=== PATIENT | female | born 1945 | race Caucasian/White ===

== ENCOUNTER 2016-07-01 12:20 | Day surgery (SDC) | payer MEDICARE ==
[2016-06-28 09:18] VITALS: BMI 46.8
[~2016-07-01 12:20] MED LIST: LACTATED RINGERS 1,000 ML IV SCH
[2016-07-01 12:41] VITALS: RESP 18; TEMP 98
[2016-07-01 12:47] LABS: Glucose,Whole Blood 102 mg/dL (75-99)
[2016-07-01] MEDS ORDERED: LACTATED RINGERS 1,000 ML IV ONE (12:47)
[2016-07-01] MEDS ORDERED: LIDOCAINE 1% 20 ML VIAL (10MG/ML) FOR IV START INTRADERMA ONE (12:48)
[2016-07-01] MEDS ORDERED: LIDOCAINE 1% INJ 10MG/ML (20 ML MDV) ONE (12:50)
[2016-07-01] MEDS ORDERED: PROPOFOL 10 MG/ML 20 ML VIAL IV ONE (12:50)
--- NOTE | 2016-07-01 13:15 | P.GSHP ---
History of Present Illness H&P Date: 07/01/16 Chief Complaint: History of colon cancer Patient here today for colonoscopy. She underwent a low anterior resection last year. Patient is having intermittent constipation. No rectal bleeding or melena. Past Medical History Past Medical History: Cancer, COPD, Diabetes Mellitus, Hyperlipidemia, Hypertension, Liver Disease, Osteoarthritis (OA), Sleep Apnea/CPAP/BIPAP Additional Past Medical History / Comment(s): hx melanoma, IDDM type II, "fatty liver", colon CANCER with surgery and chemo, KIDNEY STONE, neuropathy bilateral hands and feet History of Any Multi-Drug Resistant Organisms: None Reported Past Surgical History: Bowel Resection, Orthopedic Surgery Additional Past Surgical History / Comment(s): 03/08/16 repair incarcerated hernia with mech and removal of port a cath. Other surgical hx: D&C, left foot surgery, PORT A CATHETER, DENTAL IMPLANTS Past Anesthesia/Blood Transfusion Reactions: Previous Problems w/ Anesthesia Additional Past Anesthesia/Blood Transfusion Reaction / Comment(s): "came out fighting, difficult coming out" Past Psychological History: Depression Additional Psychological History / Comment(s): Pt states medication for depression is working well. She lives alone. She uses a cane prn. She drives. Smoking Status: Former smoker Past Alcohol Use History: Rare Additional Past Alcohol Use History / Comment(s): started smoking at age 15 QUIT AT AGE 56 Past Drug Use History: None Reported - Past Family History Brother(s) Family Medical History: Cancer Additional Family Medical History / Comment(s): leukemia Medications and Allergies Home Medications Medication Instructions Recorded Confirmed Type Hydrochlorothiazide [Hydrodiuril] 25 mg PO DAILY 04/08/14 07/01/16 History Nebivolol HCl [Bystolic] 10 mg PO QAM 04/08/14 07/01/16 History Simvastatin [Zocor] 40 mg PO HS 04/08/14 07/01/16 History Tiotropium 18 Mcg/Puff [Spiriva] 1 puff INHALATION RT-DAILY PRN 04/08/14 History Ubidecarenone [Co Q-10] 100 mg PO DAILY 04/08/14 06/28/16 History buPROPion XL [Wellbutrin XL] 150 mg PO QAM 04/08/14 07/01/16 History Fish Oil/Dha/Epa [Fish Oil 1,200 1 cap PO DAILY 04/14/14 06/28/16 History mg Fish Oil] Fluticasone Propionate [Flovent 1 puff INHALATION RT-BID PRN 04/14/14 07/01/16 History Hfa 220MCG] Loratadine [Alavert] 10 mg PO DAILY PRN 01/25/15 07/01/16 History Insulin Aspart [NovoLOG] 0 unit SQ AC-TID 03/07/16 07/01/16 History Insulin Glargine,Hum.rec.anlog 41 unit SQ 2100 03/07/16 07/01/16 History [Lantus Solostar] Magnesium 200 mg PO DAILY 03/07/16 06/28/16 History Pregabalin [Lyrica] 75 mg PO BID 03/07/16 07/01/16 History metFORMIN HCL [Glucophage] 500 mg PO DAILY 03/07/16 07/01/16 History Losartan [Cozaar] 25 mg PO QAM 03/08/16 07/01/16 History Donepezil [Aricept] 10 mg PO HS 06/24/16 07/01/16 History Multivits-Min/Iron/FA/Lutein 1 each PO DAILY 06/28/16 06/28/16 History [Centrum Silver Women Tablet] Allergies Allergy/AdvReac Type Severity Reaction Status Date / Time bee pollen Allergy Severe Anaphylaxis Verified 06/28/16 09:08 hydromorphone [From Dilaudid] Allergy Hallucinati Verified 06/28/16 09:08 ons Penicillins Allergy Rash/Hives Verified 06/28/16 09:08 Surgical - Exam Vital Signs Temp Pulse Resp BP Pulse Ox 98.0 F 67 18 121/67 98 07/01/16 12:40 07/01/16 12:40 07/01/16 12:40 07/01/16 12:40 07/01/16 12:40 Physical exam: General: Well-developed, well-nourished HEENT: Normocephalic, sclerae nonicteric Abdomen: Nontender, nondistended Extremities: No edema Neuro: Alert and oriented Results - Labs Abnormal Lab Results - Last 24 Hours (Table) 07/01/16 Range/Units 12:46 POC Glucose (mg/dL) 102 H (75-99) mg/dL Assessment and Plan (1) Colon cancer Narrative/Plan: Will proceed with colonoscopy today. Status: Acute
--- NOTE | 2016-07-01 13:19 | P.PCN ---
Date of Procedure: 07/01/16 Procedure(s) Performed: PREOPERATIVE DIAGNOSIS: History of colon cancer POSTOPERATIVE DIAGNOSIS: Normal exam PROCEDURE: Colonoscopy ANESTHESIA: MAC SURGEON: Pk Lynn M.D. SPECIMENS: None ENDOSCOPIC PROCEDURE: The patient was placed on the endoscopy table in the left decubitus position. The Olympus colonoscope was inserted into the anus and passed under direct visualization to the base of the cecum. The appendiceal orifice was visualized. From that point the scope was slowly withdrawn inspecting all surfaces carefully. There were no neoplastic inflammatory or polypoid lesions throughout the cecum, ascending, transverse, descending, and distal rectum. The patient's sigmoid colon had been surgically removed. The anastomosis was widely patent and present at about 12 cm. It was no visible diverticulosis. Overall the patient's prep was slightly suboptimal. Digital rectal examination was normal. The patient was taken to the recovery room in stable condition per anesthesia guidelines. RECOMMENDATIONS: Increase fiber. Anticipate follow-up colonoscopy in 3 years.
[2016-07-01 13:40] LABS: Glucose,Whole Blood 99 mg/dL (75-99)
[2016-07-01 13:47] VITALS: BP 114/85; PULSE 60
== END 2016-07-01 14:02 | disposition home or self-care (01) ==
LOC: ORWHC2ENDO 12:20
PROVIDERS: ATTEND Surgery
DX: Z85.038 Personal history of other malignant neoplasm of large intestine (principal); Z90.49 Acquired absence of other specified parts of digestive tract; Z92.21 Personal history of antineoplastic chemotherapy; J44.9 Chronic obstructive pulmonary disease, unspecified; E11.9 Type 2 diabetes mellitus without complications; E78.5 Hyperlipidemia, unspecified; I10 Essential (primary) hypertension; G47.30 Sleep apnea, unspecified; F32.9 Major depressive disorder, single episode, unspecified; Z79.84 Long term (current) use of oral hypoglycemic drugs; Z79.4 Long term (current) use of insulin; Z79.51 Long term (current) use of inhaled steroids; Z79.899 Other long term (current) drug therapy; Z88.5 Allergy status to narcotic agent; Z88.0 Allergy status to penicillin; Z91.030 Bee allergy status; Z87.891 Personal history of nicotine dependence
CPT/HCPCS: 45378; J2001; J2704; 99153

== ENCOUNTER → 2016-07-23 | Outpatient (CLI) | payer MEDICARE ==
--- NOTE | 2016-07-23 16:56 | US ---
EXAMINATION TYPE: US kidneys/renal and bladder DATE OF EXAM: 07/23/2016 4:38 PM COMPARISON: NONE CLINICAL HISTORY: R80.9 Proteinuria, N18.1 CKD Stage 1. Diabetic; on meds for HTN, diabetes, depressi on, cholesterol; [id number].[id number]; right renal stone EXAM MEASUREMENTS: Right Kidney: 10.0 x 7.1 x 4.7cm Left Kidney: 12.8 x 5.5 x 4.9 cm Post Void Residual Volume: fully emptied TECHNOLOGIST IMPRESSION: exam is technically limited due to large body habitus Right Kidney: mid pole calcification = 1.8 x 1.5 x 0.8cm Left Kidney: No hydronephrosis or masses seen Bladder: wnl Bilateral Jets seen: Yes Normal Post Void Residual: Yes There is a nonobstructing calculus within the right renal pelvis. IMPRESSION: NONOBSTRUCTING RIGHT-SIDED NEPHROLITHIASIS.
== END ==
LOC: RADUSWWP 15:42
PROVIDERS: ATTEND Family Medicine
DX: N20.0 Calculus of kidney (principal); N18.1 Chronic kidney disease, stage 1; Z88.5 Allergy status to narcotic agent; Z88.0 Allergy status to penicillin; Z91.030 Bee allergy status
CPT/HCPCS: 76770

== ENCOUNTER → 2016-10-29 | Outpatient (CLI) | payer MEDICARE ==
[2016-10-29 11:29] LABS: Blood Urea Nitrogen 16 mg/dL (7-17); Non-African American GFR(MDRD) 55 (>60 ml/min/1.73 sqM)
--- NOTE | 2016-10-29 13:21 | CT ---
EXAMINATION TYPE: CT abdomen pelvis w con DATE OF EXAM: 10/29/2016 REFERENCE: Previous study dated 10/12/2015. HISTORY: C18.7 colon ca HISTORY: Patient has no complaints at time of study. Follow up study for known colon ca. REFERENCE: NONE CT DLP: 2519.1 mGy Automated exposure control for dose reduction was used. TECHNIQUE: Helical acquisition through the abdomen and pelvis was obtained following the oral ingesti on of with Oral Contrast and following intravenous administration of 80 mL of Visipaque 320. The data was reformatted in axial, coronal and sagittal projections. FINDINGS: There is a 5.9 mm, noncalcified, triangular nodule in the lateral aspect of the right lowe r lobe, best seen on image 1. This was not seen with certainty on the previous examination. No other parenchymal nodules are seen. There is no pleural or pericardial fluid. The heart is not enlarged. Within the abdomen, there is evidence of old granulomatous disease in the spleen. The spleen is lucretia l in size. The liver is enlarged measuring 23 cm. There is a partial eventration of the right hemidia phragm. The gallbladder is normal. Both adrenal glands appear normal. There is a 7.2 mm linear, nonobstructing calculus in the anterior lower pole calyx of the right kidne y. The left kidney is normal. The pancreas is unremarkable. There is moderate atheromatous calcification of the visualized arterial tree. There is no significant retroperitoneal, iliac or inguinal adenopathy. The bladder is unremarkable. The uterus and ovaries are not visualized. There is been a previous sigmoid resection. There is no significant diverticular change and there is no radiographic evidence of diverticulitis. The appendix is not visualized. Small bowel loops appear normal. No free fluid and no free air is seen. There has been repair of the ventricles patient's ventral hernia. There is a soft tissue mass at the surgical site which may represent an old organized hematoma. This measures 3.4 x 8.1 cm. There is diffuse degenerative disc disease with vacuum phenomena present at all lumbar levels. There is facet arthropathy in the lower lumbar spine. No bony destructive lesion is seen. IMPRESSION: 1. NEW, SOLITARY PULMONARY NODULE IN THE LATERAL ASPECT OF THE RIGHT LOWER LOBE. FULL CT OF THE CHEST WOULD BE SUGGESTED. 2. OLD GRANULOMATOUS DISEASE IN THE SPLEEN. 3. HEPATOMEGALY. 4. NONOBSTRUCTING RIGHT-SIDED NEPHROLITHIASIS. 5. POSTSURGICAL CHANGE. 6. DEGENERATIVE CHANGE WITHIN THE SPINE.
== END | disposition home or self-care (01) ==
LOC: RADCTMAIN 10:49
PROVIDERS: ATTEND Internal Medicine Hematology & Oncology
DX: N20.0 Calculus of kidney (principal); R16.0 Hepatomegaly, not elsewhere classified; C18.7 Malignant neoplasm of sigmoid colon; Z98.890 Other specified postprocedural states; Z88.0 Allergy status to penicillin; Z88.5 Allergy status to narcotic agent
CPT/HCPCS: 82565; 84520; 74177; 36415; Q9967

== ENCOUNTER → 2016-11-19 | Outpatient (CLI) | payer MEDICARE ==
[2016-11-19 12:12] LABS: Calcium 8.9 mg/dL (8.4-10.2); Total Bilirubin 0.4 mg/dL (0.2-1.3); Total Protein 8.1 g/dL (6.3-8.2)
--- NOTE | 2016-11-19 13:55 | CT ---
EXAMINATION TYPE: CT chest wo con DATE OF EXAM: 11/19/2016 COMPARISON: Previous study dated 01/10/2015. HISTORY: Colon cancer. Abnormal lung field CT DLP: 585.90 mGycm. Automated Exposure Control for Dose Reduction was Utilized. TECHNIQUE: CT scan of the thorax is performed without IV contrast. FINDINGS: There are 7, stable nodular opacities in the right middle and lower lobes. Triangular densi ty noted on the patient's CT scan of the abdomen previously measured 6 mm and today measures 6.8 mm. This is within the areas of measurement. No new nodules are seen. There is no axillary, internal mammary or hilar adenopathy. There is no pleural or pericardial fluid. The aorta is normal in caliber. The heart is not enlarged. There are coronary artery calcifications as well as other vascular calcifications. There is evidence of old granulomatous disease of the spleen. There is mild fullness to the left adre nal gland without a definite mass being seen. IMPRESSION: 1. STABLE RIGHT-SIDED PULMONARY NODULES. 2. EVIDENCE OF OLD GRANULOMATOUS DISEASE OF THE SPLEEN.
== END | disposition home or self-care (01) ==
LOC: RADCTMAIN 11:28
PROVIDERS: ATTEND Internal Medicine Hematology & Oncology
DX: R91.8 Other nonspecific abnormal finding of lung field (principal)
CPT/HCPCS: 36415; 71250; 80053; 82378

== ENCOUNTER → 2017-11-12 | Outpatient (CLI) | payer MEDICARE ==
--- NOTE | 2017-11-12 12:43 | CT ---
EXAMINATION TYPE: CT abdomen pelvis w con DATE OF EXAM: 11/12/2017 HISTORY: Colon cancer progress study completed chemotherapy [address] DLP: 4299.60mGycm Automated Exposure Control for Dose Reduction was Utilized. CONTRAST: CT scan of the abdomen and pelvis is performed with oral and with IV Contrast, patient injected with 80 mL of Isovue 300. COMPARISON: CT abdomen and pelvis October 29, 2016 and older studies FINDINGS: LUNG BASES: Persistent linear scarring in lingula near diaphragm is redemonstrated there is calcifica tion at level of aortic root and coronary artery calcification which is noted marker for coronary art selvin disease redemonstrated. There is stable 4 mm nodule right midlung laterally axial image 7 unchang ed back through 2014 PET/CT. LIVER/GB: Liver is diffusely low dense consistent with fatty infiltration. Dependent density in gallb ladder consistent with tiny stones axial image 34 is redemonstrated. PANCREAS: No significant abnormality is seen. SPLEEN: There is persistent splenomegaly measuring 18.8 cm long axis axial image 30. Scattered calcif ications felt to reflect product of old granulomatous disease are again seen. ADRENALS: Slight asymmetric thickening to left adrenal gland favors benign hyperplasia without signif icant change from prior studies. KIDNEYS: There is redemonstration of posterior thin-walled 1.7 cm cyst lower pole level right kidney with curvilinear dependent density favoring milk of calcium axial image 46 felt stable. There is symm etric cortical medullary uptake and excretion from both kidneys without hydronephrosis seen bilateral ly. There is persistent 5 mm calculus mid pole level right kidney axial image 43. BOWEL: The oral contrast reaches level of splenic flexure. Surgical sutures sigmoid rectal junction on axial image 80 are redemonstrated. There is no suspicious small or large bowel dilatation. Occasio nal diverticula in sigmoid colon is present. UTERUS/ADNEXA: Anteverted uterus is redemonstrated LYMPH NODES: No greater than 1cm abdominal or pelvic lymph nodes are appreciated. OSSEOUS STRUCTURES: There is multilevel spurring in the spine. There is multilevel vacuum disc phenom enon and disc space narrowing. There is facet arthropathy lower lumbar levels. OTHER: Vertical anterior midline scar is again seen. There is persistent deep fluid collection axial image 60 measuring 4.5 x 1.4 cm diminished in size from most recent prior exam likely reflecting reso lving postsurgical hematoma. There is fairly moderate calcified plaque of aorta extending into iliac branch vessels IMPRESSION: 1. No new mass or adenopathy is identified to suggest neoplastic recurrence. 2.
== END | disposition home or self-care (01) ==
LOC: RADCTMAIN 10:09
PROVIDERS: ATTEND Internal Medicine Hematology & Oncology
DX: C18.7 Malignant neoplasm of sigmoid colon (principal); Z88.0 Allergy status to penicillin; Z88.5 Allergy status to narcotic agent
CPT/HCPCS: 82565; 84520; 74177; 36415; Q9967

== ENCOUNTER → 2017-12-29 | Outpatient (CLI) | payer MEDICARE ==
--- NOTE | 2017-12-29 16:54 | CT ---
EXAMINATION TYPE: CT shoulder RT wo con DATE OF EXAM: 12/29/2017 COMPARISON: None HISTORY: 72-year-old female with pain after fall 2 weeks ago. TECHNIQUE: Contiguous axial scanning of the right shoulder without IV contrast. Coronal and sagittal reconstructions performed. CT DLP: 1093.8 mGycm Automated exposure control for dose reduction was used. FINDINGS: Moderate degenerative joint space narrowing with marginal spurring at the acromioclavicular joints. O verall preserved bulk of the rotator cuff musculature. There is an impacted, comminuted fracture of the proximal right humerus. The degree of impaction of t he surgical neck component measures 2.1 cm, referred for coronal image 29. There is a comminuted frac ture component involving the greater tuberosity which is nondisplaced. No dislocation or additional acute fracture is seen. Mild emphysematous change in the lungs. IMPRESSION: 1. COMMINUTED FRACTURE OF THE PROXIMAL RIGHT HUMERUS. THIS MAY BE A TWO-PART FRACTURE GIVEN 2.1 CM OF IMPACTION OF THE SURGICAL NECK COMPONENT. CLINICALLY CORRELATE. 2. NONDISPLACED COMPONENT OF THE GREATER TUBEROSITY. 3. MODERATE AC JOINT OA.
== END | disposition home or self-care (01) ==
LOC: RADCTMAIN 14:50
PROVIDERS: ATTEND Orthopaedic Surgery
DX: M19.011 Primary osteoarthritis, right shoulder (principal); S42.254A Nondisplaced fracture of greater tuberosity of right humerus, initial encounter for closed fracture

== ENCOUNTER → 2018-11-18 | Outpatient (CLI) | payer MEDICARE ==
[2018-11-18 11:01] LABS: Basophils # (A) 0.1 k/uL (0-0.2); Basophils % (A) 1 %; Eosinophils # (A) 0.2 k/uL (0-0.7); Eosinophils % (A) 2 %; HCT 40.8 % (34.0-46.0); Hypochromasia Slight; Lymphocytes # (A) 1.4 k/uL (1.0-4.8); Lymphocytes % (A) 18 %; MCH 31.8 pg (25.0-35.0); MCHC 31.9 g/dL (31.0-37.0); MCV 99.9 fL (80.0-100.0); Macrocytosis Slight; Mean Platelet Volume 8.5; Monocytes # (A) 0.3 k/uL (0-1.0); Monocytes % (A) 4 %; Neutrophils # (A) 5.7 k/uL (1.3-7.7); Neutrophils % (A) 74 %; Platelet Count 149 k/uL (150-450); RBC 4.08 m/uL (3.80-5.40); RDW 14.8 % (11.5-15.5); WBC 7.8 k/uL (3.8-10.6)
[2018-11-18 11:19] LABS: Albumin 3.9 g/dL (3.5-5.0); Calcium 9.2 mg/dL (8.4-10.2); Potassium 4.2 mmol/L (3.5-5.1); Total Bilirubin 0.5 mg/dL (0.2-1.3); Total Protein 7.9 g/dL (6.3-8.2)
--- NOTE | 2018-11-18 12:31 | CT ---
EXAMINATION TYPE: CT abdomen pelvis w con DATE OF EXAM: 11/18/2018 COMPARISON: 11/12/2017 HISTORY: C18.7 Colon Cancer, Z03.89 Suspect Mets CONTRAST: CT scan of the abdomen and pelvis is performed with Oral Contrast and with IV Contrast, patient injec dahlia with 100 mL of Isovue 300. FINDINGS: LUNG BASES-: No visible nodule. No infiltrate. LIVER/GB: There is evidence of cholelithiasis. Hepatomegaly with underlying hepatic steatosis. No space occupying hepatic lesion. Biliary tree is of normal caliber. PANCREAS: No inflammation. No distinct mass. SPLEEN: Splenomegaly measuring 13.9 cm craniocaudal dimension. Splenic granulomas identified. No lesi on seen. ADRENALS: No nodule. No thickening. KIDNEYS/BLADDER: No hydronephrosis. No nephrolithiasis. Partial calcification cystic lesion lower p ole right kidney measures 2.6 cm and is unchanged from prior study with probable underlying milk of c alcium. Urinary bladder grossly unremarkable. BOWEL: Normal appendix. Normal bowel caliber. No inflammation. Sigmoid resection changes redemonstr ated. No evidence for recurrent mass. GENITAL ORGANS: No gross abnormality. LYMPH NODES: No greater than 1cm abdominal or pelvic lymph nodes are appreciated. AORTA: No significant abnormality. OSSEOUS STRUCTURES: No significant abnormality is seen. OTHER: No significant additional abnormality is seen. IMPRESSION: 1. No evidence for recurrent mass or metastatic disease at this time. 2. Hepatosplenomegaly. 3. Complex right renal lesion is stable.
[2018-11-18 18:42] LABS: Hemoglobin A1C 6.5 % (4.0-6.0)
== END | disposition home or self-care (01) ==
LOC: RADCTMAIN 10:13
PROVIDERS: ATTEND Internal Medicine Hematology & Oncology
DX: N28.9 Disorder of kidney and ureter, unspecified (principal); R16.2 Hepatomegaly with splenomegaly, not elsewhere classified; C18.7 Malignant neoplasm of sigmoid colon; Z03.89 Encounter for observation for other suspected diseases and conditions ruled out; Z88.0 Allergy status to penicillin; Z88.5 Allergy status to narcotic agent
CPT/HCPCS: 80053; 85025; 83036; 74177; 36415; Q9967

== ENCOUNTER → 2019-11-10 | Outpatient (CLI) | payer MEDICARE ==
--- NOTE | 2019-11-10 15:04 | CT ---
EXAMINATION TYPE: CT abdomen pelvis w con DATE OF EXAM: 11/10/2019 COMPARISON: 11/18/2018 INDICATION: Colon cancer DLP: 4008.20 mGycm, Automated exposure control for dose reduction was used. CONTRAST: Isovue 300. Study performed with Oral Contrast TECHNIQUE: Axial images were obtained from above the diaphragm to the pubic rami in the axial plane a t 5 mm thick sections. Reconstructed images are reviewed on the computer in the coronal plane. FINDINGS: Limited CT sections are obtained the lung bases. The lung bases are clear. Coronary artery calcific ation is present. CT ABDOMEN: Liver: Normal Spleen: There are calcifications within the spleen compatible with calcified granuloma. Pancreas: Normal Adrenal glands: The adrenal glands are normal. Gallbladder: Cholelithiasis. Kidneys: No masses are evident. No hydronephrosis is present. No cysts are present. Delayed images were obtained through the kidneys, which remain unremarkable. Aorta: Vascular calcification is within the aorta. Inferior vena cava: Normal. CT PELVIS: There is been a right hemicolectomy. There are loops of bowel which are incompletely distended or lac k oral contrast limiting their evaluation. Fecal debris is in the distal colon and rectum. Appendix: Not identified Urinary bladder: Normal. Genitourinary structures: Uterus appears unremarkable. Adnexal regions are clear. No free fluid is wi thin the pelvis. Osseous structures: No suspicious lytic or sclerotic lesions. Facet degenerative changes are within t he lumbar spine. IMPRESSIONS: 1. No suspicious changes suggest recurrent or metastatic colon cancer. 2. Cholelithiasis.
== END | disposition home or self-care (01) ==
LOC: RADCTMAIN 08:57
PROVIDERS: ATTEND Internal Medicine Hematology & Oncology
DX: K80.20 Calculus of gallbladder without cholecystitis without obstruction (principal); C18.7 Malignant neoplasm of sigmoid colon; Z88.0 Allergy status to penicillin; Z88.5 Allergy status to narcotic agent
CPT/HCPCS: 82565; 84520; 74177; 36415; Q9967

== ENCOUNTER → 2021-12-18 | Outpatient (CLI) | payer MEDICARE ==
--- NOTE | 2021-12-18 15:25 | BD ---
EXAMINATION TYPE: Axial Bone Density DATE OF EXAM: 12/18/2021 COMPARISON: NONE CLINICAL HISTORY: 76 years year old Female. ICD-10 CODE: Z12.31 Screen mammo Height: 5'9 1/2 Weight: 370 FRAX RISK QUESTIONS: History of Fracture in Adulthood: y Secondary Osteoporosis: 3. Menopause before 45: y RISK FACTORS HISTORY OF: History of Wrist Fracture: y When: age 24 Active: n Postmenopausal woman: y Frequent falls: y MEDICATIONS: Additional Medications: cholesterol, depression,blood pressure,diabetic Additional History: cancer,skin cancer ,colon, chemotherapy for colon less than 10 years ago EXAM MEASUREMENTS: Bone mineral densitometry was performed using the [employer]DB[employer] System. Bone mineral density as measured about the Lumbar spine is: ----- L1-L4(G/cm2): 1.183 T Score Values are as follows: ----- L1: -1.1 ----- L2: -0.7 ----- L3: 0.1 ----- L4: 1.3 ----- L1-L4: -0.9 Bone mineral density about the R hip (g/cm2): 0.769 Bone mineral density about the L hip (g/cm2): 0.732 T Score values are as follows: -----R Neck: -1.9 -----L Neck: -2.2 -----R Total: -2.0 -----L Total: -1.4 FRAX%s: The graph provided illustrates a 18.1% chance for a major osteoporotic fx and a 4.4% chance f or the hips probability for fx in 10 years time. IMPRESSION: Osteopenia (T Score between -2.5 and -1). There is slightly increased risk of fracture and the patient may be considered for treatment. Re-Screen 2-5 years. NOTE: T-SCORE=SD OF THE YOUNG ADULT MEAN.
--- NOTE | 2021-12-19 08:57 | MM ---
Reason for Exam: Screening (asymptomatic). Last mammogram was performed 4 year(s) and 4 month(s) ago. Patient History: Menarche at age 10. Patient has no children. Postmenopausal. Colorectal cancer, age 69. Patient used Hormonal Contraceptives for 10 years. Risk Values: Danya 5 year model risk: 2.1%. NCI Lifetime model risk: 4.1%. Prior Study Comparison: 08/06/2013 Bilateral Screening Mammogram, [facility]. 10/09/2015 Bilateral Screening Mammogram, [facility]. 08/12/2017 Bilateral Screening Mammogram, [facility]. Tissue Density: There are scattered fibroglandular densities. Findings: Analyzed By CAD. There is a new 1.3 cm mass demonstrated within the inner lower right breast middle depth. This is oval with irregular margins and demonstrates calcification. Overall Assessment: Incomplete: need additional imaging evaluation, BI-RAD 0 Management: Diagnostic Breast Ultrasound of the right breast. A clinical breast exam by your physician is recommended on an annual basis and results should be correlated with mammographic findings. [facility] will attempt to contact patient to return for supplemental views and ultrasound if indicated. Electronically signed and approved by: Karl Vallecillo D.O.
== END | disposition home or self-care (01) ==
LOC: RADBDWWP 14:19
PROVIDERS: ATTEND Family Medicine
DX: Z12.31 Encounter for screening mammogram for malignant neoplasm of breast (principal); M85.89 Other specified disorders of bone density and structure, multiple sites; Z78.0 Asymptomatic menopausal state; Z85.038 Personal history of other malignant neoplasm of large intestine
CPT/HCPCS: 77063; 77067; 77080

== ENCOUNTER 2022-02-25 06:13 | Day surgery (SDC) | payer MEDICARE ==
[~2022-02-25 06:13] MED LIST changes: +ACETAMINOPHEN TAB 500 MG TAB PO PRN; +HEPARIN SODIUM,PORCINE/PF 5,000 UNIT/0.5 ML SYRINGE SQ PRN; -LACTATED RINGERS 1,000 ML IV SCH; +Pre Op ABX Message 1 EACH MISC MISCELLANE ONE
[2022-02-25] MEDS ORDERED: LACTATED RINGERS 1,000 ML IV SCH (06:14)
[2022-02-25 07:26] LABS: Glucose,Whole Blood 123 mg/dL (70-110)
[2022-02-25] MEDS ORDERED: ceFAZolin 3 GM in SODIUM CHLORIDE 0.9% 100 ML IVPB ONE (07:35)
[2022-02-25 07:39] LABS: Basophils # (A) 0.1 k/uL (0-0.2); Basophils % (A) 1 %; Eosinophils # (A) 0.2 k/uL (0-0.7); Eosinophils % (A) 3 %; HCT 36.3 % (34.0-46.0); HGB 12.3 gm/dL (11.4-16.0); Lymphocytes # (A) 1.3 k/uL (1.0-4.8); Lymphocytes % (A) 17 %; MCHC 33.8 g/dL (31.0-37.0); MCV 97.6 fL (80.0-100.0); Mean Platelet Volume 9.7; Monocytes # (A) 0.4 k/uL (0-1.0); Monocytes % (A) 6 %; Neutrophils # (A) 5.5 k/uL (1.3-7.7); Neutrophils % (A) 73 %; Platelet Count 107 k/uL (150-450); RBC 3.73 m/uL (3.80-5.40); RDW 13.5 % (11.5-15.5); WBC 7.5 k/uL (3.8-10.6)
--- NOTE | 2022-02-25 07:41 | P.NAPBC ---
NAPBC Queries - NAPBC Queries Was patient's case review presented at [facility] tumor board? If no, comment.: No (Patient just seen in office last week. May be presented postop) Was patient's pathology reviewed at [facility]? If no, comment.: Yes Was breast conservation surgery offered? If no, comment.: Yes Was sentinel node biopsy offered? If no, comment.: Yes Was diagnosis confirmed by percutaneous core biopsy? If no, comment.: Yes Is patient mastectomy patient?: No Was a preop referral to reconstructive surgeon offered?: Yes Clinical Stage: 1
[2022-02-25 07:56] LABS: Calcium 8.5 mg/dL (8.4-10.2); Potassium 3.8 mmol/L (3.5-5.1)
[2022-02-25] MEDS ORDERED: ONDANSETRON 4 MG/2 ML VIAL ONE (07:57)
[2022-02-25] MEDS ORDERED: LIDOCAINE 1% INJ 10MG/ML (20 ML MDV) SQ ONE (08:05)
[2022-02-25] MEDS ORDERED: LIDOCAINE 2% INJ 20 MG/ML (2 ML VIAL) ONE (08:37)
[2022-02-25] MEDS ORDERED: PHENYLEPHRINE-0.9% NACL SYG 1,000 MCG/10 ML SYRINGE ONE (08:37)
[2022-02-25] MEDS ORDERED: PROPOFOL 10 MG/ML 20 ML VIAL IV ONE (08:37)
[2022-02-25] MEDS ORDERED: fentaNYL (PF) 50 MCG/ML 2 ML AMP ONE (08:37)
[2022-02-25] MEDS ORDERED: SUCCINYLCHOLINE CHLORIDE 200 MG/10 ML VIAL IV ONE (08:37)
[2022-02-25] MEDS ORDERED: ONDANSETRON 4 MG/2 ML VIAL IVP ONE (08:40)
[2022-02-25] MEDS ORDERED: DEXAMETHASONE SOD PHOSPHATE 4 MG/ML 1 ML VIAL IVP ONE (08:40)
[2022-02-25] MEDS ORDERED: BUPIVACAINE (PF) 0.25% 30 ML VIAL SQ ONE ×2 (09:25)
[2022-02-25] MEDS ORDERED: NALOXONE 0.4 MG/ML 1 ML VIAL IV PRN (09:50)
[2022-02-25 09:53] VITALS: TEMP 97.8
[2022-02-25] MEDS ORDERED: ACETAMINOPHEN TAB 325 MG TAB PO PRN (09:55)
--- NOTE | 2022-02-25 10:03 | P.OP ---
Date of Procedure: 02/25/22 Procedure(s) Performed: PREOPERATIVE DIAGNOSIS: Right breast cancer POSTOPERATIVE DIAGNOSIS: Same PROCEDURE: Right Breast wire localization lumpectomy SURGEON: Leah EBL: Minimal ANESTHESIA: General COMPLICATIONS: None OPERATIVE PROCEDURE: Patient was placed on the operating room table in the supine position. The wire entrance site was then addressed. This was present at the 4:00 location. A curvilinear incision was made adjacent to the wire entrance site. I followed the wire down into the breast tissue. An adequate lumpectomy specimen then took place around the wire. Margins of 1.5-2 cm worth attempted to be achieved. Palpation of the specimen suggested that the medial margin was somewhat close. I took an additional margin medially and this margin was painted the [place] color on the new margin side. The initial specimen was also painted 6 colors. I did unintentionally use [place] on the medial rather than lateral margin. For that reason on the lumpectomy specimen the yellow color was used for the lateral margin. Clips were used to identify the lumpectomy cavity. The clip was confirmed to be within the lumpectomy specimen by radiology. The subcutaneous tissues were closed using 3-0 Vicryl sutures. The skin was closed using a running 4-0 Monocryl stitch. Skin glue was then applied. DISPOSITION: Stable to recovery room
[2022-02-25 10:34] VITALS: RESP 20
[2022-02-25 10:54] LABS: Glucose,Whole Blood 128 mg/dL (70-110)
--- NOTE | 2022-02-25 11:15 | MM ---
Risk Values: Danya 5 year model risk: 2.1%. NCI Lifetime model risk: 3.8%. Electronically signed and approved by: Low Denise DO
[2022-02-25 11:20] VITALS: BP 109/55; PULSE 75
== END 2022-02-25 11:35 | disposition home or self-care (01) ==
LOC: OR 06:13
PROVIDERS: ATTEND Surgery
DX: C50.911 Malignant neoplasm of unspecified site of right female breast (principal); I10 Essential (primary) hypertension; E78.5 Hyperlipidemia, unspecified; J44.9 Chronic obstructive pulmonary disease, unspecified; G47.33 Obstructive sleep apnea (adult) (pediatric); N20.0 Calculus of kidney; M19.90 Unspecified osteoarthritis, unspecified site; G62.9 Polyneuropathy, unspecified; Z88.8 Allergy status to other drugs, medicaments and biological substances; Z91.030 Bee allergy status; Z99.89 Dependence on other enabling machines and devices; Z85.3 Personal history of malignant neoplasm of breast
CPT/HCPCS: 80048; 85025; 76098; 19281; C1819; J0330; J1100; J0690; J2405; J2001 ×2; J3010; J2370; J2704; J1644; 88307

== ENCOUNTER 2022-03-25 09:16 | Day surgery (SDC) | payer MEDICARE ==
[2022-03-21 11:00] VITALS: BMI 52.4
[~2022-03-25 09:16] MED LIST changes: +DEXAMETHASONE SOD PHOSPHATE 4 MG/ML 1 ML VIAL IV ONE; +LACTATED RINGERS 1,000 ML IV SCH; +LIDOCAINE 1% (10MG/ML) FOR IV START INTRADERMA PRN; +MIDAZOLAM 2 MG/2 ML VIAL IV PRN; +ONDANSETRON 4 MG/2 ML VIAL IVP ONE
[2022-03-25 09:59] LABS: Glucose,Whole Blood 93 mg/dL (70-110)
[2022-03-25] MEDS ORDERED: MIDAZOLAM 2 MG/2 ML VIAL ONE (10:13)
[2022-03-25] MEDS ORDERED: PROPOFOL 10 MG/ML 20 ML VIAL IV ONE (10:13)
[2022-03-25] MEDS ORDERED: LIDOCAINE 2% INJ 20 MG/ML (2 ML VIAL) ONE (10:13)
[2022-03-25] MEDS ORDERED: fentaNYL (PF) 50 MCG/ML 2 ML AMP ONE (10:13)
[2022-03-25] MEDS ORDERED: SUCCINYLCHOLINE CHLORIDE 200 MG/10 ML VIAL IV ONE (10:13)
[2022-03-25] MEDS ORDERED: SODIUM CHLORIDE 0.9% 100 ML with ceFAZolin 2,000 MG IV ONE ×2 (10:37)
[2022-03-25] MEDS ORDERED: BUPIVACAIN-EPI 0.25%-1:200,000 30 ML VIAL SQ ONE ×2 (10:38)
[2022-03-25] MEDS ORDERED: NALOXONE 0.4 MG/ML 1 ML VIAL IV PRN (11:28)
--- NOTE | 2022-03-25 11:30 | P.OP ---
Date of Procedure: 03/25/22 Procedure(s) Performed: PREOPERATIVE DIAGNOSIS: Right breast cancer POSTOPERATIVE DIAGNOSIS: Same PROCEDURE: Right Breast re-lumpectomy SURGEON: Leah EBL: Minimal ANESTHESIA: General COMPLICATIONS: None OPERATIVE PROCEDURE: Patient was placed on the operating room table in the supine position. The breast was prepped and draped sterilely. The previous curvilinear incision was present in the lower inner quadrant. This previous scar was excised sharply. The subcutaneous tissues were dissected using el ectrocautery. Entrance into the seroma cavity took place. The inferior margin was then excised with a portion of the adjacent for margins. The new margin was painted green. This was then sent to pathology in formalin. Irrigation took place. No bleeding was seen. The subcutaneous tissues were closed using 3-0 Vicryl sutures. The skin was closed using a running 4-0 Monocryl stitch. Skin glue was then applied. DISPOSITION: Stable to recovery room
[2022-03-25 11:31] VITALS: TEMP 98.6
[2022-03-25 12:31] LABS: Glucose,Whole Blood 112 mg/dL (70-110)
[2022-03-25 13:03] VITALS: BP 111/68; PULSE 70; RESP 15
== END 2022-03-25 13:55 | disposition home or self-care (01) ==
LOC: OR 09:16
PROVIDERS: ATTEND Surgery
DX: D05.11 Intraductal carcinoma in situ of right breast (principal)
CPT/HCPCS: 19301; 88307; J2250; J0330; J1100; J2405; J0690; J3010; J2704; J1644; J2001

== ENCOUNTER → 2022-12-19 | Outpatient (CLI) | payer MEDICARE ==
--- NOTE | 2022-12-19 13:32 | MM ---
Reason for Exam: Hx of breast cancer, conservation therapy. Last screening mammogram was performed 12 month(s) ago. Patient History: Menarche at age 10. Patient has no children. Postmenopausal. Colorectal cancer, age 69. Breast cancer, right, age 77. Patient used Hormonal Contraceptives for 10 years. 03/25/2022, Lumpectomy on the Right side. 02/25/2022, Lumpectomy on the Right side. 02/25/2022, Malignant MG pre op needle loc RT on the right side. Tissue Density: The breast tissue is almost entirely fat. Findings: Analyzed By CAD. Stable right surgical clips. No new suspicious masses, calcifications or distortions. Overall Assessment: Benign, BI-RAD 2 Management: Screening Mammogram of both breasts in 1 year. Results were given to the patient verbally at the time of exam. Patient should continue monthly self-breast exams. A clinical breast exam by your physician is recommended on an annual basis. This exam should not preclude additional follow-up of suspicious palpable abnormalities. Note on Danya scores and lifetime risk: 1. A Danya score greater than 3% is considered moderate risk. If this is the case, consider specialist referral to assess eligibility for a risk reducing agent. 2. If overall lifetime risk for the development of breast cancer is 20% or higher, the patient may qualify for future screening with alternating mammogram and breast MRI. Electronically signed and approved by: Low Denise DO
== END | disposition home or self-care (01) ==
LOC: RADMAMWWP 12:39
PROVIDERS: ATTEND Surgery
DX: R92.8 Other abnormal and inconclusive findings on diagnostic imaging of breast (principal); Z78.0 Asymptomatic menopausal state; Z85.3 Personal history of malignant neoplasm of breast
CPT/HCPCS: 77066; G0279; 77062

== ENCOUNTER 2023-03-21 17:23 | Inpatient (IN) | payer MEDICARE ==
--- NOTE | 2023-03-21 18:32 | ED ---
General Adult HPI - General Chief complaint: Fall Stated complaint: fall Time Seen by Provider: 03/21/23 17:30 Source: patient, EMS, RN notes reviewed Mode of arrival: EMS Limitations: no limitations - History of Present Illness Initial comments: 78-year-old female presents to the emergency department with chief complaint of fall. She states that she had 2 falls today. She states that she feels like she "blacked out" she states that following this she had pain to her left knee but has been able to ambulate. She reports feeling a spinning sensation prior to the fall. She does state that she has a history of vertigo. She did report that she hit her head. She denies blood thinners. She denies chest pain. She is short of breath at baseline and uses 2 L of oxygen at home. - Related Data Home Medications Medication Instructions Recorded Confirmed Simvastatin [Zocor] 40 mg PO HS 04/08/14 03/22/23 buPROPion XL [Wellbutrin XL] 150 mg PO DAILY 04/08/14 03/22/23 hydroCHLOROthiazide [Hydrodiuril] 25 mg PO DAILY 04/08/14 03/22/23 Insulin Glargine,Hum.rec.anlog 68 unit SQ HS 03/07/16 03/22/23 [Lantus Solostar] Pregabalin [Lyrica] 75 mg PO BID 03/07/16 03/22/23 metFORMIN HCL [Glucophage] 500 mg PO DAILY 03/07/16 03/22/23 Multivit-Min/Iron/Folic/Lutein 1 tab PO DAILY 06/28/16 03/22/23 [Centrum Silver Women Tablet] Dulaglutide [Trulicity] 4.5 mg SQ WE 03/22/23 03/22/23 Letrozole [Femara] 2.5 mg PO DAILY 03/22/23 03/22/23 Losartan Potassium 100 mg PO DAILY 03/22/23 03/22/23 Magnesium Oxide [Mag-Ox] 250 mg PO HS 03/22/23 03/22/23 Ubidecarenone [Coenzyme Q10] 200 mg PO DAILY 03/22/23 03/22/23 Previous Rx's Medication Instructions Recorded Albuterol Inhaler [Ventolin Hfa 2 puff INHALATION RT-QID PRN #1 02/08/15 Inhaler] puff Allergies Allergy/AdvReac Type Severity Reaction Status Date / Time bee pollen Allergy Severe Anaphylaxis Verified 03/22/23 11:49 adhesive Allergy Unknown Verified 03/22/23 11:49 hydromorphone [From Dilaudid] Allergy Hallucinati Verified 03/22/23 11:49 ons Penicillins Allergy Rash/Hives Verified 03/22/23 11:49 Review of Systems ROS Statement: Those systems with pertinent positive or pertinent negative responses have been documented in the HPI. ROS Other: All systems not noted in ROS Statement are negative. Past Medical History Past Medical History: Cancer, COPD, Diabetes Mellitus, Hyperlipidemia, Hypertension, Liver Disease, Osteoarthritis (OA), Sleep Apnea/CPAP/BIPAP Additional Past Medical History / Comment(s): hx melanoma, IDDM type II, "fatty liver", colon CANCER with surgery and chemo, KIDNEY STONE, neuropathy bilateral hands and feet. Arthritis in thumbs. bilateral lower leg edema, no machine for sleep apnea. History of Any Multi-Drug Resistant Organisms: None Reported Past Surgical History: Bowel Resection, Breast Surgery, Orthopedic Surgery Additional Past Surgical History / Comment(s): 03/08/16 repair incarcerated hernia with mesh and removal of port a cath. Other surgical hx: D&C, left foot surgery, PORT A CATHETER, DENTAL IMPLANTS. 18 inches of bowel removed for Cancer. arthroscopic rt knee to remove torn meniscus. bilateral cataracts removed, right breast lumpectomy Past Anesthesia/Blood Transfusion Reactions: Previous Problems w/ Anesthesia Additional Past Anesthesia/Blood Transfusion Reaction / Comment(s): "came out fighting, difficult coming out" hard to wake up. Past Psychological History: Depression Smoking Status: Former smoker Past Alcohol Use History: None Reported Past Drug Use History: None Reported - Past Family History Brother(s) Family Medical History: Cancer Additional Family Medical History / Comment(s): leukemia 2 types General Exam Limitations: no limitations General appearance: alert, in no apparent distress Head exam: Present: other (Abrasion to left sided jaw) Eye exam: Present: normal appearance, PERRL, EOMI. Absent: scleral icterus, conjunctival injection, nystagmus, periorbital swelling, periorbital tenderness ENT exam: Present: mucous membranes dry, other (Ecchymosis to the inner lip, lower) Neck exam: Present: normal inspection. Absent: tenderness, meningismus, lymphadenopathy Respiratory exam: Present: wheezes. Absent: respiratory distress, rales, rhonchi, stridor Cardiovascular Exam: Present: regular rate, normal rhythm, normal heart sounds. Absent: systolic murmur, diastolic murmur, rubs, gallop, clicks GI/Abdominal exam: Present: soft, normal bowel sounds. Absent: distended, tenderness, guarding, rebound, rigid Extremities exam: Present: normal inspection, full ROM, normal capillary refill. Absent: tenderness, pedal edema, joint swelling, calf tenderness Back exam: Present: normal inspection Neurological exam: Present: alert, oriented X3 Psychiatric exam: Present: normal affect, normal mood Skin exam: Present: warm, dry, normal color, abrasion. Absent: rash Course Vital Signs 03/21/23 03/21/23 03/21/23 17:24 20:00 22:58 Temperature 98 F Pulse Rate 66 69 71 Respiratory 18 20 20 Rate Blood Pressure 127/92 122/68 116/53 O2 Sat by Pulse 97 95 94 L Oximetry 03/22/23 00:46 Temperature Pulse Rate 75 Respiratory 18 Rate Blood Pressure 111/74 O2 Sat by Pulse 95 Oximetry Medical Decision Making - Medical Decision Making Was pt. sent in by a medical professional or institution (, PA, LENS EDGER, urgent care, hospital, or senior care...) When possible be specific @ -No Did you speak to anyone other than the patient for history (EMS, parent, family, police, friend...)? What history was obtained from this source @ -No Did you review nursing and triage notes (agree or disagree)? Why? @ -I reviewed and agree with nursing and triage notes Were old charts reviewed (outside hosp., previous admission, EMS record, old EKG, old radiological studies, urgent care reports/EKG's, senior care records)? Report findings @ -No old charts were reviewed Differential Diagnosis (chest pain, altered mental status, abdominal pain women, abdominal pain men, vaginal bleeding, weakness, fever, dyspnea, syncope, headache, dizziness, GI bleed, back pain, seizure, CVA, palpatations, mental health, musculoskeletal)? @ -Differential Syncope: Valvular disease, hypertrophic cardiomyopathy, pulmonary embolism, tamponade, tachycardia, bradycardia, TX, hypovolemia, hemorrhage, dissection, anemia, intracranial hemorrhage, seizure, hypoglycemia, carbon monoxide poisoning, this is not meant to be an all-inclusive list. EKG interpreted by me (3pts min.). @ -EKG at 1919 shows sinus bradycardia rate 55, 1 second pause, AL 161, QRS 98, QTQTc [id number] X-rays interpreted by me (1pt min.). @ -Chest XR shows chest x-ray shows cardiomegaly with mild central vascular congestion, diffuse interstitial prominence XR left knee shows no acute fracture CT interpreted by me (1pt min.). @ -CT brain and C-spine shows no acute process. U/S interpreted by me (1pt. min.). @ -None done What testing was considered but not performed or refused? (CT, X-rays, U/S, labs)? Why? @ -None What meds were considered but not given or refused? Why? @ -None Did you discuss the management of the patient with other professionals (professionals i.e. , PA, LENS EDGER, lab, RT, psych nurse, social work nurse, professor of vegetable science, teacher, interface control officer, manager case)? Give summary @ -management discussed with Dr. Balderrama who is accepting of the admission. Was smoking cessation discussed for >3mins.? @ -No Was critical care preformed (if so, how long)? @ -No Were there social determinants of health that impacted care today? How? (Homelessness, low income, unemployed, alcoholism, drug addiction, transpor tation, low edu. Level, literacy, decrease access to med. care, intermediate, rehab)? @ -No Was there de-escalation of care discussed even if they declined (Discuss DNR or withdrawal of care, Hospice)? DNR status @ -No What co-morbidities impacted this encounter? (DM, HTN, Smoking, COPD, CAD, Cancer, CVA, ARF, Chemo, Hep., AIDS, mental health diagnosis, sleep apnea, morbid obesity)? @ -None Was patient admitted / discharged? Hospital course, mention meds given and route, prescriptions, significant lab abnormalities, going to OR and other pertinent info. @ -admitted. Patient presented to the emergency department with chief complaint of "blacking out" and falling causing her to hit her head. EKG shows sinus bradycardia. Chest x-ray shows cardiomegaly with mild central vascular congestion. X-ray of the left knee shows no acute fracture. CT brain and C- spine shows no acute process. Laboratory studies obtained which shows hemoglobin 8.1. Patient denies any known bleeding., Hematocrit 24.5; CMP shows sodium 141, potassium 4.2, creatinine 1.86, BUN 58; troponin negative, BNP 967; UA shows large leukocyte Estrace, 28 wbc's; Hemoccult positive. Case was disc ussed with Dr. Balderrama she will be admitted for anemia, abnormal EKG, cardiology consult. Dr. Balderrama requests repeat H&H every 6 hours. Patient stable at time of admission. Case discussed with Dr. Adame Undiagnosed new problem with uncertain prognosis? @ -No Drug Therapy requiring intensive monitoring for toxicity (Heparin, Nitro, I nsulin, Cardizem)? @ -No Were any procedures done? @ -No Diagnosis/symptom? @ -syncope, anemia Acute, or Chronic, or Acute on Chronic? @ -acute Uncomplicated (without systemic symptoms) or Complicated (systemic symptoms)? @ -uncomplicated Side effects of treatment? @ -No Exacerbation, Progression, or Severe Exacerbation? @ -No Poses a threat to life or bodily function? How? (Chest pain, [place], [place], pneumonia, PE, COPD, DKA, ARF, appy, cholecystitis, CVA, Diverticulitis, Homicidal, Suicidal, threat to staff... and all critical care pts) @ -No - Lab Data Result diagrams: 03/23/23 05:43 03/23/23 05:43 Lab Results 03/21/23 03/21/23 03/21/23 Range/Units 20:06 20:06 20:06 WBC 6.9 (3.8-10.6) k/uL RBC 2.46 L (3.80-5.40) m/uL Hgb 8.1 L (11.4-16.0) gm/dL Hct 24.5 L (34.0-46.0) % MCV 99.8 (80.0-100.0) fL MCH 32.9 (25.0-35.0) pg MCHC 32.9 (31.0-37.0) g/dL RDW 14.9 (11.5-15.5) % Plt Count 103 L (150-450) k/uL MPV 9.6 Neutrophils % 76 % Lymphocytes % 16 % Monocytes % 6 % Eosinophils % 1 % Basophils % 0 % Neutrophils # 5.3 (1.3-7.7) k/uL Lymphocytes # 1.1 (1.0-4.8) k/uL Monocytes # 0.4 (0-1.0) k/uL Eosinophils # 0.1 (0-0.7) k/uL Basophils # 0.0 (0-0.2) k/uL Hypochromasia Slight Macrocytosis Slight PT 11.2 (10.0-12.5) sec INR 1.0 (<1.2) APTT 19.5 L (22.0-30.0) sec Sodium 141 (137-145) mmol/L Potassium 4.2 (3.5-5.1) mmol/L Chloride 101 (98-107) mmol/L Carbon Dioxide 35 H (22-30) mmol/L Anion Gap 5 mmol/L BUN 58 H (7-17) mg/dL Creatinine 1.86 H (0.52-1.04) mg/dL Est GFR (CKD-EPI)AfAm 29 (>60 ml/min/1.73 sqM) Est GFR (CKD-EPI)NonAf 25 (>60 ml/min/1.73 sqM) Glucose 88 (74-99) mg/dL Plasma Lactic Acid Joe (0.7-2.0) mmol/L Calcium 8.8 (8.4-10.2) mg/dL Magnesium 2.4 H (1.6-2.3) mg/dL Total Bilirubin 0.4 (0.2-1.3) mg/dL AST 31 (14-36) U/L ALT 24 (4-34) U/L Alkaline Phosphatase 88 (38-126) U/L Troponin I (0.000-0.034) ng/mL NT-Pro-B Natriuret Pep pg/mL Total Protein 7.0 (6.3-8.2) g/dL Albumin 3.3 L (3.5-5.0) g/dL Urine Color Urine Appearance (Clear) Urine pH (5.0-8.0) Ur Specific Cable (1.001-1.035) Urine Protein (Negative) Urine Glucose (UA) (Negative) Urine Ketones (Negative) Urine Blood (Negative) Urine Nitrite (Negative) Urine Bilirubin (Negative) Urine Urobilinogen (<2.0) mg/dL Ur Leukocyte Esterase (Negative) Urine RBC (0-5) /hpf Urine WBC (0-5) /hpf Ur Squamous Epith Cells (0-4) /hpf Urine Bacteria (None) /hpf Urine Mucus (None) /hpf 03/21/23 03/21/23 03/21/23 Range/Units 20:06 20:06 21:06 WBC (3.8-10.6) k/uL RBC (3.80-5.40) m/uL Hgb (11.4-16.0) gm/dL Hct (34.0-46.0) % MCV (80.0-100.0) fL MCH (25.0-35.0) pg MCHC (31.0-37.0) g/dL RDW (11.5-15.5) % Plt Count (150-450) k/uL MPV Neutrophils % % Lymphocytes % % Monocytes % % Eosinophils % % Basophils % % Neutrophils # (1.3-7.7) k/uL Lymphocytes # (1.0-4.8) k/uL Monocytes # (0-1.0) k/uL Eosinophils # (0-0.7) k/uL Basophils # (0-0.2) k/uL Hypochromasia Macrocytosis PT (10.0-12.5) sec INR (<1.2) APTT (22.0-30.0) sec Sodium (137-145) mmol/L Potassium (3.5-5.1) mmol/L Chloride (98-107) mmol/L Carbon Dioxide (22-30) mmol/L Anion Gap mmol/L BUN (7-17) mg/dL Creatinine (0.52-1.04) mg/dL Est GFR (CKD-EPI)AfAm (>60 ml/min/1.73 sqM) Est GFR (CKD-EPI)NonAf (>60 ml/min/1.73 sqM) Glucose (74-99) mg/dL Plasma Lactic Acid Joe 1.4 (0.7-2.0) mmol/L Calcium (8.4-10.2) mg/dL Magnesium (1.6-2.3) mg/dL Total Bilirubin (0.2-1.3) mg/dL AST (14-36) U/L ALT (4-34) U/L Alkaline Phosphatase (38-126) U/L Troponin I <0.012 (0.000-0.034) ng/mL NT-Pro-B Natriuret Pep 967 pg/mL Total Protein (6.3-8.2) g/dL Albumin (3.5-5.0) g/dL Urine Color Urine Appearance (Clear) Urine pH (5.0-8.0) Ur Specific Cable (1.001-1.035) Urine Protein (Negative) Urine Glucose (UA) (Negative) Urine Ketones (Negative) Urine Blood (Negative) Urine Nitrite (Negative) Urine Bilirubin (Negative) Urine Urobilinogen (<2.0) mg/dL Ur Leukocyte Esterase (Negative) Urine RBC (0-5) /hpf Urine WBC (0-5) /hpf Ur Squamous Epith Cells (0-4) /hpf Urine Bacteria (None) /hpf Urine Mucus (None) /hpf 03/21/23 Range/Units 22:00 WBC (3.8-10.6) k/uL RBC (3.80-5.40) m/uL Hgb (11.4-16.0) gm/dL Hct (34.0-46.0) % MCV (80.0-100.0) fL MCH (25.0-35.0) pg MCHC (31.0-37.0) g/dL RDW (11.5-15.5) % Plt Count (150-450) k/uL MPV Neutrophils % % Lymphocytes % % Monocytes % % Eosinophils % % Basophils % % Neutrophils # (1.3-7.7) k/uL Lymphocytes # (1.0-4.8) k/uL Monocytes # (0-1.0) k/uL Eosinophils # (0-0.7) k/uL Basophils # (0-0.2) k/uL Hypochromasia Macrocytosis PT (10.0-12.5) sec INR (<1.2) APTT (22.0-30.0) sec Sodium (137-145) mmol/L Potassium (3.5-5.1) mmol/L Chloride (98-107) mmol/L Carbon Dioxide (22-30) mmol/L Anion Gap mmol/L BUN (7-17) mg/dL Creatinine (0.52-1.04) mg/dL Est GFR (CKD-EPI)AfAm (>60 ml/min/1.73 sqM) Est GFR (CKD-EPI)NonAf (>60 ml/min/1.73 sqM) Glucose (74-99) mg/dL Plasma Lactic Acid Joe (0.7-2.0) mmol/L Calcium (8.4-10.2) mg/dL Magnesium (1.6-2.3) mg/dL Total Bilirubin (0.2-1.3) mg/dL AST (14-36) U/L ALT (4-34) U/L Alkaline Phosphatase (38-126) U/L Troponin I (0.000-0.034) ng/mL NT-Pro-B Natriuret Pep pg/mL Total Protein (6.3-8.2) g/dL Albumin (3.5-5.0) g/dL Urine Color Light Yellow Urine Appearance Clear (Clear) Urine pH 5.0 (5.0-8.0) Ur Specific Cable 1.020 (1.001-1.035) Urine Protein Trace H (Negative) Urine Glucose (UA) Negative (Negative) Urine Ketones Negative (Negative) Urine Blood Negative (Negative) Urine Nitrite Negative (Negative) Urine Bilirubin Negative (Negative) Urine Urobilinogen <2.0 (<2.0) mg/dL Ur Leukocyte Esterase Large H (Negative) Urine RBC 3 (0-5) /hpf Urine WBC 28 H (0-5) /hpf Ur Squamous Epith Cells 4 (0-4) /hpf Urine Bacteria Rare H (None) /hpf Urine Mucus Rare H (None) /hpf Disposition Clinical Impression: Syncope, Anemia Disposition: ADMITTED IP TO THIS HOSP Condition: Stable Is patient prescribed a controlled substance at d/c from ED?: No
--- NOTE | 2023-03-21 20:03 | XR ---
EXAMINATION TYPE: XR knee complete LT DATE OF EXAM: 03/21/2023 COMPARISON: None HISTORY: 78-year-old female with pain after multiple falls TECHNIQUE: 3 views FINDINGS: Generalized subcutaneous soft tissue swelling is present. There is moderate to severe loss of cartila ge and joint space in the medial compartment with tricompartmental degenerative spurring. Small knee joint effusion is present. Extensor mechanism intact. No acute fracture, subluxation, or dislocation seen. IMPRESSION: 1. Generalized subcutaneous soft tissue swelling. Correlate for soft tissue contusion, venous stasis, or other nonspecific lower extremity edema. 2. Small knee joint effusion may be reactive to the underlying osteoarthritis or reactive to the ana ent's injury. No acute osseous abnormality seen. 3. Tricompartmental osteoarthrosis, moderate to severe in the medial compartment.
[2023-03-21 20:23] LABS: Basophils % (A) 0 %; Eosinophils # (A) 0.1 k/uL (0-0.7); Eosinophils % (A) 1 %; HCT 24.5 % (34.0-46.0); HGB 8.1 gm/dL (11.4-16.0); Hypochromasia Slight; Lymphocytes # (A) 1.1 k/uL (1.0-4.8); Lymphocytes % (A) 16 %; MCH 32.9 pg (25.0-35.0); MCHC 32.9 g/dL (31.0-37.0); MCV 99.8 fL (80.0-100.0); Macrocytosis Slight; Mean Platelet Volume 9.6; Monocytes # (A) 0.4 k/uL (0-1.0); Monocytes % (A) 6 %; Neutrophils # (A) 5.3 k/uL (1.3-7.7); Neutrophils % (A) 76 %; Platelet Count 103 k/uL (150-450); RBC 2.46 m/uL (3.80-5.40); RDW 14.9 % (11.5-15.5); WBC 6.9 k/uL (3.8-10.6)
--- NOTE | 2023-03-21 20:24 | CT ---
EXAMINATION TYPE: CT brain cspine wo con CT DLP: 1835 mGycm, Automated exposure control for dose reduction was used. DATE OF EXAM: 03/21/2023 6:50 PM COMPARISON: None. CLINICAL INDICATION:Female, 78 years old with history of fall; fall TECHNIQUE: Brain: Multiple axial CT images of the brain were obtained without IV contrast. Cspine: Axial CT images from the skull base to the inferior aspect of T2 we obtained without intraven ous contrast. Coronal and sagittal reformatted images were also reviewed. FINDINGS: Brain: Extra-axial spaces: No abnormal extra-axial fluid collections. Ventricular system: Dilatation in proportion to degree of cerebral atrophy. Cerebral parenchyma: No acute intraparenchymal hemorrhage or mass effect. Mild/moderate generalized brain atrophy. No loss of graham-white matter distinction to suggest acute infarct. There are mild patc hy hypoattenuating areas seen throughout the cerebral white matter, nonspecific but usually seen with chronic microvascular ischemia. Cerebellum: No acute abnormality. Mass effect: No evidence of midline shift. Intracranial vasculature: Mild calcification of the carotid siphons. Soft tissues: Unremarkable. Calvarium/osseous structures: No acute calvarial fracture seen. Paranasal sinuses and mastoid air cells: No fluid accumulation. Mild mucosal thickening maxillary sin uses. Visualized orbits: Orbital contents appear grossly intact. MRI is more sensitive for detecting acute processes such as infarct, and may be considered if clinica lly warranted. Cervical spine: Fracture: None. Osseous structures, spinal canal/neural foramina: Mild/moderate multilevel degenerative disc disease and facet arthrosis, greatest in the mid cervical spine. There is associated mild to moderate spinal canal and neural foraminal stenoses at each level from C3 to C7. Vertebral alignment: Within normal limits. Neck soft tissues: Prevertebral soft tissues are within normal limits. No other significant findings. Other: Mild degenerative change of the left TMJ. Patient appears dentulous, with a couple of partiall y visualized metallic screw/anchors in the anterior mandible partially seen. Lung apices show no acut e infiltrate or pneumothorax. Mild biapical emphysema. IMPRESSION: CT head: No acute intracranial abnormality. Mild atrophy and chronic microvascular ischemic changes. CT cervical spine: No evidence of cervical spine fracture or traumatic malalignment . Mild/moderate cervical spondylosis.
--- NOTE | 2023-03-21 20:45 | XR ---
EXAMINATION TYPE: XR chest 2V DATE OF EXAM: 03/21/2023 7:07 PM CLINICAL INDICATION:Female, 78 years old with history of Weakness; PH[facility] COMPARISON: None TECHNIQUE: XR chest 2V Frontal and lateral views of the chest. FINDINGS: Exam is limited by patient body habitus. Lines/Tubes: No indwelling lines are seen. Lungs/Pleura: There is no evidence of pleural effusion, focal consolidation, or pneumothorax. Pulmonary vascularity: Mild pulmonary vascular congestion. Diffusely increased interstitial markings can be seen with edema or infiltrates. Heart/mediastinum: Mildly to moderately enlarged cardiac silhouette suggesting cardiomegaly. Partiall y calcified mildly tortuous aorta. Musculoskeletal: No acute osseous pathology. Mild/moderate diffuse degenerative changes. Other findings: None IMPRESSION: Cardiomegaly with mild central vascular congestion and diffuse interstitial prominence suggesting shanel ma. Correlate for mild CHF.
[2023-03-21 20:53] LABS: ALT 24 U/L (4-34); AST 31 U/L (14-36); African American GFR (CKD) 29 (>60 ml/min/1.73 sqM); Albumin 3.3 g/dL (3.5-5.0); Alkaline Phosphatase 88 U/L (38-126); Anion Gap 5 mmol/L; Blood Urea Nitrogen 58 mg/dL (7-17); Calcium 8.8 mg/dL (8.4-10.2); Carbon Dioxide 35 mmol/L (22-30); Chloride 101 mmol/L (98-107); Glucose 88 mg/dL (74-99); Magnesium 2.4 mg/dL (1.6-2.3); Non-African American GFR(CKD) 25 (>60 ml/min/1.73 sqM); Potassium 4.2 mmol/L (3.5-5.1); Sodium 141 mmol/L (137-145); Total Bilirubin 0.4 mg/dL (0.2-1.3)
[2023-03-21 20:56] LABS: Prothrombin Time 11.2 sec (10.0-12.5)
[2023-03-21 21:00] LABS: Partial Thromboplastin Time 19.5 sec (22.0-30.0)
[2023-03-21] MEDS ORDERED: SODIUM CHLORIDE 0.9% 500 ML 500 ML IV ONE (23:01)
[2023-03-21 23:05] LABS: Appearance,Urine Clear (Clear); Bacteria,Urine Rare /hpf; Bilirubin,Urine Negative (Negative); Blood,Urine Negative (Negative); Color,Urine Light Yellow; Glucose,Urine (UA) Negative (Negative); Ketones,Urine Negative (Negative); Leukocyte Esterase,Urine Large (Negative); Mucus,Urine Rare /hpf; Nitrite,Urine Negative (Negative); Protein,Urine Trace (Negative); RBC,Urine 3 /hpf (0-5); Squamous Epithelial Cell,Urine 4 /hpf (0-4); Urobilinogen,Urine <2.0 mg/dL (<2.0); WBC,Urine 28 /hpf (0-5)
[2023-03-21] MEDS ORDERED: MORPHINE SULFATE 4 MG/ML SYRINGE IV PRN (23:31)
[2023-03-21] MEDS ORDERED: ACETAMINOPHEN TAB 325 MG TAB PO PRN (23:31)
[2023-03-21] MEDS ORDERED: NALOXONE 0.4 MG/ML 1 ML VIAL IV PRN (23:31)
[2023-03-22] MEDS ORDERED: DEXTROSE 50% SYRINGE 50 ML IVP PRN ×2 (00:25)
[2023-03-22 06:13] LABS: Glucose,Whole Blood 114 mg/dL (70-110)
[2023-03-22] MEDS: INSULIN ASPART (NovoLOG) 100 UNIT/ML VIAL SQ SCH ×4 (06:24→22:18)
[2023-03-22] MEDS: amLODIPine 5 MG TAB PO SCH (09:12)
[2023-03-22] MEDS: LOSARTAN 25 MG TAB PO SCH (09:12)
[2023-03-22 09:47] LABS: Basophils % (A) 0 %; Eosinophils # (A) 0.1 k/uL (0-0.7); Eosinophils % (A) 2 %; HCT 24.2 % (34.0-46.0); HGB 7.5 gm/dL (11.4-16.0); Hypochromasia Moderate; Lymphocytes # (A) 1.2 k/uL (1.0-4.8); Lymphocytes % (A) 19 %; MCHC 31.1 g/dL (31.0-37.0); MCV 102.9 fL (80.0-100.0); Macrocytosis Slight; Mean Platelet Volume 9.5; Monocytes # (A) 0.3 k/uL (0-1.0); Monocytes % (A) 4 %; Neutrophils # (A) 4.4 k/uL (1.3-7.7); Neutrophils % (A) 72 %; RBC 2.35 m/uL (3.80-5.40); WBC 6.2 k/uL (3.8-10.6)
[2023-03-22 10:26] LABS: Platelet Count 99 k/uL (150-450)
[2023-03-22 11:54] LABS: Glucose,Whole Blood 255 mg/dL (70-110)
[2023-03-22] MEDS ORDERED: metFORMIN 500 MG TAB PO SCH (12:15)
--- NOTE | 2023-03-22 12:24 | CA ---
Transthoracic Echo Report Name: Kamini Nance Age: 78 Gender: F : 1945 Exam Date: 03/22/2023 08:44 Exam Location: [facility] Ht (in): 70 Wt (lb): 378 Ordering Physician: Davide Ojeda Attending/Referring Phys: Zinc Chloride Operator Mecca Thomas [facility] Procedure CPT: Indications: Syncope Cardiac Hx: Technical Quality: Contrast 1: Total Dose (mL): Contrast 2: Total Dose (mL): MEASUREMENTS (Male / Female) Normal Values 2D ECHO LV Diastolic Diameter PLAX 5.0 cm 4.2 - 5.9 / 3.9 - 5.3 cm LV Systolic Diameter PLAX 3.7 cm IVS Diastolic Thickness 1.0 cm 0.6 - 1.0 / 0.6 - 0.9 cm LVPW Diastolic Thickness 1.0 cm 0.6 - 1.0 / 0.6 - 0.9 cm LV Relative Wall Thickness 0.4 DOPPLER AV Peak Velocity 178.0 cm/s AV Peak Gradient 12.7 mmHg AV Mean Velocity 126.6 cm/s AV Mean Gradient 7.3 mmHg AV Velocity Time Integral 43.2 cm LVOT Peak Velocity 130.2 cm/s LVOT Peak Gradient 6.8 mmHg LVOT Velocity Time Integral 35.1 cm MV Peak Velocity 142.2 cm/s MV Peak Gradient 8.1 mmHg MV Mean Velocity 92.8 cm/s MV Mean Gradient 3.7 mmHg MV Velocity Time Integral 51.4 cm Mitral E Point Velocity 102.1 cm/s Mitral A Point Velocity 100.5 cm/s Mitral E to A Ratio 1.0 MV Deceleration Time 304.2 ms LV E' Lateral Velocity 10.2 cm/s Mitral E to LV E' Lateral Ratio 10.0 LV E' Septal Velocity 8.4 cm/s Mitral E to LV E' Septal Ratio 12.1 TR Peak Velocity 235.4 cm/s TR Peak Gradient 22.2 mmHg Right Atrial Pressure 15.0 mmHg Pulmonary Artery Systolic Pressu 37.2 mmHg Right Ventricular Systolic Press 37.2 mmHg FINDINGS Left Ventricle Mildly increased left ventricular wall thickness. Left ventricular cavity size at the upper limits of normal. Normal left ventricular systolic function with no obvious regional wall motion abnormalities. Left ventricular ejection fraction is estimated at 55-60%. Right Ventricle Severe right ventricular dilatation. Mild pulmonary hypertension. Right Atrium Severe right atrial dilatation. Left Atrium Moderate left atrial dilatation. Mitral Valve Mild thickening/calcification of the posterior mitral valve leaflet. Mild mitral regurgitation. Aortic Valve Trileaflet aortic valve. Aortic valve sclerosis. No aortic regurgitation. Tricuspid Valve Structurally normal tricuspid valve. Mild tricuspid regurgitation. Pulmonic Valve Pulmonic valve not well visualized. Pericardium Minimal pericardial effusion (normal variant). Aorta Aortic root and proximal ascending aorta not well visualized. CONCLUSIONS Normal LV systolic function Right ventricular enlargement Biatrial enlargement Previewed by: Dr. Binu Zelaya MD (Electronically Signed) Final Date: 22 March 2023 12:23
[2023-03-22] MEDS: MULTIVITAMINS, THERA 1 EACH TAB PO SCH (13:05)
[2023-03-22] MEDS: PREGABALIN 75 MG CAP PO SCH ×2 (13:06→21:18)
[2023-03-22 13:19] LABS: Basophils % (A) 0 %; Eosinophils # (A) 0.1 k/uL (0-0.7); Eosinophils % (A) 2 %; HCT 23.7 % (34.0-46.0); HGB 7.7 gm/dL (11.4-16.0); Hypochromasia Moderate; Lymphocytes % (A) 17 %; MCH 33.4 pg (25.0-35.0); MCHC 32.4 g/dL (31.0-37.0); MCV 103.1 fL (80.0-100.0); Macrocytosis Slight; Mean Platelet Volume 10.7; Monocytes # (A) 0.3 k/uL (0-1.0); Monocytes % (A) 5 %; Neutrophils # (A) 4.3 k/uL (1.3-7.7); Neutrophils % (A) 74 %; WBC 5.8 k/uL (3.8-10.6)
[2023-03-22 13:28] LABS: Platelet Count 87 k/uL (150-450)
--- NOTE | 2023-03-22 13:39 | P.CRDCN ---
History of Present Illness Consult date: 03/22/23 Consult reason: sycope History of present illness: This is Davide Ojeda NP, I'm dictating on behalf of Dr. Zelaya's H&P and A&P The patient was interviewed and examined. HPI: Patient is a pleasant 78-year-old female with a past medical history significant for melanoma, type 2 diabetes, fatty liver, colon cancer, kidney stones, bilateral hands of feet neuropathy, bilateral lower extremity edema, hyperlipidemia, hypertension, and sleep apnea who presented to the hospital for complaints of syncope. Patient reports that she fell at home and states that she "blacked out". Patient reports that she actually fell twice yesterday, stating that she deftly blacked out the first time, but the second time she fell over due to feeling very weak. Patient does appreciate falling at home multiple times over this past year. Patient states she has a history of vertigo, and often will fall forwards or backwards without the ability to stop herself. Due to these episodes she presented to the hospital for evaluation. Patient does report that she did fall and hit her head yesterday, so a CT of the head was completed which was negative for any obvious acute intracranial abnormality. EKG showed sinus bradycardia with a short pause. Lab work did show an elevation in the BUN/creatinine. Due to the patient's syncope, she was subsequently a dmitted with cardiology consult. This morning the patient reports that she feels okay. She is denying heart palpitations and chest pain at this time. It is noted the patient has an occult positive stool for blood. ROS: [No fever, chills, or rigors] [no cough, phlegm, or expectoration] [no nausea, vomiting, or diarrhea] [no hematuria, dysuria] [no musculoskelatal complaints] [no strokes or seizures] [no skin lesions] EXAMINATION: GENERAL: Well-appearing, well-nourished and in no acute distress. NECK: Supple without JVD or thyromegaly. LUNGS: Breath sounds are mostly clear with scattered crackles. Respiration equal and unlabored. No wheezes, rales or rhonchi. HEART: Regular rate and rhythm without murmurs, rubs or gallops. S1 and S2 heard. EXTREMITIES: Normal range of motion, no edema. No clubbing or cyanosis. Peripheral pulses intact and strong. REVIEW OF LABS, ECG & MEDICAL DATA: LABS: White count 5.8, hemoglobin 7.7, platelets 87, sodium 141, potassium 4.2, BUN 58, creatinine 1.86, magnesium 2.4, troponin less than 0.012, BNP 967 EKG: Sinus bradycardia with short pause IMAGING: X-ray of the left knee dated 03/21/2023 demonstrates generalized subcutaneous soft tissue swelling, correlate for soft tissue contusion, venous stasis, or other nonspecific lower extremity edema, small knee joint effusion may be reactive to the underlying osteoarthritis are reactive to the patient's injury, no acute osseous abnormalities seen, tricompartmental osteoarthrosis, moderate to severe in the medial compartment. Computed tomography scan of the brain dated 03/21/2023 demonstrates no acute intracranial abnormality, mild atrophy and chronic microvascular ischemic changes, cervical spine CT done at the same time shows no evidence of cervical spine fracture traumatic malalignm ent, mild/moderate cervical spondylosis. Chest x-ray dated 03/21/2023 findings cardiomegaly with mild central vascular congestion and diffuse interstitial prominence suggesting edema, correlate for mild CHF. Echocardiogram dated 03/22/2023 demonstrates normal LV systolic function, right ventricular enlargement, biatrial enlargement. VITALS: Temp 98.6, pulse 58, respirations 12, blood pressure 120/54, O2 saturation 96% on room air IMPRESSION: 1. Syncope 2. Chronic kidney disease 3. Occult blood stool positive 4. Vertigo 5. Right ventricular and biatrial enlargement on echo PLAN: Obtain orthostatic vital signs. Start amlodipine 5 mg daily. Discontinue Bystolic. Recommend GI workup for the Hemoccult-positive stool. Further recommendations based on patient's clinical course. Thank you for the consult and allowing us to participate in the care of this patient. Past Medical History Past Medical History: Cancer, COPD, Diabetes Mellitus, Hyperlipidemia, Hypertension, Liver Disease, Osteoarthritis (OA), Sleep Apnea/CPAP/BIPAP Additional Past Medical History / Comment(s): hx melanoma, IDDM type II, "fatty liver", colon CANCER with surgery and chemo, KIDNEY STONE, neuropathy bilateral hands and feet. Arthritis in thumbs. bilateral lower leg edema, no machine for sleep apnea. History of Any Multi-Drug Resistant Organisms: None Reported Past Surgical History: Bowel Resection, Breast Surgery, Orthopedic Surgery Additional Past Surgical History / Comment(s): 03/08/16 repair incarcerated hernia with mesh and removal of port a cath. Other surgical hx: D&C, left foot surgery, PORT A CATHETER, DENTAL IMPLANTS. 18 inches of bowel removed for Cancer. arthroscopic rt knee to remove torn meniscus. bilateral cataracts removed, right breast lumpectomy Past Anesthesia/Blood Transfusion Reactions: Previous Problems w/ Anesthesia Additional Past Anesthesia/Blood Transfusion Reaction / Comment(s): "came out fighting, difficult coming out" hard to wake up. Past Psychological History: Depression Smoking Status: Former smoker Past Alcohol Use History: None Reported Past Drug Use History: None Reported - Past Family History Brother(s) Family Medical History: Cancer Additional Family Medical History / Comment(s): leukemia 2 types Medications and Allergies Home Medications Medication Instructions Recorded Confirmed Type Simvastatin [Zocor] 40 mg PO HS 04/08/14 03/22/23 History buPROPion XL [Wellbutrin XL] 150 mg PO DAILY 04/08/14 03/22/23 History hydroCHLOROthiazide [Hydrodiuril] 25 mg PO DAILY 04/08/14 03/22/23 History Albuterol Inhaler [Ventolin Hfa 2 puff INHALATION RT-QID PRN #1 02/08/15 03/22/23 Rx Inhaler] puff Insulin Glargine,Hum.rec.anlog 68 unit SQ HS 03/07/16 03/22/23 History [Lantus Solostar] Pregabalin [Lyrica] 75 mg PO BID 03/07/16 03/22/23 History metFORMIN HCL [Glucophage] 500 mg PO DAILY 03/07/16 03/22/23 History Multivit-Min/Iron/Folic/Lutein 1 tab PO DAILY 06/28/16 03/22/23 History [Centrum Silver Women Tablet] Dulaglutide [Trulicity] 4.5 mg SQ WE 03/22/23 03/22/23 History Letrozole [Femara] 2.5 mg PO DAILY 03/22/23 03/22/23 History Losartan Potassium 100 mg PO DAILY 03/22/23 03/22/23 History Magnesium Oxide [Mag-Ox] 250 mg PO HS 03/22/23 03/22/23 History Ubidecarenone [Coenzyme Q10] 200 mg PO DAILY 03/22/23 03/22/23 History Allergies Allergy/AdvReac Type Severity Reaction Status Date / Time bee pollen Allergy Severe Anaphylaxis Verified 03/22/23 11:49 adhesive Allergy Unknown Verified 03/22/23 11:49 hydromorphone [From Dilaudid] Allergy Hallucinati Verified 03/22/23 11:49 ons Penicillins Allergy Rash/Hives Verified 03/22/23 11:49 Physical Exam Vitals: Vital Signs Temp Pulse Pulse Resp BP BP Pulse Ox 03/22/23 07:00 98.6 F 58 L 12 128/54 96 03/22/23 02:00 20 03/22/23 01:47 98.9 F 69 15 107/56 92 L 03/22/23 00:46 75 18 111/74 95 03/21/23 22:58 71 20 116/53 94 L 03/21/23 20:00 69 20 122/68 95 03/21/23 17:24 98 F 66 18 127/92 97 Intake and Output 03/21/23 03/22/23 03/22/23 22:59 06:59 14:59 Intake Total 240 Balance 240 Intake: Oral 240 Other: Voiding Method External Catheter # Voids 2 Weight 171.458 kg 171.458 kg Results 03/22/23 13:00 03/21/23 20:06 Cardiac Enzymes 03/21/23 03/21/23 Range/Units 20:06 20:06 AST 31 (14-36) U/L Troponin I <0.012 (0.000-0.034) ng/mL Coagulation 03/21/23 Range/Units 20:06 PT 11.2 (10.0-12.5) sec APTT 19.5 L (22.0-30.0) sec CBC 03/21/23 03/22/23 03/22/23 Range/Units 20:06 09:26 13:00 WBC 6.9 6.2 5.8 (3.8-10.6) k/uL RBC 2.46 L 2.35 L 2.30 L (3.80-5.40) m/uL Hgb 8.1 L 7.5 L 7.7 L (11.4-16.0) gm/dL Hct 24.5 L 24.2 L 23.7 L (34.0-46.0) % Plt Count 103 L 99 L 87 L (150-450) k/uL Comprehensive Metabolic Panel 03/21/23 Range/Units 20:06 Sodium 141 (137-145) mmol/L Potassium 4.2 (3.5-5.1) mmol/L Chloride 101 (98-107) mmol/L Carbon Dioxide 35 H (22-30) mmol/L BUN 58 H (7-17) mg/dL Creatinine 1.86 H (0.52-1.04) mg/dL Glucose 88 (74-99) mg/dL Calcium 8.8 (8.4-10.2) mg/dL AST 31 (14-36) U/L ALT 24 (4-34) U/L Alkaline Phosphatase 88 (38-126) U/L Total Protein 7.0 (6.3-8.2) g/dL Albumin 3.3 L (3.5-5.0) g/dL Current Medications Generic Name Dose Route Start Last Admin Trade Name Freq PRN Reason Stop Dose Admin Acetaminophen 650 mg 03/21/23 23:31 Acetaminophen Tab 325 Mg Tab PO Q6HR PRN Mild Pain or Fever > 100.5 Albuterol Sulfate 2.5 mg 03/22/23 12:15 Albuterol Nebulized 2.5 Mg/3 Ml INHALATION RT-QID PRN Shortness Of Breath Or Wheezing Amlodipine Besylate 5 mg 03/22/23 09:00 03/22/23 09:12 Amlodipine 5 Mg Tab PO 5 mg DAILY ASHLEY Administration Atorvastatin Calcium 20 mg 03/22/23 21:00 Atorvastatin 20 Mg Tab PO HS ASHLEY Bupropion HCl 150 mg 03/22/23 12:15 Bupropion Xl 150 Mg Tab.Er.24h PO DAILY [facility] Dextrose/Water 25 ml 03/22/23 00:25 Dextrose 50% Syringe 50 Ml IVP PER PROTOCOL PRN Hypoglycemia Protocol Dextrose/Water 50 ml 03/22/23 00:25 Dextrose 50% Syringe 50 Ml IVP PER PROTOCOL PRN Hypoglycemia Protocol Insulin Aspart 0 unit 03/22/23 07:30 03/22/23 13:06 Insulin Aspart (Novolog) 100 Unit/Ml Vial SQ 6 unit ACHS ASHLEY Administration Protocol Insulin Detemir 68 unit 03/22/23 21:00 Insulin Detemir (Levemir) 100 Unit/Ml Syr SQ HS [facility] Letrozole 2.5 mg 03/22/23 12:15 Letrozole 2.5 Mg Tab PO DAILY ASHLEY Losartan Potassium 25 mg 03/22/23 09:00 03/22/23 09:12 Losartan 25 Mg Tab PO 25 mg DAILY ASHLEY Administration Magnesium Oxide 400 mg 03/22/23 21:00 Magnesium Oxide 400 Mg Tab PO HS ASHLEY Metformin HCl 500 mg 03/22/23 12:15 03/22/23 13:06 Metformin 500 Mg Tab PO 500 mg DAILY ASHLEY Administration Morphine Sulfate 4 mg 03/21/23 23:31 Morphine Sulfate 4 Mg/Ml Syringe IV Q4HR PRN Severe Pain (Scale 7 to 10) Multivitamins 1 each 03/22/23 12:15 03/22/23 13:05 Multivitamins, Thera 1 Each Tab PO 1 each DAILY ASHLEY Administration Naloxone HCl 0.2 mg 03/21/23 23:31 Naloxone 0.4 Mg/Ml 1 Ml Vial IV Q2M PRN Opioid Reversal Non-Formulary Medication 4.5 mg 03/26/23 09:00 Dulaglutide [Trulicity] SQ WE [facility] Non-Formulary Medication 200 mg 03/23/23 09:00 Ubidecarenone [Coenzyme Q10] PO DAILY ASHLEY Pregabalin 75 mg 03/22/23 12:30 03/22/23 13:06 Pregabalin 75 Mg Cap PO 75 mg BID ASHLEY Administration Intake and Output 03/21/23 03/22/23 03/22/23 22:59 06:59 14:59 Intake Total 240 Balance 240 Intake: Oral 240 Other: Voiding Method External Catheter # Voids 2 Weight 171.458 kg 171.458 kg 03/22/23 13:00 03/21/23 20:06
[2023-03-22] MEDS ORDERED: ALBUTEROL NEBULIZED 2.5 MG/3 ML INHALATION PRN (13:47)
--- NOTE | 2023-03-22 13:50 | P.HPIM ---
History of Present Illness H&P Date: 03/22/23 Chief Complaint: GI bleed, syncope (78-year-old morbidly obese female well-known to me. She has type 2 diabetes. She reports yesterday while in the bathroom she was straining use the toilet and had a cecal episode findings on the shower. She is assistance from EMS to get u p. She reports later on that day she fell forward. She did not lose consciousness. When she was lightheaded. She denies any chest pains pressures or shortness of breath this time. No nausea or vomiting. The emergency room she was found to have hemoglobin 8.1. This is unusual for her. Hemoccult on the floor was positive. Repeat H&H are 7.5 and 7.7. She does mention some black stools recently. Blood pressure currently is normal. Pulse oximetry is normal S1 as his heart rate rest or in temperature. Review of Systems All systems: negative Past Medical History Past Medical History: Cancer, COPD, Diabetes Mellitus, Hyperlipidemia, Hypertension, Liver Disease, Osteoarthritis (OA), Sleep Apnea/CPAP/BIPAP Additional Past Medical History / Comment(s): hx melanoma, IDDM type II, "fatty liver", colon CANCER with surgery and chemo, KIDNEY STONE, neuropathy bilateral hands and feet. Arthritis in thumbs. bilateral lower leg edema, no machine for sleep apnea. History of Any Multi-Drug Resistant Organisms: None Reported Past Surgical History: Bowel Resection, Breast Surgery, Orthopedic Surgery Additional Past Surgical History / Comment(s): 03/08/16 repair incarcerated hernia with mesh and removal of port a cath. Other surgical hx: D&C, left foot surgery, PORT A CATHETER, DENTAL IMPLANTS. 18 inches of bowel removed for Cancer. arthroscopic rt knee to remove torn meniscus. bilateral cataracts remov ed, right breast lumpectomy Past Anesthesia/Blood Transfusion Reactions: Previous Problems w/ Anesthesia Additional Past Anesthesia/Blood Transfusion Reaction / Comment(s): "came out fighting, difficult coming out" hard to wake up. Past Psychological History: Depression Smoking Status: Former smoker Past Alcohol Use History: None Reported Past Drug Use History: None Reported - Past Family History Brother(s) Family Medical History: Cancer Additional Family Medical History / Comment(s): leukemia 2 types Medications and Allergies Home Medications Medication Instructions Recorded Confirmed Type Simvastatin [Zocor] 40 mg PO HS 04/08/14 03/22/23 History buPROPion XL [Wellbutrin XL] 150 mg PO DAILY 04/08/14 03/22/23 History hydroCHLOROthiazide [Hydrodiuril] 25 mg PO DAILY 04/08/14 03/22/23 History Albuterol Inhaler [Ventolin Hfa 2 puff INHALATION RT-QID PRN #1 02/08/15 03/22/23 Rx Inhaler] puff Insulin Glargine,Hum.rec.anlog 68 unit SQ HS 03/07/16 03/22/23 History [Lantus Solostar] Pregabalin [Lyrica] 75 mg PO BID 03/07/16 03/22/23 History metFORMIN HCL [Glucophage] 500 mg PO DAILY 03/07/16 03/22/23 History Multivit-Min/Iron/Folic/Lutein 1 tab PO DAILY 06/28/16 03/22/23 History [Centrum Silver Women Tablet] Dulaglutide [Trulicity] 4.5 mg SQ WE 03/22/23 03/22/23 History Letrozole [Femara] 2.5 mg PO DAILY 03/22/23 03/22/23 History Losartan Potassium 100 mg PO DAILY 03/22/23 03/22/23 History Magnesium Oxide [Mag-Ox] 250 mg PO HS 03/22/23 03/22/23 History Ubidecarenone [Coenzyme Q10] 200 mg PO DAILY 03/22/23 03/22/23 History Allergies Allergy/AdvReac Type Severity Reaction Status Date / Time bee pollen Allergy Severe Anaphylaxis Verified 03/22/23 11:49 adhesive Allergy Unknown Verified 03/22/23 11:49 hydromorphone [From Dilaudid] Allergy Hallucinati Verified 03/22/23 11:49 ons Penicillins Allergy Rash/Hives Verified 03/22/23 11:49 Physical Exam Vitals: Vital Signs Temp Pulse Pulse Resp BP BP Pulse Ox 03/22/23 07:00 98.6 F 58 L 12 128/54 96 03/22/23 02:00 20 03/22/23 01:47 98.9 F 69 15 107/56 92 L 03/22/23 00:46 75 18 111/74 95 03/21/23 22:58 71 20 116/53 94 L 03/21/23 20:00 69 20 122/68 95 03/21/23 17:24 98 F 66 18 127/92 97 Intake and Output 03/21/23 03/22/23 03/22/23 22:59 06:59 14:59 Intake Total 240 Balance 240 Intake: Oral 240 Other: Voiding Method External Catheter # Voids 2 Weight 171.458 kg 171.458 kg GENERAL: Elderly obese female, slightly anxious HEAD: Atraumatic, normocephalic. EYES: Pupils equal round and reactive to light, extraocular movements intact, sclera anicteric, conjunctiva are normal. ENT:nares patent, oropharynx clear without exudates. Moist mucous membranes. NECK: Normal range of motion, supple without lymphadenopathy or JVD, no thyromegaly LUNGS: Breath sounds slightly coarse to auscultation bilaterally and equal. No wheezes rales or rhonchi. HEART: Regular rate and rhythm without murmurs, rubs or gallops.S1S2 Normal ABDOMEN: Soft, nontender, normoactive bowel sounds. No guarding, no rebound. No masses appreciated. Distended due to truncal obesity EXTREMITIES: Normal range of motion, no pitting. No clubbing or cyanosis. +2 edema with some hyperkeratinization NEUROLOGICAL: Cranial nerves II through XII grossly intact. Normal speech, normal gait. PSYCH: Normal mood, normal affect. SKIN: Warm, Dry, normal turgor, no rashes or lesions noted. Results CBC & Chem 7: 03/22/23 13:00 03/21/23 20:06 Labs: Abnormal Lab Results - Last 24 Hours (Table) 03/21/23 03/21/23 03/21/23 Range/Units 20:06 20:06 20:06 RBC 2.46 L (3.80-5.40) m/uL Hgb 8.1 L (11.4-16.0) gm/dL Hct 24.5 L (34.0-46.0) % MCV (80.0-100.0) fL Plt Count 103 L (150-450) k/uL APTT 19.5 L (22.0-30.0) sec Carbon Dioxide 35 H (22-30) mmol/L BUN 58 H (7-17) mg/dL Creatinine 1.86 H (0.52-1.04) mg/dL POC Glucose (mg/dL) (70-110) mg/dL Magnesium 2.4 H (1.6-2.3) mg/dL Albumin 3.3 L (3.5-5.0) g/dL Urine Protein (Negative) Ur Leukocyte Esterase (Negative) Urine WBC (0-5) /hpf Urine Bacteria (None) /hpf Urine Mucus (None) /hpf Stool Occult Blood (Negative) 03/21/23 03/22/23 03/22/23 Range/Units 22:00 00:38 06:11 RBC (3.80-5.40) m/uL Hgb (11.4-16.0) gm/dL Hct (34.0-46.0) % MCV (80.0-100.0) fL Plt Count (150-450) k/uL APTT (22.0-30.0) sec Carbon Dioxide (22-30) mmol/L BUN (7-17) mg/dL Creatinine (0.52-1.04) mg/dL POC Glucose (mg/dL) 114 H (70-110) mg/dL Magnesium (1.6-2.3) mg/dL Albumin (3.5-5.0) g/dL Urine Protein Trace H (Negative) Ur Leukocyte Esterase Large H (Negative) Urine WBC 28 H (0-5) /hpf Urine Bacteria Rare H (None) /hpf Urine Mucus Rare H (None) /hpf Stool Occult Blood Positive H (Negative) 03/22/23 03/22/23 03/22/23 Range/Units 09:26 11:52 13:00 RBC 2.35 L 2.30 L (3.80-5.40) m/uL Hgb 7.5 L 7.7 L (11.4-16.0) gm/dL Hct 24.2 L 23.7 L (34.0-46.0) % MCV 102.9 H 103.1 H (80.0-100.0) fL Plt Count 99 L 87 L (150-450) k/uL APTT (22.0-30.0) sec Carbon Dioxide (22-30) mmol/L BUN (7-17) mg/dL Creatinine (0.52-1.04) mg/dL POC Glucose (mg/dL) 255 H (70-110) mg/dL Magnesium (1.6-2.3) mg/dL Albumin (3.5-5.0) g/dL Urine Protein (Negative) Ur Leukocyte Esterase (Negative) Urine WBC (0-5) /hpf Urine Bacteria (None) /hpf Urine Mucus (None) /hpf Stool Occult Blood (Negative) Chest x-ray: report reviewed CT Scan - head: report reviewed Thrombosis Risk Factor Assmnt - DVT/VTE Prophylaxis DVT/VTE Prophylaxis: Contraindicated - See note (Possible GI bleed) - Choose All That Apply Any of the Below Risk Factors Present?: Yes Each Factor Represents 1 point: Abnormal pulmonary function (COPD), Obesity (BMI >25), Swollen legs (current) Each Risk Factor Represents 3 Points: Age 75 years or older Other congenital or acquired thrombophilia - If yes, enter type in comment: No Thrombosis Risk Factor Assessment Total Risk Factor Score: 6 Thrombosis Risk Factor Assessment Level: High Risk Assessment and Plan (1) GI bleeding Current Visit: Yes Status: Acute Code(s): K92.2 - GASTROINTESTINAL HEMORRHAGE, UNSPECIFIED SNOMED Code(s): 29809734 (2) Syncope Current Visit: Yes Status: Acute Code(s): R55 - SYNCOPE AND COLLAPSE SNOMED Code(s): 249883112 (3) Anemia in chronic illness Current Visit: Yes Status: Acute Code(s): D63.8 - ANEMIA IN OTHER CHRONIC DISEASES CLASSIFIED ELSEWHERE SNOMED Code(s): 153164873 (4) CKD (chronic kidney disease) stage 4, GFR 15-29 ml/min Current Visit: Yes Status: Acute Code(s): N18.4 - CHRONIC KIDNEY DISEASE, ST AGE 4 (SEVERE) SNOMED Code(s): 851387031 (5) Type 2 diabetes mellitus with other circulatory complications Current Visit: Yes Status: Acute Code(s): E11.59 - TYPE 2 DIABETES MELLITUS WITH OTH CIRCULATORY COMPLICATIONS SNOMED Code(s): 94038665 (6) Type 2 diabetes mellitus with other specified complication Current Visit: Yes Status: Acute Code(s): E11.69 - TYPE 2 DIABETES MELLITUS WITH OTHER SPECIFIED COMPLICATION SNOMED Code(s): 91575565 (7) Mixed hyperlipidemia Current Visit: Yes Status: Acute Code(s): E78.2 - MIXED HYPERLIPIDEMIA SNOMED Code(s): 054354980 (8) H/O malignant neoplasm of colon Current Visit: Yes Status: Acute Code(s): Z85.038 - PERSONAL HISTORY OF MALIGNANT NEOPLASM OF LARGE INTESTINE SNOMED Code(s): 230608120 (9) Essential (primary) hypertension Current Visit: Yes Status: Acute Code(s): I10 - ESSENTIAL (PRIMARY) HYPERTENSION SNOMED Code(s): 99148423 (10) Major depressive disorder, recurrent, moderate Current Visit: Yes Status: Acute Code(s): F33.1 - MAJOR DEPRESSIVE DISORDER, RECURRENT, MODERATE SNOMED Code(s): 426644413 (11) Oxygen dependent Current Visit: Yes Status: Acute Code(s): Z99.81 - DEPENDENCE ON SUPPLEMENTAL OXYGEN SNOMED Code(s): 644203683463 (12) COPD (chronic obstructive pulmonary disease) Current Visit: Yes Status: Acute Code(s): J44.9 - CHRONIC OBSTRUCTIVE PULMONARY DISEASE, UNSPECIFIED SNOMED Code(s): 71774080 Plan: We'll consult GI regarding a positive Hemoccult and anemia worse than previous. Blood loss anemia or macrocytic, is most likely multifactorial. We'll consult cardiology as she did have a syncopal episode. It sounds as if it's more vasovagal in nature. We'll await the recommendations. She may need additional diuretic besides hydrochlorothiazide. I did hold her blood pressure medication this time due to her [id number] blood pressure and syncope. Continue to monitor Continue CBC every 6 hours 4. Repeat labs in a.m. she'll be reevaluated in the next 24 hours
[2023-03-22] MEDS: buPROPion XL 150 MG TAB.ER.24H PO SCH (14:54)
[2023-03-22] MEDS: LETROZOLE 2.5 MG TAB PO SCH (14:54)
[2023-03-22] MEDS: ALBUTEROL NEBULIZED 2.5 MG/3 ML INHALATION PRN ×2 (16:17→19:42)
[2023-03-22 17:09] LABS: Glucose,Whole Blood 83 mg/dL (70-110)
[2023-03-22 18:11] LABS: Basophils % (A) 0 %; Eosinophils # (A) 0.1 k/uL (0-0.7); Eosinophils % (A) 2 %; HCT 23.6 % (34.0-46.0); HGB 7.5 gm/dL (11.4-16.0); Hypochromasia Moderate; Lymphocytes # (A) 1.2 k/uL (1.0-4.8); Lymphocytes % (A) 19 %; MCH 32.5 pg (25.0-35.0); MCHC 31.7 g/dL (31.0-37.0); MCV 102.7 fL (80.0-100.0); Macrocytosis Slight; Mean Platelet Volume 10.2; Monocytes # (A) 0.3 k/uL (0-1.0); Monocytes % (A) 6 %; Neutrophils # (A) 4.3 k/uL (1.3-7.7); Neutrophils % (A) 71 %; Platelet Count 93 k/uL (150-450); RBC 2.29 m/uL (3.80-5.40); RDW 14.9 % (11.5-15.5)
[2023-03-22 20:24] LABS: Glucose,Whole Blood 114 mg/dL (70-110)
[2023-03-22] MEDS: MAGNESIUM OXIDE 400 MG TAB PO SCH (21:18)
[2023-03-22] MEDS: ATORVASTATIN 20 MG TAB PO SCH (21:18)
[2023-03-22] MEDS: INSULIN DETEMIR (LEVEMIR) 100 UNIT/ML SYR SQ SCH (22:19)
[2023-03-23 00:08] LABS: Basophils % (A) 0 %; Eosinophils # (A) 0.1 k/uL (0-0.7); Eosinophils % (A) 2 %; HCT 22.9 % (34.0-46.0); HGB 7.5 gm/dL (11.4-16.0); Hypochromasia Moderate; Lymphocytes # (A) 1.1 k/uL (1.0-4.8); Lymphocytes % (A) 18 %; MCH 33.3 pg (25.0-35.0); MCHC 32.7 g/dL (31.0-37.0); MCV 101.8 fL (80.0-100.0); Macrocytosis Slight; Mean Platelet Volume 9.7; Monocytes # (A) 0.3 k/uL (0-1.0); Monocytes % (A) 5 %; Neutrophils # (A) 4.5 k/uL (1.3-7.7); Neutrophils % (A) 73 %; Platelet Count 91 k/uL (150-450); RBC 2.25 m/uL (3.80-5.40); RDW 14.8 % (11.5-15.5); WBC 6.2 k/uL (3.8-10.6)
[2023-03-23] MEDS: INSULIN ASPART (NovoLOG) 100 UNIT/ML VIAL SQ SCH ×4 (05:54→20:59)
[2023-03-23 05:55] LABS: Glucose,Whole Blood 138 mg/dL (70-110)
[2023-03-23] MEDS: amLODIPine 5 MG TAB PO SCH (08:29)
[2023-03-23] MEDS: LOSARTAN 25 MG TAB PO SCH (08:30)
[2023-03-23] MEDS: NON FORMULARY DRUG (Ubidecarenone [Coenzyme Q10] 200 MG Capsule) PO SCH (08:34)
[2023-03-23] MEDS: PREGABALIN 75 MG CAP PO SCH ×2 (08:38→20:28)
[2023-03-23] MEDS: MULTIVITAMINS, THERA 1 EACH TAB PO SCH (08:38)
[2023-03-23] MEDS: buPROPion XL 150 MG TAB.ER.24H PO SCH (08:38)
[2023-03-23] MEDS: LETROZOLE 2.5 MG TAB PO SCH (08:38)
[2023-03-23 08:55] LABS: ALT 19 U/L (8-44); AST 25 U/L (13-35); Albumin 3.1 g/dL (3.8-4.9); Albumin/Globulin Ratio 0.89 Ratio (1.60-3.17); Alkaline Phosphatase 83 U/L (41-126); Blood Urea Nitrogen 39.6 mg/dL (9.0-27.0); Calcium 8.9 mg/dL (8.7-10.3); Carbon Dioxide 32.7 mmol/L (21.6-31.8); Chloride 102 mmol/L (96-109); Globulin 3.5 g/dL (1.6-3.3); Glucose 135 mg/dL (70-110); Magnesium 2.3 mg/dL (1.5-2.4); Potassium 4.2 mmol/L (3.5-5.5); Sodium 142 mmol/L (135-145); Total Bilirubin 0.5 mg/dL (0.3-1.2); Total Protein 6.6 g/dL (6.2-8.2)
[2023-03-23 09:49] LABS: Basophils # (A) 0.04 X 10*3/uL (0.00-0.10); Basophils % (A) 0.6 %; Eosinophils # (A) 0.11 X 10*3/uL (0.04-0.35); Eosinophils % (A) 1.6 %; HCT 24.4 % (37.2-46.3); HGB 7.3 g/dL (12.0-15.0); Hypochromasia (M) 2+; Lymphocytes % (A) 14.1 %; MCHC 29.9 g/dL (32.0-37.0); Macrocytosis (M) 2+; Mean Platelet Volume 12.2 FL (9.5-12.2); Monocytes # (A) 0.49 X 10*3/uL (0.20-1.00); Monocytes % (A) 6.9 %; NRBC Per 100 WBC 0 X 10*3/uL (0.00-0.01); Neutrophils % (A) 76.4 %; Platelet Count 89 X 10*3/uL (140-440); RBC 2.28 X 10*6/uL (4.10-5.20); RDW 15.6 % (11.5-14.5); WBC 7.07 X 10*3/uL (4.50-10.00)
[2023-03-23 12:51] LABS: Glucose,Whole Blood 123 mg/dL (70-110)
--- NOTE | 2023-03-23 13:02 | P.PN ---
Subjective 78-year-old morbidly obese female well-known to me. She has type 2 diabetes. She reports yesterday while in the bathroom she was straining use the toilet and had a cecal episode findings on the shower. She is assistance from EMS to get up. She reports later on that day she fell forward. She did not lose consciousness. When she was lightheaded. She denies any chest pains pressures or shortness of breath this time. No nausea or vomiting. The emergency room she was found to have hemoglobin 8.1. This is unusual for her. Hemoccult on the floor was positive. Repeat H&H are 7.5 and 7.7. She does mention some black stools recently. Blood pressure currently is normal. Pulse oximetry is normal S1 as his heart rate rest or in temperature. 03/23/2023: Patient admitted with syncope. She's found to be slightly anemic and have positive Hemoccult. Staff report there is some perianal irritation that may be responsible for the positive blood. Hemoglobin has been stable and last repeat hemoglobin was 7.3. She has macrocytic with an MCV of 107. Manual differential showed macrocytosis and hypochromia. Chemistries are stable and he r GFR is 35. Glucose is controlled. She denies any chest pains pressures shortness of breath. Indicates her weakness is much improved from yesterday. Cardiology discontinued by systolic and started her on amlodipine. They ordered orthostatic blood pressure was reviewed and are negative. GI services not available and I discussed with the patient that we will hold off transferring her as her hemoglobin has been stable and the possibility exists that she does not have GI bleed, but other etiology leading to anemia. Objective - Vital Signs Vital signs: Vital Signs Temp 98.1 F 03/23/23 07:00 Pulse 67 03/23/23 07:00 Resp 15 03/23/23 07:00 BP 98/41 03/23/23 07:00 Pulse Ox 93 L 03/23/23 07:00 FiO2 Intake & Output 03/22/23 03/23/23 03/23/23 18:59 06:59 18:59 Intake Total 980 240 Balance 980 240 Intake: Oral 980 240 Other: Voiding Method External Catheter # Voids 1 - Exam GENERAL: Elderly obese female, relaxed HEAD: Atraumatic, normocephalic. NECK: Normal range of motion, supple without lymphadenopathy or JVD, no thyromegaly LUNGS: Breath sounds slightly coarse to auscultation bilaterally and equal. No wheezes rales or rhonchi. HEART: Regular rate and rhythm without murmurs, rubs or gallops.S1S2 Normal ABDOMEN: Soft, nontender, normoactive bowel sounds. No guarding, no rebound. No masses appreciated. Distended due to truncal obesity EXTREMITIES: Normal range of motion, no pitting. No clubbing or cyanosis. +2 edema with some hyperkeratinization NEUROLOGICAL: Cranial nerves II through XII grossly intact. Normal speech, normal gait. PSYCH: Normal mood, normal affect. SKIN: Warm, Dry, normal turgor, no rashes or lesions noted. - Labs CBC & Chem 7: 03/23/23 05:43 03/23/23 05:43 Labs: Abnormal Lab Results - Last 24 Hours (Table) 03/22/23 03/22/23 03/22/23 Range/Units 13:00 17:51 20:22 RBC 2.30 L 2.29 L (3.80-5.40) m/uL Hgb 7.7 L 7.5 L (11.4-16.0) gm/dL Hct 23.7 L 23.6 L (34.0-46.0) % MCV 103.1 H 102.7 H (80.0-100.0) fL MCHC (32.0-37.0) g/dL RDW (11.5-14.5) % Plt Count 87 L 93 L (150-450) k/uL Hypochromasia (manual) Macrocytosis (manual) Carbon Dioxide (21.6-31.8) mmol/L BUN (9.0-27.0) mg/dL Est GFR (CKD-EPI) (>=60) BUN/Creatinine Ratio (12.00-20.00) Ratio Glucose (70-110) mg/dL POC Glucose (mg/dL) 114 H (70-110) mg/dL Albumin (3.8-4.9) g/dL Globulin (1.6-3.3) g/dL Albumin/Globulin Ratio (1.60-3.17) Ratio 03/22/23 03/23/23 03/23/23 Range/Units 23:57 05:43 05:43 RBC 2.25 L 2.28 L (3.80-5.40) m/uL Hgb 7.5 L 7.3 L (11.4-16.0) gm/dL Hct 22.9 L 24.4 L (34.0-46.0) % MCV 101.8 H 107.0 H (80.0-100.0) fL MCHC 29.9 L (32.0-37.0) g/dL RDW 15.6 H (11.5-14.5) % Plt Count 91 L 89 L (150-450) k/uL Hypochromasia (manual) 2+ A Macrocytosis (manual) 2+ A Carbon Dioxide 32.7 H (21.6-31.8) mmol/L BUN 39.6 H (9.0-27.0) mg/dL Est GFR (CKD-EPI) 35 L (>=60) BUN/Creatinine Ratio 26.40 H (12.00-20.00) Ratio Glucose 135 H (70-110) mg/dL POC Glucose (mg/dL) (70-110) mg/dL Albumin 3.1 L (3.8-4.9) g/dL Globulin 3.5 H (1.6-3.3) g/dL Albumin/Globulin Ratio 0.89 L (1.60-3.17) Ratio 03/23/23 03/23/23 Range/Units 05:53 12:50 RBC (3.80-5.40) m/uL Hgb (11.4-16.0) gm/dL Hct (34.0-46.0) % MCV (80.0-100.0) fL MCHC (32.0-37.0) g/dL RDW (11.5-14.5) % Plt Count (150-450) k/uL Hypochromasia (manual) Macrocytosis (manual) Carbon Dioxide (21.6-31.8) mmol/L BUN (9.0-27.0) mg/dL Est GFR (CKD-EPI) (>=60) BUN/Creatinine Ratio (12.00-20.00) Ratio Glucose (70-110) mg/dL POC Glucose (mg/dL) 138 H 123 H (70-110) mg/dL Albumin (3.8-4.9) g/dL Globulin (1.6-3.3) g/dL Albumin/Globulin Ratio (1.60-3.17) Ratio Microbiology - Last 24 Hours (Table) 03/21/23 22:00 Urine Culture - Final Urine,Voided Assessment and Plan (1) Syncope Current Visit: Yes Status: Acute Code(s): R55 - SYNCOPE AND COLLAPSE SNOMED Code(s): 001007858 (2) Anemia in chronic illness Current Visit: Yes Status: Acute Code(s): D63.8 - ANEMIA IN OTHER CHRONIC DISEASES CLASSIFIED ELSEWHERE SNOMED Code(s): 271886527 (3) GI bleeding Current Visit: Yes Status: Acute Code(s): K92.2 - GASTROINTESTINAL HEMORRHAGE, UNSPECIFIED SNOMED Code(s): 44814265 (4) CKD (chronic kidney disease) stage 4, GFR 15-29 ml/min Current Visit: Yes Status: Acute Code(s): N18.4 - CHRONIC KIDNEY DISEASE, STAGE 4 (SEVERE) SNOMED Code(s): 095576740 (5) Type 2 diabetes mellitus with other circulatory complications Current Visit: Yes Status: Acute Code(s): E11.59 - TYPE 2 DIABETES MELLITUS WITH OTH CIRCULATORY COMPLICATIONS SNOMED Code(s): 61740776 (6) Type 2 diabetes mellitus with other specified complication Current Visit: Yes Status: Acute Code(s): E11.69 - TYPE 2 DIABETES MELLITUS WITH OTHER SPECIFIED COMPLICATION SNOMED Code(s): 05666884 (7) Mixed hyperlipidemia Current Visit: Yes Status: Acute Code(s): E78.2 - MIXED HYPERLIPIDEMIA SNOMED Code(s): 440784724 (8) H/O malignant neoplasm of colon Current Visit: Yes Status: Acute Code(s): Z85.038 - PERSONAL HISTORY OF MALIGNANT NEOPLASM OF LARGE INTESTINE SNOMED Code(s): 655222325 (9) Essential (primary) hypertension Current Visit: Yes Status: Acute Code(s): I10 - ESSENTIAL (PRIMARY) HYPERTENSION SNOMED Code(s): 40009427 (10) Major depressive disorder, recurrent, moderate Current Visit: Yes Status: Acute Code(s): F33.1 - MAJOR DEPRESSIVE DISORDER, RECURRENT, MODERATE SNOMED Code(s): 900125663 (11) Oxygen dependent Current Visit: Yes Status: Acute Code(s): Z99.81 - DEPENDENCE ON SUPPLEMENTAL OXYGEN SNOMED Code(s): 633497499011 (12) COPD (chronic obstructive pulmonary disease) Current Visit: Yes Status: Acute Code(s): J44.9 - CHRONIC OBSTRUCTIVE PULMONARY DISEASE, UNSPECIFIED SNOMED Code(s): 29849623 Plan: Since GI is not available, her hemoglobin remained stable, and his macrocytic. We'll look at other causes at this time. Reevaluate her B12 folic acid and iron studies. We will Hemoccult her next stool. Staff will monitor for any black or grossly bloody stools or emesis. Patient will continue on her medications as ordered the change to amlodipine. She appears improved. She'll ambulate with assistance and will repeat labs in a.m. reevaluate in the next 24 hours
--- NOTE | 2023-03-23 13:05 | P.PN ---
Subjective Progress Note Date: 03/23/23 This is Davide Ojeda NP, I'm dictating on behalf of Dr. Zelaya's H&P and A&P. Patient was interviewed and examined. Patient is a pleasant 78-year-old female who presented to the hospital for complaints of the CPAP. Patient had a fall at home stating that she blacked out. CT they had at the time was negative for any obvious acute intracranial abnormality. Patient did demonstrate sinus bradycardia with prolonged MS interval on EKG. Due to elevated blood pressures we started amlodipine 5 mg daily yesterday and discontinue her by systolic. This appears to have worked, as the patient's blood pressure is much better today. We requested orthostatic vital signs, however does not appear these are completed. The patient overall today reports that she's feeling okay. She's had no episodes of syncope overnight. She is denying chest pain and shortness of breath at this time. Echocardiogram completed yesterday demonstrates normal LV function with right ventricular and biatrial enlargement. GENERAL: Well-appearing, well-nourished and in no acute distress. NECK: Supple without JVD or thyromegaly. LUNGS: Breath sounds clear to auscultation bilaterally. Respiration equal and unlabored. No wheezes, rales or rhonchi. HEART: Regular rate and rhythm without murmurs, rubs or gallops. S1 and S2 heard. EXTREMITIES: Normal range of motion, no edema. No clubbing or cyanosis. Peripheral pulses intact and strong. VITALS: Temp 98.1, pulse 73, blood pressure 118/61, O2 saturation 95% on 2 L TELEMETRY: Normal sinus rhythm LABS: White count 7.0, hemoglobin 7.3, platelets 89, sodium 142, potassium 4.2, BUN 39.6, creatinine 1.5, magnesium 2.3 IMPRESSION: 1. Syncope 2. Chronic kidney disease 3. Occult blood stool positive 4. Vertigo 5. Right ventricular and biatrial enlargement on echo PLAN: Obtain orthostatic vital signs. Continue amlodipine 5 mg daily. Recommend GI workup for Hemoccult positive stool, hemoglobin is lower today. Further recommendations based on patient's clinical course. Objective - Vital Signs Vital signs: Vital Signs Temp 98.1 F 03/23/23 07:00 Pulse 67 03/23/23 07:00 Resp 15 03/23/23 07:00 BP 98/41 03/23/23 07:00 Pulse Ox 93 L 03/23/23 07:00 FiO2 Intake & Output 03/22/23 03/23/23 03/23/23 18:59 06:59 18:59 Intake Total 980 240 Balance 980 240 Intake: Oral 980 240 Other: Voiding Method External Catheter # Voids 1 - Labs CBC & Chem 7: 03/23/23 05:43 03/23/23 05:43 Labs: Abnormal Lab Results - Last 24 Hours (Table) 03/22/23 03/22/23 03/22/23 Range/Units 13:00 17:51 20:22 RBC 2.30 L 2.29 L (3.80-5.40) m/uL Hgb 7.7 L 7.5 L (11.4-16.0) gm/dL Hct 23.7 L 23.6 L (34.0-46.0) % MCV 103.1 H 102.7 H (80.0-100.0) fL MCHC (32.0-37.0) g/dL RDW (11.5-14.5) % Plt Count 87 L 93 L (150-450) k/uL Hypochromasia (manual) Macrocytosis (manual) Carbon Dioxide (21.6-31.8) mmol/L BUN (9.0-27.0) mg/dL Est GFR (CKD-EPI) (>=60) BUN/Creatinine Ratio (12.00-20.00) Ratio Glucose (70-110) mg/dL POC Glucose (mg/dL) 114 H (70-110) mg/dL Albumin (3.8-4.9) g/dL Globulin (1.6-3.3) g/dL Albumin/Globulin Ratio (1.60-3.17) Ratio 03/22/23 03/23/23 03/23/23 Range/Units 23:57 05:43 05:43 RBC 2.25 L 2.28 L (3.80-5.40) m/uL Hgb 7.5 L 7.3 L (11.4-16.0) gm/dL Hct 22.9 L 24.4 L (34.0-46.0) % MCV 101.8 H 107.0 H (80.0-100.0) fL MCHC 29.9 L (32.0-37.0) g/dL RDW 15.6 H (11.5-14.5) % Plt Count 91 L 89 L (150-450) k/uL Hypochromasia (manual) 2+ A Macrocytosis (manual) 2+ A Carbon Dioxide 32.7 H (21.6-31.8) mmol/L BUN 39.6 H (9.0-27.0) mg/dL Est GFR (CKD-EPI) 35 L (>=60) BUN/Creatinine Ratio 26.40 H (12.00-20.00) Ratio Glucose 135 H (70-110) mg/dL POC Glucose (mg/dL) (70-110) mg/dL Albumin 3.1 L (3.8-4.9) g/dL Globulin 3.5 H (1.6-3.3) g/dL Albumin/Globulin Ratio 0.89 L (1.60-3.17) Ratio 03/23/23 03/23/23 Range/Units 05:53 12:50 RBC (3.80-5.40) m/uL Hgb (11.4-16.0) gm/dL Hct (34.0-46.0) % MCV (80.0-100.0) fL MCHC (32.0-37.0) g/dL RDW (11.5-14.5) % Plt Count (150-450) k/uL Hypochromasia (manual) Macrocytosis (manual) Carbon Dioxide (21.6-31.8) mmol/L BUN (9.0-27.0) mg/dL Est GFR (CKD-EPI) (>=60) BUN/Creatinine Ratio (12.00-20.00) Ratio Glucose (70-110) mg/dL POC Glucose (mg/dL) 138 H 123 H (70-110) mg/dL Albumin (3.8-4.9) g/dL Globulin (1.6-3.3) g/dL Albumin/Globulin Ratio (1.60-3.17) Ratio Microbiology - Last 24 Hours (Table) 03/21/23 22:00 Urine Culture - Final Urine,Voided
[2023-03-23] MEDS: FOLIC ACID-VIT B COMPLEX-VIT C 1 CAP PO SCH (15:30)
[2023-03-23] MEDS: ALBUTEROL NEBULIZED 2.5 MG/3 ML INHALATION PRN (16:54)
[2023-03-23 17:42] LABS: Glucose,Whole Blood 110 mg/dL (70-110)
[2023-03-23] MEDS: ATORVASTATIN 20 MG TAB PO SCH (20:28)
[2023-03-23] MEDS: MAGNESIUM OXIDE 400 MG TAB PO SCH (20:28)
[2023-03-23 20:40] LABS: Glucose,Whole Blood 232 mg/dL (70-110)
[2023-03-23] MEDS: INSULIN DETEMIR (LEVEMIR) 100 UNIT/ML SYR SQ SCH (20:58)
[2023-03-24 06:17] LABS: Glucose,Whole Blood 144 mg/dL (70-110)
[2023-03-24] MEDS: INSULIN ASPART (NovoLOG) 100 UNIT/ML VIAL SQ SCH ×4 (06:18→20:59)
[2023-03-24] MEDS: ALBUTEROL NEBULIZED 2.5 MG/3 ML INHALATION PRN (07:50)
[2023-03-24 09:13] LABS: Basophils # (A) 0.04 X 10*3/uL (0.00-0.10); Basophils % (A) 0.4 %; HCT 23.1 % (37.2-46.3); HGB 6.9 g/dL (12.0-15.0); Lymphocytes # (A) 0.94 X 10*3/uL (0.90-5.00); Lymphocytes % (A) 9.8 %; MCH 31.8 pg (27.0-32.0); MCHC 29.9 g/dL (32.0-37.0); MCV 106.5 FL (80.0-97.0); Monocytes # (A) 0.72 X 10*3/uL (0.20-1.00); Monocytes % (A) 7.5 %; NRBC Per 100 WBC 0 X 10*3/uL (0.00-0.01); Neutrophils # (A) 7.76 X 10*3/uL (1.80-7.70); Neutrophils % (A) 80.7 %; Platelet Count 89 X 10*3/uL (140-440); RBC 2.17 X 10*6/uL (4.10-5.20); RDW 15.4 % (11.5-14.5); WBC 9.62 X 10*3/uL (4.50-10.00)
[2023-03-24 09:24] LABS: % Iron Saturation 7.73 (12.00-45.00); BUN/Creat Ratio 22.73 Ratio (12.00-20.00); Blood Urea Nitrogen 34.1 mg/dL (9.0-27.0); Calcium 8.7 mg/dL (8.7-10.3); Chloride 101 mmol/L (96-109); Glucose 126 mg/dL (70-110); Iron 32 UG/DL (50-170); Potassium 4.6 mmol/L (3.5-5.5); Sodium 140 mmol/L (135-145); Total Iron Binding Capacity 414 UG/DL (228-460)
[2023-03-24] MEDS: NON FORMULARY DRUG (Ubidecarenone [Coenzyme Q10] 200 MG Capsule) PO SCH (09:48)
[2023-03-24] MEDS: LOSARTAN 25 MG TAB PO SCH (09:49)
[2023-03-24] MEDS: MULTIVITAMINS, THERA 1 EACH TAB PO SCH (09:49)
[2023-03-24] MEDS: PREGABALIN 75 MG CAP PO SCH ×2 (09:49→21:18)
[2023-03-24] MEDS: buPROPion XL 150 MG TAB.ER.24H PO SCH (09:50)
[2023-03-24] MEDS: amLODIPine 5 MG TAB PO SCH (09:50)
[2023-03-24] MEDS: LETROZOLE 2.5 MG TAB PO SCH (09:51)
[2023-03-24] MEDS: FOLIC ACID-VIT B COMPLEX-VIT C 1 CAP PO SCH (09:51)
[2023-03-24] MEDS ORDERED: FUROSEMIDE 10 MG/ML 2 ML VIAL IV PRN (10:00)
--- NOTE | 2023-03-24 11:22 | P.GSCN ---
History of Present Illness Consult date: 03/24/23 History of present illness: CHIEF COMPLAINT: Fall and syncope HISTORY OF PRESENT ILLNESS: This is a 78-year-old female who presented to the hospital with complaints of fall and syncopal episode. She is found to be anemic. Her hemoglobin was 8.1 on admission and has dropped to 6.9. She is scheduled for 1 unit of blood today. She does report her stools have been black for about 3 months. She reports that she thought it was due to her eating Oreo cookies. She denies any abdominal pain. Denies any nausea or vomiting. She has a history of sigmoid colon cancer and had a sigmoid colectomy in 2014. She reports her last colonoscopy was about 5 years ago and per patient had negative findings. She's never had an EGD. She denies being on any blood thinners. D enies any NSAID use. PAST MEDICAL HISTORY: SEE below PAST SURGICAL HISTORY: See below MEDICATIONS: See below ALLERGIES: See below SOCIAL HISTORY: No illicit drug use. REVIEW OF SYSTEMS: CONSTITUTIONAL: Denies fever or chills. HEENT: Denies blurred vision, vision changes, or eye pain. Denies hemoptysis CARDIOVASCULAR: Denies chest pain or pressure. RESPIRATORY: No shortness of breath. GASTROINTESTINAL: See HPI for pertinent findings HEMATOLOGIC: Denies bleeding disorders. GENITOURINARY: Denies any blood in urine or increased urinary frequency. SKIN: Denies pruitis. Denies rash. PHYSICAL EXAM: VITAL SIGNS: Reviewed GENERAL: Well-developed in no acute distress. ABDOMEN: Soft. Obese. Nondistended. Nontender NEUROLOGIC: Alert and oriented. Cranial nerves II through XII grossly intact. LABORATORY DATA: WBC 9.62 Hgb 6.9 platelets 89 Sodium 140 potassium 4.6 creatinine 1.5 Iron level 32 Stool for occult blood positive IMAGING: Echo normal LV systolic function Chest x-ray reports cardiomegaly with mild central vascular congestion and diffuse interstitial prominence suggesting edema. Correlate for mild CHF ASSESSMENT: 1. Anemia with black stools 2. History of sigmoid colon cancer status post sigmoid colectomy in 2014 and status post chemotherapy 3. History of breast cancer PLAN: -EGD scheduled for tomorrow, 03/25/[address] Lynn -Start IV Protonix 40 mg twice a day -Continue to monitor hemoglobin -Continue to monitor for any signs or symptoms of bleeding -Agree with blood transfusion Physician Puller Over note has been reviewed by physician. Signing provider agrees with the documented findings, assessment, and plan of care. I have personally seen and examined the patient, reviewed the PHARMACY OPERATIONS COORDINATOR /PAs history, exam and MDM and agree with the assessment and plan as written. Based on total visit time, I have performed more than 50% of the visit. As above: Patient known to our service from prior colon cancer and breast cancer. Patient with black colored stools. Hemoglobin 6.9. We'll proceed with upper endoscopy tomorrow. Past Medical History Past Medical History: Cancer, COPD, Diabetes Mellitus, Hyperlipidemia, Hypertension, Liver Disease, Osteoarthritis (OA), Sleep Apnea/CPAP/BIPAP Additional Past Medical History / Comment(s): hx melanoma, IDDM type II, "fatty liver", colon CANCER with surgery and chemo, KIDNEY STONE, neuropathy bilateral hands and feet. Arthritis in thumbs. bilateral lower leg edema, no machine for sleep apnea. History of Any Multi-Drug Resistant Organisms: None Reported Past Surgical History: Bowel Resection, Breast Surgery, Orthopedic Surgery Additional Past Surgical History / Comment(s): 03/08/16 repair incarcerated hernia with mesh and removal of port a cath. Other surgical hx: D&C, left foot surgery, PORT A CATHETER, DENTAL IMPLANTS. 18 inches of bowel removed for Cancer. arthroscopic rt knee to remove torn meniscus. bilateral cataracts removed, right breast lumpectomy Past Anesthesia/Blood Transfusion Reactions: Previous Problems w/ Anesthesia Additional Past Anesthesia/Blood Transfusion Reaction / Comm: "came out fighting, difficult coming out" hard to wake up. Past Psychological History: Depression Smoking Status: Former smoker Past Alcohol Use History: None Reported Past Drug Use History: None Reported - Past Family History Brother(s) Family Medical History: Cancer Additional Family Medical History / Comment(s): leukemia 2 types Medications and Allergies Home Medications Medication Instructions Recorded Confirmed Type Simvastatin [Zocor] 40 mg PO HS 04/08/14 03/22/23 History buPROPion XL [Wellbutrin XL] 150 mg PO DAILY 04/08/14 03/22/23 History hydroCHLOROthiazide [Hydrodiuril] 25 mg PO DAILY 04/08/14 03/22/23 History Albuterol Inhaler [Ventolin Hfa 2 puff INHALATION RT-QID PRN #1 02/08/15 03/22/23 Rx Inhaler] puff Insulin Glargine,Hum.rec.anlog 68 unit SQ HS 03/07/16 03/22/23 History [Lantus Solostar] Pregabalin [Lyrica] 75 mg PO BID 03/07/16 03/22/23 History metFORMIN HCL [Glucophage] 500 mg PO DAILY 03/07/16 03/22/23 History Multivit-Min/Iron/Folic/Lutein 1 tab PO DAILY 06/28/16 03/22/23 History [Centrum Silver Women Tablet] Dulaglutide [Trulicity] 4.5 mg SQ WE 03/22/23 03/22/23 History Letrozole [Femara] 2.5 mg PO DAILY 03/22/23 03/22/23 History Losartan Potassium 100 mg PO DAILY 03/22/23 03/22/23 History Magnesium Oxide [Mag-Ox] 250 mg PO HS 03/22/23 03/22/23 History Ubidecarenone [Coenzyme Q10] 200 mg PO DAILY 03/22/23 03/22/23 History Allergies Allergy/AdvReac Type Severity Reaction Status Date / Time bee pollen Allergy Severe Anaphylaxis Verified 03/22/23 11:49 adhesive Allergy Unknown Verified 03/22/23 11:49 hydromorphone [From Dilaudid] Allergy Hallucinati Verified 03/22/23 11:49 ons Penicillins Allergy Rash/Hives Verified 03/22/23 11:49 Surgical - Exam Vital Signs Temp Pulse Resp BP Pulse Ox 98 F 66 18 127/92 97 03/21/23 17:24 03/21/23 17:24 03/21/23 17:24 03/21/23 17:24 03/21/23 17:24 Results - Labs 03/24/23 05:40 03/24/23 05:25 Abnormal Lab Results - Last 24 Hours (Table) 03/23/23 03/23/23 03/24/23 Range/Units 12:50 20:39 05:25 RBC (4.10-5.20) X 10*6/uL Hgb (12.0-15.0) g/dL Hct (37.2-46.3) % MCV (80.0-97.0) FL MCHC (32.0-37.0) g/dL RDW (11.5-14.5) % Plt Count (140-440) X 10*3/uL Neutrophils # (1.80-7.70) X 10*3/uL Carbon Dioxide 33.0 H (21.6-31.8) mmol/L BUN 34.1 H (9.0-27.0) mg/dL Est GFR (CKD-EPI) 35 L (>=60) BUN/Creatinine Ratio 22.73 H (12.00-20.00) Ratio Glucose 126 H (70-110) mg/dL POC Glucose (mg/dL) 123 H 232 H (70-110) mg/dL Iron 32 L (50-170) UG/DL % Saturation 7.73 L (12.00-45.00) 03/24/23 03/24/23 Range/Units 05:40 06:16 RBC 2.17 L (4.10-5.20) X 10*6/uL Hgb 6.9 A* (12.0-15.0) g/dL Hct 23.1 L (37.2-46.3) % MCV 106.5 H (80.0-97.0) FL MCHC 29.9 L (32.0-37.0) g/dL RDW 15.4 H (11.5-14.5) % Plt Count 89 L (140-440) X 10*3/uL Neutrophils # 7.76 H (1.80-7.70) X 10*3/uL Carbon Dioxide (21.6-31.8) mmol/L BUN (9.0-27.0) mg/dL Est GFR (CKD-EPI) (>=60) BUN/Creatinine Ratio (12.00-20.00) Ratio Glucose (70-110) mg/dL POC Glucose (mg/dL) 144 H (70-110) mg/dL Iron (50-170) UG/DL % Saturation (12.00-45.00) Diabetes panel 03/24/23 Range/Units 05:25 Sodium 140 (135-145) mmol/L Potassium 4.6 (3.5-5.5) mmol/L Chloride 101 (96-109) mmol/L Carbon Dioxide 33.0 H (21.6-31.8) mmol/L BUN 34.1 H (9.0-27.0) mg/dL Creatinine 1.5 (0.6-1.5) mg/dL Glucose 126 H (70-110) mg/dL Calcium 8.7 (8.7-10.3) mg/dL Calcium panel 03/24/23 Range/Units 05:25 Calcium 8.7 (8.7-10.3) mg/dL Pituitary panel 03/24/23 Range/Units 05:25 Sodium 140 (135-145) mmol/L Potassium 4.6 (3.5-5.5) mmol/L Chloride 101 (96-109) mmol/L Carbon Dioxide 33.0 H (21.6-31.8) mmol/L BUN 34.1 H (9.0-27.0) mg/dL Creatinine 1.5 (0.6-1.5) mg/dL Glucose 126 H (70-110) mg/dL Calcium 8.7 (8.7-10.3) mg/dL Adrenal panel 03/24/23 Range/Units 05:25 Sodium 140 (135-145) mmol/L Potassium 4.6 (3.5-5.5) mmol/L Chloride 101 (96-109) mmol/L Carbon Dioxide 33.0 H (21.6-31.8) mmol/L BUN 34.1 H (9.0-27.0) mg/dL Creatinine 1.5 (0.6-1.5) mg/dL Glucose 126 H (70-110) mg/dL Calcium 8.7 (8.7-10.3) mg/dL
--- NOTE | 2023-03-24 12:03 | P.PN ---
Subjective HISTORY OF PRESENT ILLNESS: 03/23/2023 Patient is a pleasant 78-year-old female who presented to the hospital for complaints of the CPAP. Patient had a fall at home stating that she blacked out. CT they had at the time was negative for any obvious acute intracranial abnormality. Patient did demonstrate sinus bradycardia with prolonged OK interval on EKG. Due to elevated blood pressures we started amlodipine 5 mg abdirahman ly yesterday and discontinue her by systolic. This appears to have worked, as the patient's blood pressure is much better today. We requested orthostatic vital signs, however does not appear these are completed. The patient overall today reports that she's feeling okay. She's had no episodes of syncope overnight. She is denying chest pain and shortness of breath at this time. Echocardiogram completed yesterday demonstrates normal LV function with right ventricular and biatrial enlargement. 03/24/2023 Patient examined this morning at the bedside. Patient denies any chest pain or pressure. She denies shortness of breath. She reports feeling slightly confused this morning and states when she woke up she was unsure where she was at. She denies having a bowel movement today. She states at home however she was having black stools. Patient's hemoglobin today is 6.9. General surgery has been consulted and patient is scheduled for EGD tomorrow. PHYSICAL EXAM: VITAL SIGNS: Reviewed. GENERAL: Well-developed in no acute distress. NECK: Supple. No JVD or thyromegaly LUNGS: Respirations even and unlabored. Lungs essentially clear to auscultation bilaterally. HEART: Regular rate and rhythm. S1 and S2 heard. EXTREMITIES: Normal range of motion. No clubbing or cyanosis. Peripheral pulses intact. No lower extremity edema ASSESSMENT: Acute anemia, etiology unclear Syncope, suspect secondary to above Chronic kidney disease History of vertigo PLAN: Continue current cardiac medications General surgery has been consulted and patient is scheduled for EGD tomorrow Patient is stable from a cardiac standpoint No further inpatient recommendations from a cardiology perspective We will sign off. Please reconsult if needed. Nurse practitioner note has been reviewed by physician. Signing provider agrees with the documented findings, assessment, and plan of care. Objective - Vital Signs Vital signs: Vital Signs Temp 99.5 F 03/24/23 07:00 Pulse 59 L 03/24/23 11:01 Resp 16 03/24/23 11:01 BP 119/54 03/24/23 11:01 Pulse Ox 96 03/24/23 11:01 FiO2 Intake & Output 03/23/23 03/24/23 03/24/23 18:59 06:59 18:59 Intake Total 1240 480 Balance 1240 480 Intake: Oral 1240 480 Other: Voiding Method External Catheter # Voids 1 - Labs CBC & Chem 7: 03/24/23 05:40 03/24/23 05:25 Labs: Abnormal Lab Results - Last 24 Hours (Table) 03/23/23 03/23/23 03/24/23 Range/Units 12:50 20:39 05:25 RBC (4.10-5.20) X 10*6/uL Hgb (12.0-15.0) g/dL Hct (37.2-46.3) % MCV (80.0-97.0) FL MCHC (32.0-37.0) g/dL RDW (11.5-14.5) % Plt Count (140-440) X 10*3/uL Neutrophils # (1.80-7.70) X 10*3/uL Carbon Dioxide 33.0 H (21.6-31.8) mmol/L BUN 34.1 H (9.0-27.0) mg/dL Est GFR (CKD-EPI) 35 L (>=60) BUN/Creatinine Ratio 22.73 H (12.00-20.00) Ratio Glucose 126 H (70-110) mg/dL POC Glucose (mg/dL) 123 H 232 H (70-110) mg/dL Iron 32 L (50-170) UG/DL % Saturation 7.73 L (12.00-45.00) Crossmatch 03/24/23 03/24/23 03/24/23 Range/Units 05:40 06:16 10:11 RBC 2.17 L (4.10-5.20) X 10*6/uL Hgb 6.9 A* (12.0-15.0) g/dL Hct 23.1 L (37.2-46.3) % MCV 106.5 H (80.0-97.0) FL MCHC 29.9 L (32.0-37.0) g/dL RDW 15.4 H (11.5-14.5) % Plt Count 89 L (140-440) X 10*3/uL Neutrophils # 7.76 H (1.80-7.70) X 10*3/uL Carbon Dioxide (21.6-31.8) mmol/L BUN (9.0-27.0) mg/dL Est GFR (CKD-EPI) (>=60) BUN/Creatinine Ratio (12.00-20.00) Ratio Glucose (70-110) mg/dL POC Glucose (mg/dL) 144 H (70-110) mg/dL Iron (50-170) UG/DL % Saturation (12.00-45.00) Crossmatch See Detail
--- NOTE | 2023-03-24 12:14 | P.PN ---
Subjective Progress Note Date: 03/24/23 Date: 03/23/23 12:57Initialization Date: 03/23/23 12:57 Subjective 78-year-old morbidly obese female well-known to me. She has type 2 diabetes. She reports yesterday while in the bathroom she was straining use the toilet and had a cecal episode findings on the shower. She is assistance from EMS to get up. She reports later on that day she fell forward. She did not lose consciousness. When she was lightheaded. She denies any chest pains pressures or shortness of breath this time. No nausea or vomiting. The emergency room she was found to have hemoglobin 8.1. This is unusual for her. Hemoccult on the floor was positive. Repeat H&H are 7.5 and 7.7. She does mention some black stools recently. Blood pressure currently is normal. Pulse oximetry is normal S1 as his heart rate rest or in temperature. 03/23/2023: Patient admitted with syncope. She's found to be slightly anemic and have positive Hemoccult. Staff report there is some perianal irritation that may be responsible for the positive blood. Hemoglobin has been stable and last repeat hemoglobin was 7.3. She has macrocytic with an MCV of 107. Manual differential showed macrocytosis and hypochromia. Chemistries are stable and her GFR is 35. Glucose is controlled. She denies any chest pains pressures shortness of breath. Indicates her weakness is much improved from yesterday. Cardiology discontinued by systolic and started her on amlodipine. They ordered orthostatic blood pressure was reviewed and are negative. GI services not coy ilable and I discussed with the patient that we will hold off transferring her as her hemoglobin has been stable and the possibility exists that she does not have GI bleed, but other etiology leading to anemia. 03/24/2023 hemoglobin decreased to 6.8, manic reporting mild shortness of breath, minimal confusion, mild anxiety. 1 unit of packed RBCs ordered. Maintained on PPI. Patient reports black stools 3 months without abdominal pain ,which she attributes to eating Oreo cookies. Denies nausea ,vomiting. Evaluated by general surgery, scheduled for EGD tomorrow. Objective - Vital Signs Vital signs: Vital Signs Temp 99.5 F 03/24/23 07:00 Pulse 59 L 03/24/23 11:01 Resp 16 03/24/23 11:01 BP 119/54 03/24/23 11:01 Pulse Ox 96 03/24/23 11:01 FiO2 Intake & Output 03/23/23 03/24/23 03/24/23 18:59 06:59 18:59 Intake Total 1240 480 Balance 1240 480 Intake: Oral 1240 480 Other: Voiding Method External Catheter # Voids 1 - Exam GENERAL: Elderly obese female, sitting up at side of bed, mild anxiety HEAD: Atraumatic, normocephalic. NECK: Supple, no JVD LUNGS: Breath sounds slightly coarse to auscultation bilaterally and equal. No wheezes rales or rhonchi. HEART: Regular rate and rhythm without murmurs, rubs or gallops.S1S2 Normal ABDOMEN: Soft, nontender, normoactive bowel sounds. No guarding, no rebound. No masses appreciated. Distended due to truncal obesity EXTREMITIES: no pitting. No clubbing or cyanosis. +2 edema NEUROLOGICAL: Cranial nerves II through XII grossly intact. Normal speech, normal gait. PSYCH: Normal mood, normal affect. SKIN: Warm, Dry, normal turgor, no rashes noted. - Labs CBC & Chem 7: 03/24/23 05:40 03/24/23 05:25 Labs: Abnormal Lab Results - Last 24 Hours (Table) 03/23/23 03/23/23 03/24/23 Range/Units 12:50 20:39 05:25 RBC (4.10-5.20) X 10*6/uL Hgb (12.0-15.0) g/dL Hct (37.2-46.3) % MCV (80.0-97.0) FL MCHC (32.0-37.0) g/dL RDW (11.5-14.5) % Plt Count (140-440) X 10*3/uL Neutrophils # (1.80-7.70) X 10*3/uL Carbon Dioxide 33.0 H (21.6-31.8) mmol/L BUN 34.1 H (9.0-27.0) mg/dL Est GFR (CKD-EPI) 35 L (>=60) BUN/Creatinine Ratio 22.73 H (12.00-20.00) Ratio Glucose 126 H (70-110) mg/dL POC Glucose (mg/dL) 123 H 232 H (70-110) mg/dL Iron 32 L (50-170) UG/DL % Saturation 7.73 L (12.00-45.00) Crossmatch 03/24/23 03/24/23 03/24/23 Range/Units 05:40 06:16 10:11 RBC 2.17 L (4.10-5.20) X 10*6/uL Hgb 6.9 A* (12.0-15.0) g/dL Hct 23.1 L (37.2-46.3) % MCV 106.5 H (80.0-97.0) FL MCHC 29.9 L (32.0-37.0) g/dL RDW 15.4 H (11.5-14.5) % Plt Count 89 L (140-440) X 10*3/uL Neutrophils # 7.76 H (1.80-7.70) X 10*3/uL Carbon Dioxide (21.6-31.8) mmol/L BUN (9.0-27.0) mg/dL Est GFR (CKD-EPI) (>=60) BUN/Creatinine Ratio (12.00-20.00) Ratio Glucose (70-110) mg/dL POC Glucose (mg/dL) 144 H (70-110) mg/dL Iron (50-170) UG/DL % Saturation (12.00-45.00) Crossmatch See Detail Assessment and Plan Assessment: (1) Syncope Current Visit: Yes Status: Acute Code(s): R55 - SYNCOPE AND COLLAPSE SNOMED Code(s): 658831928 (2) Anemia in chronic illness Current Visit: Yes Status: Acute Code(s): D63.8 - ANEMIA IN OTHER CHRONIC DISEASES CLASSIFIED ELSEWHERE SNOMED Code(s): 891616893 (3) GI bleeding Current Visit: Yes Status: Acute Code(s): K92.2 - GASTROINTESTINAL HEMORRHAGE, UNSPECIFIED SNOMED Code(s): 12555101 (4) CKD (chronic kidney disease) stage 4, GFR 15-29 ml/min Current Visit: Yes Status: Acute Code(s): N18.4 - CHRONIC KIDNEY DISEASE, STAGE 4 (SEVERE) SNOMED Code(s): 955685167 (5) Type 2 diabetes mellitus with other circulatory complications Current Visit: Yes Status: Acute Code(s): E11.59 - TYPE 2 DIABETES MELLITUS WITH OTH CIRCULATORY COMPLICATIONS SNOMED Code(s): 80667022 (6) Type 2 diabetes mellitus with other specified complication Current Visit: Yes Status: Acute Code(s): E11.69 - TYPE 2 DIABETES MELLITUS WITH OTHER SPECIFIED COMPLICATION SNOMED Code(s): 85754784 (7) Mixed hyperlipidemia Current Visit: Yes Status: Acute Code(s): E78.2 - MIXED HYPERLIPIDEMIA SNOMED Code(s): 769127041 (8) H/O malignant neoplasm of colon Current Visit: Yes Status: Acute Code(s): Z85.038 - PERSONAL HISTORY OF MALIGNANT NEOPLASM OF LARGE INTESTINE SNOMED Code(s): 659570214 (9) Essential (primary) hypertension Current Visit: Yes Status: Acute Code(s): I10 - ESSENTIAL (PRIMARY) HYPERTENSION SNOMED Code(s): 88347458 (10) Major depressive disorder, recurrent, moderate Current Visit: Yes Status: Acute Code(s): F33.1 - MAJOR DEPRESSIVE DISORDER, RECURRENT, MODERATE SNOMED Code(s): 263452368 (11) Oxygen dependent Current Visit: Yes Status: Acute Code(s): Z99.81 - DEPENDENCE ON SUPPLEMENT AL OXYGEN SNOMED Code(s): 577381391424 (12) COPD (chronic obstructive pulmonary disease) Current Visit: Yes Status: Acute Code(s): J44.9 - CHRONIC OBSTRUCTIVE PULMONARY DISEASE, UNSPECIFIED SNOMED Code(s): 92461169 Plan: Continue on current medication regime ,monitoring and symptomatic treatment. Further drop in hemoglobin, 1 unit of packed RBCs ordered and General surgery consulted. EGD scheduled for tomorrow. PPI increased to BID.Close monitoring of CBC with repeat CBC this afternoon and in a.m. The impression and plan of care has been dictated as directed. : I performed a history and examination of this patient, discussed the same with the dictator. I agree with the dictator's note ,documented as a scribe. Any additional findings or plans will be noted.
[2023-03-24] MEDS: PANTOPRAZOLE 40 MG/10 ML VIAL IVP SCH ×2 (12:31→21:18)
[2023-03-24 12:33] LABS: Glucose,Whole Blood 161 mg/dL (70-110)
[2023-03-24 17:22] LABS: Glucose,Whole Blood 108 mg/dL (70-110)
[2023-03-24 18:53] LABS: Basophils % (A) 0 %; Eosinophils # (A) 0.1 k/uL (0-0.7); Eosinophils % (A) 2 %; HCT 26.4 % (34.0-46.0); HGB 8.5 gm/dL (11.4-16.0); Hypochromasia Moderate; Lymphocytes # (A) 0.9 k/uL (1.0-4.8); Lymphocytes % (A) 10 %; MCH 32.9 pg (25.0-35.0); MCHC 32.3 g/dL (31.0-37.0); MCV 101.9 fL (80.0-100.0); Macrocytosis Slight; Mean Platelet Volume 10.2; Monocytes # (A) 0.5 k/uL (0-1.0); Monocytes % (A) 5 %; Neutrophils # (A) 7.6 k/uL (1.3-7.7); Neutrophils % (A) 81 %; Platelet Count 102 k/uL (150-450); Poikilocytosis Slight; RBC 2.59 m/uL (3.80-5.40); RDW 15.3 % (11.5-15.5); WBC 9.3 k/uL (3.8-10.6)
[2023-03-24 20:45] LABS: Glucose,Whole Blood 127 mg/dL (70-110)
[2023-03-24] MEDS: INSULIN DETEMIR (LEVEMIR) 100 UNIT/ML SYR SQ SCH (20:59)
[2023-03-24] MEDS: MAGNESIUM OXIDE 400 MG TAB PO SCH (21:18)
[2023-03-24] MEDS: ATORVASTATIN 20 MG TAB PO SCH (21:18)
[2023-03-25] MEDS: INSULIN ASPART (NovoLOG) 100 UNIT/ML VIAL SQ SCH ×2 (06:04→15:37)
[2023-03-25 06:08] LABS: Glucose,Whole Blood 139 mg/dL (70-110)
[2023-03-25 06:33] LABS: HCT 26.7 % (34.0-46.0); HGB 8.8 gm/dL (11.4-16.0); Hypochromasia Moderate; MCH 33.5 pg (25.0-35.0); MCHC 33.1 g/dL (31.0-37.0); MCV 101.4 fL (80.0-100.0); Macrocytosis Slight; Mean Platelet Volume 9.7; Platelet Count 108 k/uL (150-450); Poikilocytosis Slight; RBC 2.63 m/uL (3.80-5.40); WBC 10.4 k/uL (3.8-10.6)
[2023-03-25 06:42] LABS: African American GFR (CKD) 34 (>60 ml/min/1.73 sqM); Anion Gap 3 mmol/L; Blood Urea Nitrogen 38 mg/dL (7-17); Calcium 8.8 mg/dL (8.4-10.2); Carbon Dioxide 37 mmol/L (22-30); Chloride 96 mmol/L (98-107); Glucose 135 mg/dL (74-99); Non-African American GFR(CKD) 30 (>60 ml/min/1.73 sqM); Sodium 136 mmol/L (137-145)
[2023-03-25] MEDS: buPROPion XL 150 MG TAB.ER.24H PO SCH (10:01)
[2023-03-25] MEDS: LOSARTAN 25 MG TAB PO SCH (10:01)
[2023-03-25] MEDS: amLODIPine 5 MG TAB PO SCH (10:01)
[2023-03-25] MEDS: FOLIC ACID-VIT B COMPLEX-VIT C 1 CAP PO SCH (10:01)
[2023-03-25] MEDS: MULTIVITAMINS, THERA 1 EACH TAB PO SCH (10:02)
[2023-03-25] MEDS: PANTOPRAZOLE 40 MG/10 ML VIAL IVP SCH (10:02)
[2023-03-25] MEDS: LETROZOLE 2.5 MG TAB PO SCH (10:02)
[2023-03-25] MEDS: NON FORMULARY DRUG (Ubidecarenone [Coenzyme Q10] 200 MG Capsule) PO SCH (10:08)
[2023-03-25] MEDS: PREGABALIN 75 MG CAP PO SCH (10:08)
--- NOTE | 2023-03-25 10:46 | P.PN ---
Subjective Progress Note Date: 03/25/23 Date: 03/23/23 12:57Initialization Date: 03/23/23 12:57 Subjective 78-year-old morbidly obese female well-known to me. She has type 2 diabetes. She reports yesterday while in the bathroom she was straining use the toilet and had a cecal episode findings on the shower. She is assistance from EMS to get up. She reports later on that day she fell forward. She did not lose consciousness. When she was lightheaded. She denies any chest pains pressures or shortness of breath this time. No nausea or vomiting. The emergency room she was found to have hemoglobin 8.1. This is unusual for her. Hemoccult on the floor was positive. Repeat H&H are 7.5 and 7.7. She does mention some black stools recently. Blood pressure currently is normal. Pulse oximetry is normal S1 as his heart rate rest or in temperature. 03/23/2023: Patient admitted with syncope. She's found to be slightly anemic and have positive Hemoccult. Staff report there is some perianal irritation that may be responsible for the positive blood. Hemoglobin has been stable and last repeat hemoglobin was 7.3. She has macrocytic with an MCV of 107. Manual differential showed macrocytosis and hypochromia. Chemistries are stable and her GFR is 35. Glucose is controlled. She denies any chest pains pressures shortness of breath. Indicates her weakness is much improved from yesterday. Cardiology discontinued by systolic and started her on amlodipine. They ordered orthostatic blood pressure was reviewed and are negative. GI services not coy ilable and I discussed with the patient that we will hold off transferring her as her hemoglobin has been stable and the possibility exists that she does not have GI bleed, but other etiology leading to anemia. 03/24/2023 hemoglobin decreased to 6.8, manic reporting mild shortness of breath, minimal confusion, mild anxiety. 1 unit of packed RBCs ordered. Maintained on PPI. Patient reports black stools 3 months without abdominal pain ,which she attributes to eating Oreo cookies. Denies nausea ,vomiting. Evaluated by general surgery, scheduled for EGD tomorrow. 11/22/2022 NPO, scheduled for EGD. Received one unit of packed RBCs yesterday with current hemoglobin 8.8. Creatinine increased to 1.64, Cozaar discontinued. Denies chest pain, palpitations or shortness of breath. Objective - Vital Signs Vital signs: Vital Signs Temp 97.9 F 03/25/23 07:00 Pulse 65 03/25/23 07:00 Resp 16 03/25/23 07:00 BP 133/74 03/25/23 07:00 Pulse Ox 97 03/25/23 09:05 FiO2 Intake & Output 03/24/23 03/25/23 03/25/23 18:59 06:59 18:59 Intake Total 790 Balance 790 Intake: Oral 480 Blood Product 310 Rc As-1 Unit 310 [id number] Other: Voiding Method Bedside Commode Bedside Commode # Voids 3 2 - Exam GENERAL: Elderly obese female, sitting up at side of bed HEAD: Atraumatic, normocephalic. NECK: Supple, no JVD LUNGS: Breath sounds slightly coarse to auscultation bilaterally and equal. No wheezes rales or rhonchi. HEART: Regular rate and rhythm without murmurs, rubs or gallops.S1S2 Normal ABDOMEN: Soft, nontender, normoactive bowel sounds. No guarding, no rebound. No masses appreciated. Distended due to truncal obesity EXTREMITIES: no pitting. No clubbing or cyanosis. Positive edema NEUROLOGICAL: Cranial nerves II through XII grossly intact. No focal deficits. PSYCH: Normal mood, normal affect. SKIN: Warm, Dry, normal turgor, no rashes noted.Hyperkeratinization of lower extremities. - Labs CBC & Chem 7: 03/25/23 05:55 03/25/23 05:55 Labs: Abnormal Lab Results - Last 24 Hours (Table) 03/24/23 03/24/23 03/24/23 Range/Units 10:11 12:32 18:14 RBC 2.59 L (3.80-5.40) m/uL Hgb 8.5 L (11.4-16.0) gm/dL Hct 26.4 L (34.0-46.0) % MCV 101.9 H (80.0-100.0) fL Plt Count 102 L (150-450) k/uL Lymphocytes # 0.9 L (1.0-4.8) k/uL Sodium (137-145) mmol/L Chloride (98-107) mmol/L Carbon Dioxide (22-30) mmol/L BUN (7-17) mg/dL Creatinine (0.52-1.04) mg/dL Glucose (74-99) mg/dL POC Glucose (mg/dL) 161 H (70-110) mg/dL Crossmatch See Detail 03/24/23 03/25/23 03/25/23 Range/Units 20:44 05:55 05:55 RBC 2.63 L (3.80-5.40) m/uL Hgb 8.8 L (11.4-16.0) gm/dL Hct 26.7 L (34.0-46.0) % MCV 101.4 H (80.0-100.0) fL Plt Count 108 L (150-450) k/uL Lymphocytes # (1.0-4.8) k/uL Sodium 136 L (137-145) mmol/L Chloride 96 L (98-107) mmol/L Carbon Dioxide 37 H (22-30) mmol/L BUN 38 H (7-17) mg/dL Creatinine 1.64 H (0.52-1.04) mg/dL Glucose 135 H (74-99) mg/dL POC Glucose (mg/dL) 127 H (70-110) mg/dL Crossmatch 03/25/23 Range/Units 06:03 RBC (3.80-5.40) m/uL Hgb (11.4-16.0) gm/dL Hct (34.0-46.0) % MCV (80.0-100.0) fL Plt Count (150-450) k/uL Lymphocytes # (1.0-4.8) k/uL Sodium (137-145) mmol/L Chloride (98-107) mmol/L Carbon Dioxide (22-30) mmol/L BUN (7-17) mg/dL Creatinine (0.52-1.04) mg/dL Glucose (74-99) mg/dL POC Glucose (mg/dL) 139 H (70-110) mg/dL Crossmatch Assessment and Plan Assessment: (1) Syncope Current Visit: Yes Status: Acute Code(s): R55 - SYNCOPE AND COLLAPSE SNOMED Code(s): 930078191 (2) Anemia in chronic illness Current Visit: Yes Status: Acute Code(s): D63.8 - ANEMIA IN OTHER CHRONIC DISEASES CLASSIFIED ELSEWHERE SNOMED Code(s): 453831369 (3) GI bleeding, status post transfusion of packed RBCs Current Visit: Yes Status: Acute Code(s): K92.2 - GASTROINTESTINAL HEMORRHAGE, UNSPECIFIED SNOMED Code(s): 37316874 (4) CKD (chronic kidney disease) stage 4, GFR 15-29 ml/min Current Visit: Yes Status: Acute Code(s): N18.4 - CHRONIC KIDNEY DISEASE, STAGE 4 (SEVERE) SNOMED Code(s): 610167201 (5) Type 2 diabetes mellitus with other circulatory complications Current Visit: Yes Status: Acute Code(s): E11.59 - TYPE 2 DIABETES MELLITUS WITH OTH CIRCULATORY COMPLICATIONS SNOMED Code(s): 30237047 (6) Type 2 diabetes mellitus with other specified complication Current Visit: Yes Status: Acute Code(s): E11.69 - TYPE 2 DIABETES MELLITUS WITH OTHER SPECIFIED COMPLICATION SNOMED Code(s): 89768717 (7) Mixed hyperlipidemia Current Visit: Yes Status: Acute Code(s): E78.2 - MIXED HYPERLIPIDEMIA SNOMED Code(s): 254667059 (8) H/O malignant neoplasm of colon Current Visit: Yes Status: Acute Code(s): Z85.038 - PERSONAL HISTORY OF MALIGNANT NEOPLASM OF LARGE INTESTINE SNOMED Code(s): 332930888 (9) Essential (primary) hypertension Current Visit: Yes Status: Acute Code(s): I10 - ESSENTIAL (PRIMARY) HYPER TENSION SNOMED Code(s): 34279702 (10) Major depressive disorder, recurrent, moderate Current Visit: Yes Status: Acute Code(s): F33.1 - MAJOR DEPRESSIVE DISORDER, RECURRENT, MODERATE SNOMED Code(s): 846083928 (11) Oxygen dependent Current Visit: Yes Status: Acute Code(s): Z99.81 - DEPENDENCE ON SUPPLEMENTAL OXYGEN SNOMED Code(s): 468299436648 (12) COPD (chronic obstructive pulmonary disease) Current Visit: Yes Status: Acute Code(s): J44.9 - CHRONIC OBSTRUCTIVE PULMONARY DISEASE, UNSPECIFIED SNOMED Code(s): 14616860 (13) acute on chronic renal failure, stage III Plan: Continue on current medication regime ,monitoring and symptomatic treatment. NPO, EGD scheduled for today. Mild increase in creatinine, Cozaar discontinued. Discharge planning in progress, pending EGD results and general surgery's clearance. The impression and plan of care has been dictated as directed. : I performed a history and examination of this patient, discussed the same with the dictator. I agree with the dictator's note ,documented as a scribe. Any additional findings or plans will be noted.
[2023-03-25 11:52] VITALS: BMI 54.2
[2023-03-25 12:02] LABS: Glucose,Whole Blood 120 mg/dL (70-110)
[2023-03-25] MEDS ORDERED: LIDOCAINE 1% INJ 10MG/ML (20 ML MDV) ONE (12:18)
[2023-03-25] MEDS ORDERED: PROPOFOL 10 MG/ML 20 ML VIAL IV ONE (12:18)
[2023-03-25] MEDS ORDERED: LACTATED RINGERS 1,000 ML IV ONE (12:20)
--- NOTE | 2023-03-25 12:37 | P.PCN ---
Date of Procedure: 03/25/23 Procedure(s) Performed: Preoperative Dx: GI bleed Postoperative Dx: Duodenitis with small polyps, gastritis, gastric polyps Procedure: EGD with Bx Anesthesia: Sedation Endoscopist: Dr. Lynn Specimens: Duodenum, antrum, gastric polyp Endoscopic Procedure: The patient was on the endoscopy table in the left decubitus position. The Olympus gastroscope was inserted into the oropharynx and passed under direct visualization to the region of the third portion of the duodenum. From that point the scope was slowly withdrawn inspecting all surfaces carefully. There mild linitis with a few small polyps in the duodenum. The polyps were biopsied. No ulcerations were seen. The pylorus was widely patent. The stomach was inspected. The patient had erythematous and somewhat inflamed-appearing mucosal folds in the antrum and prepyloric region. 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 Biopsies of the antrum took place. The patient had a few small gastric polyps the largest of which was biopsied. Retroflexion revealed a normal hiatus. The esophagus was then carefully examined. There were no neoplastic inflammatory or polypoid lesions throughout the visualized esophagus. The patient was then taken to the recovery room in stable condition per anesthesia guidelines. Recommendations: Await biopsy results. Resume diet. Source of bleeding could be related to upper endoscopy findings.
[2023-03-25 14:16] VITALS: TEMP 97.7
--- NOTE | 2023-03-25 15:12 | P.DS ---
Providers Date of admission: 03/25/23 07:41 Expected date of discharge: 03/25/23 Attending physician: Michael Balderrama Consults: 03/24/23 09:56 Consult Physician Urgent Consulting Provider: Pk Lynn Reason/Comments: GI Bleed Do you want consulting provider notified?: Yes Primary care physician: [facility] Course: Final Diagnoses: (1) Syncope Current Visit: Yes Status: Acute Code(s): R55 - SYNCOPE AND COLLAPSE SNOMED Code(s): 777951096 (2) Anemia in chronic illness Current Visit: Yes Status: Acute Code(s): D63.8 - ANEMIA IN OTHER CHRONIC DISEASES CLASSIFIED ELSEWHERE SNOMED Code(s): 122586694 (3) GI bleeding, status post transfusion of packed RBCs.status post EGD with biopsy reporting duodenitis with small polyps, gastritis, gastric polyps. Current Visit: Yes Status: Acute Code(s): K92.2 - GASTROINTESTINAL HEMORRHAGE, UNSPECIFIED SNOMED Code(s): 85829236 (4) CKD (chronic kidney disease) stage 4, GFR 15-29 ml/min Current Visit: Yes Status: Acute Code(s): N18.4 - CHRONIC KIDNEY DISEASE, STAGE 4 (SEVERE) SNOMED Code(s): 592131198 (5) Type 2 diabetes mellitus with other circulatory complications Current Visit: Yes Status: Acute Code(s): E11.59 - TYPE 2 DIABETES MELLITUS WITH OTH CIRCULATORY COMPLICATIONS SNOMED Code(s): 25823923 (6) Type 2 diabetes mellitus with other specified complication Current Visit: Yes Status: Acute Code(s): E11.69 - TYPE 2 DIABETES MELLITUS WITH OTHER SPECIFIED COMPLICATION SNOMED Code(s): 82175143 (7) Mixed hyperlipidemia Current Visit: Yes Status: Acute Code(s): E78.2 - MIXED HYPERLIPIDEMIA SNOMED Code(s): 685161994 (8) H/O malignant neoplasm of colon Current Visit: Yes Status: Acute Code(s): Z85.038 - PERSONAL HISTORY OF MALIGNANT NEOPLASM OF LARGE INTESTINE SNOMED Code(s): 796477196 (9) Essential (primary) hypertension Current Visit: Yes Status: Acute Code(s): I10 - ESSENTIAL (PRIMARY) HYPERTENSION SNOMED Code(s): 61752715 (10) Major depressive disorder, recurrent, moderate Current Visit: Yes Status: Acute Code(s): F33.1 - MAJOR DEPRESSIVE DISORDER, RECURRENT, MODERATE SNOMED Code(s): 285419000 (11) Oxygen dependent Current Visit: Yes Status: Acute Code(s): Z99.81 - DEPENDENCE ON SUPPLEMENTAL OXYGEN SNOMED Code(s): 457185968367 (12) COPD (chronic obstructive pulmonary disease) Current Visit: Yes Status: Acute Code(s): J44.9 - CHRONIC OBSTRUCTIVE PULMONARY DISEASE, UNSPECIFIED SNOMED Code(s): 17777106 (13) acute on chronic renal failure, stage IV Hospital course:78-year-old morbidly obese female well-known to me. She has type 2 diabetes. She reports yesterday while in the bathroom she was straining use the toilet and had a cecal episode findings on the shower. She is assistanc e from EMS to get up. She reports later on that day she fell forward. She did not lose consciousness. When she was lightheaded. She denies any chest pains pressures or shortness of breath this time. No nausea or vomiting. The emergency room she was found to have hemoglobin 8.1. This is unusual for her. Hemoccult on the floor was positive. Repeat H&H are 7.5 and 7.7. She does mention some black stools recently. Blood pressure currently is normal. Pulse oximetry is normal S1 as his heart rate rest or in temperature. 03/23/2023: Patient admitted with syncope. She's found to be slightly anemic and have positive Hemoccult. Staff report there is some perianal irritation that may be responsible for the positive blood. Hemoglobin has been stable and last repeat hemoglobin was 7.3. She has macrocytic with an MCV of 107. Manual differential showed macrocytosis and hypochromia. Chemistries are stable and her GFR is 35. Glucose is controlled. She denies any chest pains pressures shortness of breath. Indicates her weakness is much improved from yesterday. Cardiology discontinued by systolic and started her on amlodipine. They ordered orthostatic blood pressure was reviewed and are negative. GI services not available and I discussed with the patient that we will hold off transferring her as her hemoglobin has been stable and the possibility exists that she does not have GI bleed, but other etiology leading to anemia. 03/24/2023 hemoglobin decreased to 6.8, manic reporting mild shortness of breath, minimal confusion, mild anxiety. 1 unit of packed RBCs ordered. Maintained on PPI. Patient reports black stools 3 months without abdominal pain ,which she attributes to eating Oreo cookies. Denies nausea ,vomiting. Evaluated by general surgery, scheduled for EGD tomorrow. 11/22/2022 NPO, scheduled for EGD. Received one unit of packed RBCs yesterday with current hemoglobin 8.8. Creatinine increased to 1.64, Cozaar discontinued. Denies chest pain, palpitations or shortness of breath. EGD with biopsy completed reporting duodenitis with small polyps, gastritis, gastric polyps. PT verbalized patient need for subacute rehab., PT/OT notes pending. OBRA Completed. Discharge planning in progress pending authorization for subacute rehab. Cleared by general surgery for discharge. Denies chest pain, palpitations or shortness of breath. Denies lightheadedness, dizziness or focal deficits. Authorization received, patient will be discharged to [facility] subacute rehab today in a stable condition with guarded prognosis. The impression and plan of care has been dictated as directed. : I performed a history and examination of this patient, discussed the same with the dictator. I agree with the dictator's note ,documented as a scribe. Any additional findings or plans will be noted. Patient Condition at Discharge: Stable Plan - Discharge Summary Discharge Rx Participant: No New Discharge Prescriptions: New Folic Acid-Vit B Complex-Vit C [Nephrocaps] 1 each PO DAILY cap Pantoprazole Sodium [Protonix] 40 mg PO DAILY #30 tab Acetaminophen Tab [Tylenol] 650 mg PO Q6HR PRN tab PRN Reason: Mild Pain Or Fever > 100.5 INSULIN LISPRO (HumaLOG) [humaLOG] 0 unit SQ ACHS #10 ml amLODIPine [Norvasc] 5 mg PO DAILY tab Continue buPROPion XL [Wellbutrin XL] 150 mg PO DAILY Simvastatin [Zocor] 40 mg PO HS Albuterol Inhaler [Ventolin Hfa Inhaler] 2 puff INHALATION RT-QID PRN #1 puff PRN Reason: Shortness Of Breath Or Wheezing Insulin Glargine,Hum.rec.anlog [Lantus Solostar Pen] 68 unit SQ HS metFORMIN HCL [Glucophage] 500 mg PO DAILY Multivit-Min/Iron/Folic/Lutein [Centrum Silver Women Tablet] 1 tab PO DAILY Letrozole [Femara] 2.5 mg PO DAILY Magnesium Oxide [Mag-Ox] 250 mg PO HS Ubidecarenone [Coenzyme Q10] 200 mg PO DAILY Dulaglutide [Trulicity] 4.5 mg SQ WE Pregabalin [Lyrica] 75 mg PO BID #6 cap Discontinued Nebivolol HCl [Bystolic] 10 mg PO QAM hydroCHLOROthiazide [Hydrodiuril] 25 mg PO DAILY Losartan Potassium 100 mg PO DAILY Discharge Medication List Simvastatin [Zocor] 40 mg PO HS 04/08/14 [History] buPROPion XL [Wellbutrin XL] 150 mg PO DAILY 04/08/14 [History] Albuterol Inhaler [Ventolin Hfa Inhaler] 2 puff INHALATION RT-QID PRN #1 puff 02/08/15 [Rx] Insulin Glargine,Hum.rec.anlog [Lantus Solostar Pen] 68 unit SQ HS 03/07/16 [History] metFORMIN HCL [Glucophage] 500 mg PO DAILY 03/07/16 [History] Multivit-Min/Iron/Folic/Lutein [Centrum Silver Women Tablet] 1 tab PO DAILY 06/28/16 [History] Dulaglutide [Trulicity] 4.5 mg SQ WE 03/22/23 [History] Letrozole [Femara] 2.5 mg PO DAILY 03/22/23 [History] Magnesium Oxide [Mag-Ox] 250 mg PO HS 03/22/23 [History] Ubidecarenone [Coenzyme Q10] 200 mg PO DAILY 03/22/23 [History] Acetaminophen Tab [Tylenol] 650 mg PO Q6HR PRN tab 03/25/23 [Rx] Folic Acid-Vit B Complex-Vit C [Nephrocaps] 1 each PO DAILY cap 03/25/23 [Rx] INSULIN LISPRO (HumaLOG) [humaLOG] 0 unit SQ ACHS #10 ml 03/25/23 [Rx] Pantoprazole Sodium [Protonix] 40 mg PO DAILY #30 tab 03/25/23 [Rx] Pregabalin [Lyrica] 75 mg PO BID #6 cap 03/25/23 [Rx] amLODIPine [Norvasc] 5 mg PO DAILY tab 11/21/23 [Rx] Follow up Appointment(s)/Referral(s): Michael Balderrama MD [Primary Care Provider] - 1-2 days Activity/Diet/Wound Care/Special Instructions: Anahi ALEGRE,BMP in 3 days
[2023-03-25 16:09] VITALS: BP 117/66; PULSE 63; RESP 18
[2023-03-26] MEDS ORDERED: NON FORMULARY DRUG (Dulaglutide [Trulicity] 4.5 MG/0.5 ML Each) SQ SCH (09:00)
== END 2023-03-25 15:48 | DRG 378 ==
LOC: EC 17:23 → 6NMEDSUR 23:58 → OBSVTOIN 03-25 07:41
PROVIDERS: ADMIT Family Medicine; ATTEND Family Medicine
PROC: 30233N1 Transfusion of Nonautologous Red Blood Cells into Peripheral Vein, Percutaneous Approach (ICD-10-PCS; 2023-03-24)
PROC: 0DB98ZX Excision of Duodenum, Via Natural or Artificial Opening Endoscopic, Diagnostic (ICD-10-PCS; principal; 2023-03-25 07:30)
PROC: 0DB68ZX Excision of Stomach, Via Natural or Artificial Opening Endoscopic, Diagnostic (ICD-10-PCS; principal; 2023-03-25 07:30)
DX: K29.81 Duodenitis with bleeding (principal); F33.1 Major depressive disorder, recurrent, moderate; N17.9 Acute kidney failure, unspecified; N18.4 Chronic kidney disease, stage 4 (severe); Z68.43 Body mass index [BMI] 50.0-59.9, adult; K31.7 Polyp of stomach and duodenum; K76.0 Fatty (change of) liver, not elsewhere classified; K29.71 Gastritis, unspecified, with bleeding; K31.811 Angiodysplasia of stomach and duodenum with bleeding; I12.9 Hypertensive chronic kidney disease with stage 1 through stage 4 chronic kidney disease, or unspecified chronic kidney disease; E78.2 Mixed hyperlipidemia; E66.01 Morbid (severe) obesity due to excess calories; E11.69 Type 2 diabetes mellitus with other specified complication; E11.59 Type 2 diabetes mellitus with other circulatory complications; E11.22 Type 2 diabetes mellitus with diabetic chronic kidney disease; D63.8 Anemia in other chronic diseases classified elsewhere; D50.0 Iron deficiency anemia secondary to blood loss (chronic); J44.9 Chronic obstructive pulmonary disease, unspecified; Y92.009 Unspecified place in unspecified non-institutional (private) residence as the place of occurrence of the external cause; Z79.4 Long term (current) use of insulin; Z79.811 Long term (current) use of aromatase inhibitors; Z79.84 Long term (current) use of oral hypoglycemic drugs; Z79.899 Other long term (current) drug therapy; Z80.6 Family history of leukemia; Z85.038 Personal history of other malignant neoplasm of large intestine; Z85.3 Personal history of malignant neoplasm of breast; Z85.820 Personal history of malignant melanoma of skin; Z87.442 Personal history of urinary calculi; Z90.49 Acquired absence of other specified parts of digestive tract; Z92.21 Personal history of antineoplastic chemotherapy; Z99.81 Dependence on supplemental oxygen; Z88.5 Allergy status to narcotic agent; Z88.8 Allergy status to other drugs, medicaments and biological substances; Z88.0 Allergy status to penicillin
CPT/HCPCS: 36415; 43239; 70450; 71046; 72125; 80048; 80053; 81001; 82272; 82607; 82728; 82746; 83540; 83550; 83605; 83735; 83880; 84484; 85025; 85027; 85610; 85730; 86850; 86900; 86901; 86920; 87086; 88305; 93005; 93306; 94640; 94760; 96360; 96361; 99285

== ENCOUNTER 2023-04-15 21:15 | Observation (INO) | payer MEDICARE ==
--- NOTE | 2023-04-15 21:54 | ED ---
General Adult HPI - General Stated complaint: Fall Time Seen by Provider: 04/15/23 21:28 Source: patient, EMS, RN notes reviewed, old records reviewed - History of Present Illness Initial comments: 78-year-old female who was discharged from [facility] on Friday presents with weakness, and fall which occurred at her independent living facility. Patient states she does not have enough services and is not checked on regularly. She states she had gone to the bathroom and had a minor fall after tripping on her oxygen tubing. She is on chronic oxygen therapy. She has no fever. No cough. No chest pain. Denies any injury from the fall. - Related Data Home Medications Medication Instructions Recorded Confirmed Simvastatin [Zocor] 40 mg PO HS 04/08/14 03/22/23 buPROPion XL [Wellbutrin XL] 150 mg PO DAILY 04/08/14 03/22/23 Insulin Glargine,Hum.rec.anlog 68 unit SQ HS 03/07/16 03/22/23 [Lantus Solostar Pen] metFORMIN HCL [Glucophage] 500 mg PO DAILY 03/07/16 03/22/23 Multivit-Min/Iron/Folic/Lutein 1 tab PO DAILY 06/28/16 03/22/23 [Centrum Silver Women Tablet] Dulaglutide [Trulicity] 4.5 mg SQ WE 03/22/23 03/22/23 Letrozole [Femara] 2.5 mg PO DAILY 03/22/23 03/22/23 Magnesium Oxide [Mag-Ox] 250 mg PO HS 03/22/23 03/22/23 Ubidecarenone [Coenzyme Q10] 200 mg PO DAILY 03/22/23 03/22/23 Previous Rx's Medication Instructions Recorded Albuterol Inhaler [Ventolin Hfa 2 puff INHALATION RT-QID PRN #1 02/08/15 Inhaler] puff Acetaminophen Tab [Tylenol] 650 mg PO Q6HR PRN tab 03/25/23 Folic Acid-Vit B Complex-Vit C 1 each PO DAILY cap 03/25/23 [Nephrocaps] INSULIN LISPRO (HumaLOG) [humaLOG] 0 unit SQ ACHS #10 ml 03/25/23 Pantoprazole Sodium [Protonix] 40 mg PO DAILY #30 tab 03/25/23 Pregabalin [Lyrica] 75 mg PO BID #6 cap 03/25/23 amLODIPine [Norvasc] 5 mg PO DAILY tab 03/25/23 Allergies Allergy/AdvReac Type Severity Reaction Status Date / Time bee pollen Allergy Severe Anaphylaxis Verified 04/15/23 22:02 adhesive Allergy Unknown Verified 04/15/23 22:02 hydromorphone [From Dilaudid] Allergy Hallucinati Verified 04/15/23 22:02 ons Penicillins Allergy Rash/Hives Verified 04/15/23 22:02 Review of Systems ROS Statement: Those systems with pertinent positive or pertinent negative responses have been documented in the HPI. ROS Other: All systems not noted in ROS Statement are negative. Past Medical History Past Medical History: Cancer, COPD, Diabetes Mellitus, Hyperlipidemia, Hypertension, Liver Disease, Osteoarthritis (OA), Sleep Apnea/CPAP/BIPAP Additional Past Medical History / Comment(s): hx melanoma, IDDM type II, "fatty liver", colon CANCER with surgery and chemo, KIDNEY STONE, neuropathy bilateral hands and feet. Arthritis in thumbs. bilateral lower leg edema, no machine for sleep apnea. History of Any Multi-Drug Resistant Organisms: None Reported Past Surgical History: Bowel Resection, Breast Surgery, Orthopedic Surgery Additional Past Surgical History / Comment(s): 03/08/16 repair incarcerated hernia with mesh and removal of port a cath. Other surgical hx: D&C, left foot surgery, PORT A CATHETER, DENTAL IMPLANTS. 18 inches of bowel removed for Cancer. arthroscopic rt knee to remove torn meniscus. bilateral cataracts removed, right breast lumpectomy Past Anesthesia/Blood Transfusion Reactions: Previous Problems w/ Anesthesia Additional Past Anesthesia/Blood Transfusion Reaction / Comment(s): "came out fighting, difficult coming out" hard to wake up. Past Psychological History: Depression Smoking Status: Former smoker Past Alcohol Use History: None Reported Past Drug Use History: None Reported - Past Family History Brother(s) Family Medical History: Cancer Additional Family Medical History / Comment(s): leukemia 2 types General Exam General appearance: alert, in no apparent distress Head exam: Present: atraumatic, normocephalic Eye exam: Present: normal appearance, PERRL ENT exam: Present: normal exam Neck exam: Present: normal inspection. Absent: tenderness, meningismus Respiratory exam: Present: normal lung sounds bilaterally. Absent: respiratory distress Cardiovascular Exam: Present: bradycardia, irregular rhythm GI/Abdominal exam: Present: soft. Absent: distended, tenderness, guarding Extremities exam: Present: pedal edema Psychiatric exam: Present: normal affect, normal mood Skin exam: Present: warm, dry Course Vital Signs 04/15/23 21:41 Temperature 98.7 F Pulse Rate 71 Respiratory 16 Rate Blood Pressure 91/37 O2 Sat by Pulse 96 Oximetry Medical Decision Making - Medical Decision Making Was pt. sent in by a medical professional or institution ([facility], [facility], urgent care, hospital, or custodial...) When possible be specific @ -No Did you speak to anyone other than the patient for history (EMS, parent, family, police, friend...)? What history was obtained from this source @ -No Did you review nursing and triage notes (agree or disagree)? Why? @ -I reviewed and agree with nursing and triage notes Were old charts reviewed (outside hosp., previous admission, EMS record, old EKG, old radiological studies, urgent care reports/EKG's, custodial records)? Report findings @ -No old charts were reviewed Differential Diagnosis (chest pain, altered mental status, abdominal pain women, abdominal pain men, vaginal bleeding, weakness, fever, dyspnea, syncope, headache, dizziness, GI bleed, back pain, seizure, CVA, palpatations, mental health, musculoskeletal)? @ Differential Weakness: Hypoglycemia, shock, sepsis, hyponatremia, anemia, infection, NV, ETOH, adverse medicine reaction, overdose, stroke, this is not meant to be an all-inclusive list. EKG interpreted by me (3pts min.). @ Sinus rhythm, narrow complex QRS, ventricular rate of 46, QRS duration 91, QTC 427 X-rays interpreted by me (1pt min.). @ -None done CT interpreted by me (1pt min.). @ -None done U/S interpreted by me (1pt. min.). @ -None done What testing was considered but not performed or refused? (CT, X-rays, U/S, labs)? Why? @ -None What meds were considered but not given or refused? Why? @ -None Did you discuss the management of the patient with other professionals (professionals i.e. [facility], [facility], lab, RT, psych nurse, geriatric social worker, wire threader, teacher, international first officer, case management manager)? Give summary @ -No Was smoking cessation discussed for >3mins.? @ -No Was critical care preformed (if so, how long)? @ -No Were there social determinants of health that impacted care today? How? (Home lessness, low income, unemployed, alcoholism, drug addiction, transportation, low edu. Level, literacy, decrease access to med. care, [place] [facility], rehab)? @ -No Was there de-escalation of care discussed even if they declined (Discuss DNR or withdrawal of care, Hospice)? DNR status @ -No What co-morbidities impacted this encounter? (DM, HTN, Smoking, COPD, CAD, Cancer, CVA, ARF, Chemo, Hep., AIDS, mental health diagnosis, sleep apnea, morbid obesity)? @ Diabetes, hypertension Was patient admitted / discharged? Hospital course, mention meds given and route, prescriptions, significant lab abnormalities, going to OR and other pertinent info. @ -[78 is obtained from home with increased weakness, multiple falls. Patient was discharged from custodial on Friday and presents for evaluation on Friday evening. She has not been doing well at home and has fallen multiple times. She denies injury with the fall. Denies chest pain or fever. No vomiting. Patient has laboratory tests reveal urine anemia of 8 which is stable. Urinalysis and electrolytes are pending. The patient will likely require placement or continued rehabilitation, possible increased support at home. Undiagnosed new problem with uncertain prognosis? @ -No Drug Therapy requiring intensive monitoring for toxicity (Heparin, Nitro, Insu liliam, Cardizem)? @ -No Were any procedures done? @ -No Diagnosis/symptom? @ -Weakness, multiple falls, anemia Acute, or Chronic, or Acute on Chronic? @ Acute on chronic Uncomplicated (without systemic symptoms) or Complicated (systemic symptoms)? @ -default Side effects of treatment? @ -No Exacerbation, Progression, or Severe Exacerbation? @ -No Poses a threat to life or bodily function? How? (Chest pain, USA, NV, pneumonia, PE, COPD, DKA, ARF, appy, cholecystitis, CVA, Diverticulitis, Homicidal, Suicidal, threat to staff... and all critical care pts) @ -No - Lab Data Result diagrams: 04/15/23 22:12 Lab Results 04/15/23 04/15/23 04/15/23 Range/Units 22:12 22:12 22:12 WBC 6.0 (3.8-10.6) k/uL RBC 2.55 L (3.80-5.40) m/uL Hgb 8.0 L (11.4-16.0) gm/dL Hct 24.6 L (34.0-46.0) % MCV 96.4 D (80.0-100.0) fL MCH 31.5 (25.0-35.0) pg MCHC 32.7 (31.0-37.0) g/dL RDW 15.0 (11.5-15.5) % Plt Count 110 L (150-450) k/uL MPV 12.5 Neutrophils % 77 % Lymphocytes % 14 % Monocytes % 5 % Eosinophils % 2 % Basophils % 0 % Neutrophils # 4.6 (1.3-7.7) k/uL Lymphocytes # 0.8 L (1.0-4.8) k/uL Monocytes # 0.3 (0-1.0) k/uL Eosinophils # 0.1 (0-0.7) k/uL Basophils # 0.0 (0-0.2) k/uL Hypochromasia Marked Poikilocytosis Slight PT 11.6 (10.0-12.5) sec INR 1.1 (<1.2) APTT 22.0 (22.0-30.0) sec Plasma Lactic Acid Joe 2.8 H* (0.7-2.0) mmol/L Disposition Clinical Impression: Fall, Oxygen dependent, Weakness Disposition: ADMITTED IP TO THIS HOSP Condition: Stable Is patient prescribed a controlled substance at d/c from ED?: No Referrals: Michael Balderrama MD [Primary Care Provider] - 1-2 days Time of Disposition: 23:40
[2023-04-15 22:56] LABS: Basophils % (A) 0 %; Eosinophils # (A) 0.1 k/uL (0-0.7); Eosinophils % (A) 2 %; HCT 24.6 % (34.0-46.0); Hypochromasia Marked; Lymphocytes # (A) 0.8 k/uL (1.0-4.8); Lymphocytes % (A) 14 %; MCH 31.5 pg (25.0-35.0); MCHC 32.7 g/dL (31.0-37.0); Mean Platelet Volume 12.5; Monocytes # (A) 0.3 k/uL (0-1.0); Monocytes % (A) 5 %; Neutrophils # (A) 4.6 k/uL (1.3-7.7); Neutrophils % (A) 77 %; Platelet Count 110 k/uL (150-450); Poikilocytosis Slight; RBC 2.55 m/uL (3.80-5.40)
[2023-04-15 23:01] LABS: MCV 96.4 fL (80.0-100.0)
[2023-04-15] MEDS ORDERED: SODIUM CHLORIDE 0.9% 500 ML 500 ML IV ONE (23:06)
[2023-04-15 23:09] LABS: INR 1.1 (<1.2); Prothrombin Time 11.6 sec (10.0-12.5)
[2023-04-15] MEDS ORDERED: ACETAMINOPHEN TAB 325 MG TAB PO PRN (23:36)
[2023-04-15] MEDS ORDERED: NALOXONE 0.4 MG/ML 1 ML VIAL IV PRN (23:36)
[2023-04-16] MEDS: SODIUM CHLORIDE 0.9% 1,000 ML IV SCH ×2 (02:24→14:16)
[2023-04-16 03:39] LABS: ALT 19 U/L (4-34); AST 24 U/L (14-36); African American GFR (CKD) 24 (>60 ml/min/1.73 sqM); Albumin 2.8 g/dL (3.5-5.0); Alkaline Phosphatase 94 U/L (38-126); Anion Gap 7 mmol/L; Blood Urea Nitrogen 43 mg/dL (7-17); Calcium 8.2 mg/dL (8.4-10.2); Carbon Dioxide 34 mmol/L (22-30); Chloride 103 mmol/L (98-107); Glucose 101 mg/dL (74-99); Magnesium 2.2 mg/dL (1.6-2.3); Non-African American GFR(CKD) 21 (>60 ml/min/1.73 sqM); Potassium 4.2 mmol/L (3.5-5.1); Sodium 144 mmol/L (137-145); Total Bilirubin 0.3 mg/dL (0.2-1.3); Total Protein 6.2 g/dL (6.3-8.2)
[2023-04-16] MEDS: PANTOPRAZOLE 40 MG/10 ML VIAL IV SCH (09:38)
[2023-04-16] MEDS ORDERED: DEXTROSE 50% SYRINGE 50 ML IVP PRN ×2 (10:22)
[2023-04-16] MEDS ORDERED: IPRATROPIUM-ALBUTEROL 3 ML NEB INHALATION PRN (10:27)
[2023-04-16] MEDS ORDERED: NON FORMULARY DRUG (Ubidecarenone [Coenzyme Q10] 200 MG Capsule) PO SCH (10:30)
[2023-04-16] MEDS: NEBIVOLOL 5 MG TAB PO SCH (10:40)
[2023-04-16 10:52] LABS: Glucose,Whole Blood 171 mg/dL (70-110)
[2023-04-16] MEDS: buPROPion XL 150 MG TAB.ER.24H PO SCH (10:54)
[2023-04-16] MEDS: INSULIN DETEMIR (LEVEMIR) 100 UNIT/ML SYR SQ SCH (10:54)
[2023-04-16] MEDS: LETROZOLE 2.5 MG TAB PO SCH (10:55)
[2023-04-16] MEDS: PREGABALIN 75 MG CAP PO SCH ×2 (10:55→20:34)
--- NOTE | 2023-04-16 11:21 | P.HPIM ---
History of Present Illness H&P Date: 04/16/23 Chief Complaint: Increased weakness, falls This is a pleasant 78-year-old female resident of [facility], morbidly obese, female recently hospitalized with syncope, anemia, GI bleed status post EGD reporting duodenitis small polyps gastritis and gastric polyps and multiple other medical issues discharged to [facility] subacute rehab. And reports she was discharged home from [facility] on Friday, presented to the ER status post fall with complaints of increased weakness. Patient denies syncope, denies hitting head. States minor fall after slipping on her oxygen tubing but reports multiple falls since arriving back home. Complains of new onset right shoulder pain-limited range of motion. Denies cough, congestion, fever or chills. Denies nausea vomiting or diarrhea. Denies abdominal pain. EKG re Denies chest pain, palpitations or shortness of breath. Afebrile, normal WBC. Chronic O2 dependent, maintaining O2 sats in the high 90s on 3 L nasal cannula. Respiratory rate 16-20. No tachycardia.Hemoglobin 8, platelets 110, INR 1. Bicarbonate 34, BUN 43, creatinine 2.19 him a glucose 101. Lactic acid 2.8, received IV fluid hydration, resolved currently at 1.6. Electrolytes within normal limits. Review of Systems ROS Statement: Those systems with pertinent positive or pertinent negative responses have been documented in the HPI. ROS Other: All systems not noted in ROS Statement are negative. Past Medical History Past Medical History: Cancer, COPD, Diabetes Mellitus, Hyperlipidemia, Hypertension, Liver Disease, Osteoarthritis (OA), Sleep Apnea/CPAP/BIPAP Additional Past Medical History / Comment(s): hx melanoma, IDDM type II, "fatty liver", colon CANCER with surgery and chemo, KIDNEY STONE, neuropathy bilateral hands and feet. Arthritis in thumbs. bilateral lower leg edema, no machine for sleep apnea. History of Any Multi-Drug Resistant Organisms: None Reported Past Surgical History: Bowel Resection, Breast Surgery, Orthopedic Surgery Additional Past Surgical History / Comment(s): 03/08/16 repair incarcerated hernia with mesh and removal of port a cath. Other surgical hx: D&C, left foot surgery, PORT A CATHETER, DENTAL IMPLANTS. 18 inches of bowel removed for Cancer. arthroscopic rt knee to remove torn meniscus. bilateral cataracts removed, right breast lumpectomy Past Anesthesia/Blood Transfusion Reactions: Previous Problems w/ Anesthesia Additional Past Anesthesia/Blood Transfusion Reaction / Comment(s): "came out fighting, difficult coming out" hard to wake up. Past Psychological History: Depression Smoking Status: Former smoker Past Alcohol Use History: None Reported Past Drug Use History: None Reported - Past Family History Brother(s) Family Medical History: Cancer Additional Family Medical History / Comment(s): leukemia 2 types Medications and Allergies Home Medications Medication Instructions Recorded Confirmed Type Simvastatin [Zocor] 40 mg PO HS 04/08/14 04/16/23 History buPROPion XL [Wellbutrin XL] 150 mg PO DAILY 04/08/14 04/16/23 History Insulin Glargine,Hum.rec.anlog 69 unit SQ HS 03/07/16 04/16/23 History [Lantus Solostar Pen] Multivit-Min/Iron/Folic/Lutein 1 tab PO DAILY 06/28/16 04/16/23 History [Centrum Silver Women Tablet] Letrozole [Femara] 2.5 mg PO DAILY 03/22/23 04/16/23 History Magnesium Oxide [Mag-Ox] 500 mg PO HS 03/22/23 04/16/23 History Ubidecarenone [Coenzyme Q10] 200 mg PO DAILY 03/22/23 04/16/23 History Acetaminophen Tab [Tylenol] 650 mg PO Q6HR PRN tab 04/16/23 Rx Dulaglutide [Trulicity] 1.5 mg SQ WE 04/16/23 04/16/23 History INSULIN LISPRO (HumaLOG) [humaLOG] See Protocol SQ ACHS 04/16/23 04/16/23 History Loratadine 10 mg PO HS 04/16/23 04/16/23 History Nebivolol HCl [Bystolic] 10 mg PO DAILY 04/16/23 04/16/23 History Pregabalin [Lyrica] 75 mg PO BID 3 Days #6 cap 04/16/23 Rx Allergies Allergy/AdvReac Type Severity Reaction Status Date / Time bee pollen Allergy Severe Anaphylaxis Verified 04/16/23 07:53 adhesive Allergy Unknown Verified 04/16/23 07:53 hydromorphone [From Dilaudid] Allergy Hallucinati Verified 04/16/23 07:53 ons Penicillins Allergy Rash/Hives Verified 04/16/23 07:53 Physical Exam Vitals: Vital Signs Temp Pulse Pulse Resp BP BP Pulse Ox 04/16/23 08:50 98.3 F 65 15 102/56 95 04/16/23 07:00 98.1 F 66 18 130/69 95 04/16/23 06:30 98.5 F 66 20 123/62 93 L 04/16/23 06:00 65 18 115/58 98 04/16/23 05:00 67 17 122/54 97 04/16/23 04:30 64 18 125/57 96 04/16/23 04:00 42 L 22 89/71 96 04/16/23 02:00 73 17 112/62 97 04/16/23 01:30 70 17 125/66 98 04/16/23 01:00 73 17 117/57 97 04/16/23 00:30 73 18 117/57 98 04/16/23 00:00 75 21 136/57 98 04/15/23 23:30 77 22 125/60 04/15/23 23:00 75 16 132/70 97 04/15/23 22:30 74 19 120/55 96 04/15/23 21:41 98.7 F 71 16 91/37 96 Intake and Output 04/15/23 04/16/23 04/16/23 22:59 06:59 14:59 Other: Voiding Method External Catheter Weight 173.726 kg - Exam GENERAL: Elderly obese female, sitting up in bed, mild anxiety HEAD: Atraumatic, normocephalic. NECK: Supple, no JVD LUNGS: Unlabored, equal air entry, essentially clear, slightly coarse. No wh eezes rales or rhonchi. HEART: Regular rate and rhythm without murmurs, rubs or gallops.S1S2 Normal ABDOMEN: Soft, obese, nontender, normoactive bowel sounds. No guarding, no rebound. No masses appreciated. Distended due to truncal obesity EXTREMITIES: no pitting. No clubbing or cyanosis. Positive edema with hyperkeratinization. NEUROLOGICAL: Cranial nerves II through XII grossly intact. No focal deficit PSYCH: Normal mood, normal affect. SKIN: Warm, Dry, no rashes noted. Results CBC & Chem 7: 04/15/23 22:12 04/16/23 02:28 Labs: Abnormal Lab Results - Last 24 Hours (Table) 04/15/23 04/15/2304/16/23 Range/Units 22:12 22:12 02:28 RBC 2.55 L (3.80-5.40) m/uL Hgb 8.0 L (11.4-16.0) gm/dL Hct 24.6 L (34.0-46.0) % Plt Count 110 L (150-450) k/uL Lymphocytes # 0.8 L (1.0-4.8) k/uL Carbon Dioxide 34 H (22-30) mmol/L BUN 43 H (7-17) mg/dL Creatinine 2.19 H (0.52-1.04) mg/dL Glucose 101 H (74-99) mg/dL Plasma Lactic Acid Joe 2.8 H* (0.7-2.0) mmol/L Calcium 8.2 L (8.4-10.2) mg/dL Total Protein 6.2 L (6.3-8.2) g/dL Albumin 2.8 L (3.5-5.0) g/dL Assessment and Plan Assessment: Multiple falls, increased weakness, recently discharged from subacute rehab Dehydration Lactic acidosis, resolved with IV fluid hydration Chronic hypoxic respiratory failure COPD Acute on Chronic kidney disease stage IV Chronic anemia related to the above, recent EGD on 03/25/2023 reporting duoden itis, small polyps, gastritis, gastric polyps Diabetes mellitus type 2 Essential hypertension Hyperlipidemia History of malignant neoplasm of colon Depression Plan: Continue on current medication regime ,monitoring and symptomatic treatment. Right shoulder x-ray and UA ordered. Gentle IV hydration. PT/OT/case management consulted for discharge planning to possibly return to subacute rehab. ARB,HCTZ and metformin placed on hold secondary to renal function. Close monitoring of renal function. Plan discussed with patient who is in agreement for return to subacute rehab. Patient will require a nebulizer machine upon discharge from subacute rehab. The impression and plan of care has been dictated as directed. : I performed a history and examination of this patient, discussed the same with the dictator. I agree with the dictator's note ,documented as a scribe. Any additional findings or plans will be noted.
[2023-04-16] MEDS: IPRATROPIUM-ALBUTEROL 3 ML NEB INHALATION SCH ×3 (11:41→20:51)
[2023-04-16 12:04] LABS: Glucose,Whole Blood 132 mg/dL (70-110)
[2023-04-16] MEDS: INSULIN ASPART (NovoLOG) 100 UNIT/ML VIAL SQ SCH ×3 (12:04→20:34)
[2023-04-16 14:28] LABS: Bacteria,Urine Occasional /hpf; Mucus,Urine Rare /hpf; RBC,Urine 25 /hpf (0-5); Squamous Epithelial Cell,Urine 3 /hpf (0-4); WBC,Urine 59 /hpf (0-5)
[2023-04-16 14:31] LABS: Appearance,Urine Clear (Clear); Bilirubin,Urine Negative (Negative); Blood,Urine Negative (Negative); Color,Urine Light Orange; Glucose,Urine (UA) Negative (Negative); Ketones,Urine Negative (Negative); Leukocyte Esterase,Urine Moderate (Negative); Nitrite,Urine Negative (Negative); Protein,Urine Trace (Negative); Specific Gravity,Urine 1.025 (1.001-1.035); Urobilinogen,Urine 0.2 mg/dL (<2.0)
[2023-04-16 17:04] LABS: Glucose,Whole Blood 121 mg/dL (70-110)
[2023-04-16] MEDS ORDERED: Acetaminophen-Codeine 300-30mg TAB PO PRN (17:54)
--- NOTE | 2023-04-16 18:00 | XR ---
EXAMINATION TYPE: XR shoulder complete RT DATE OF EXAM: 04/16/2023 COMPARISON: NONE HISTORY: Pain TECHNIQUE: Shoulder examined in 3 projections. FINDINGS: The humeral head articulates with the glenoid. The acromio-clavicular junction is normal. No acute fractures or dislocations are evident. A follow up study can be performed 7-10 days from acute trauma for continued pain. MRI can be perfor med if soft tissue evaluation would be of benefit. IMPRESSION: 1. No acute osseous right abnormality.
[2023-04-16] MEDS: Acetaminophen-Codeine 300-30mg TAB PO PRN (18:20)
[2023-04-16] MEDS ORDERED: DICLOFENAC SODIUM GEL 100 GM TUBE TOPICAL PRN (18:22)
[2023-04-16 20:30] LABS: Glucose,Whole Blood 171 mg/dL (70-110)
[2023-04-16] MEDS ORDERED: MAGNESIUM OXIDE 400 MG TAB PO SCH (21:00)
[2023-04-16] MEDS ORDERED: LORATADINE 10 MG TAB PO SCH (21:00)
[2023-04-16] MEDS ORDERED: ATORVASTATIN 20 MG TAB PO SCH (21:00)
[2023-04-17] MEDS: Acetaminophen-Codeine 300-30mg TAB PO PRN ×2 (00:32→14:34)
[2023-04-17] MEDS: SODIUM CHLORIDE 0.9% 1,000 ML IV SCH (01:15)
[2023-04-17] MEDS: IPRATROPIUM-ALBUTEROL 3 ML NEB INHALATION SCH ×3 (05:47→15:50)
[2023-04-17] MEDS: INSULIN ASPART (NovoLOG) 100 UNIT/ML VIAL SQ SCH ×3 (06:26→17:42)
[2023-04-17 06:27] LABS: Glucose,Whole Blood 119 mg/dL (70-110)
[2023-04-17] MEDS ORDERED: LORATADINE 10 MG TAB PO SCH (09:00)
[2023-04-17] MEDS ORDERED: MULTIVITAMINS, THERA 1 EACH TAB PO SCH (09:00)
[2023-04-17 09:09] LABS: BUN/Creat Ratio 19.94 Ratio (12.00-20.00); Blood Urea Nitrogen 33.9 mg/dL (9.0-27.0); Calcium 8.7 mg/dL (8.7-10.3); Carbon Dioxide 29.2 mmol/L (21.6-31.8); Chloride 104 mmol/L (96-109); Glucose 97 mg/dL (70-110); Potassium 4.1 mmol/L (3.5-5.5); Sodium 142 mmol/L (135-145)
[2023-04-17 10:01] LABS: Basophils # (A) 0.03 X 10*3/uL (0.00-0.10); Basophils % (A) 0.5 %; Eosinophils # (A) 0.13 X 10*3/uL (0.04-0.35); Eosinophils % (A) 2.4 %; HGB 7.4 g/dL (12.0-15.0); Lymphocytes # (A) 0.79 X 10*3/uL (0.90-5.00); Lymphocytes % (A) 14.3 %; MCH 29.7 pg (27.0-32.0); MCHC 29.6 g/dL (32.0-37.0); MCV 100.4 FL (80.0-97.0); Mean Platelet Volume 12.4 FL (9.5-12.2); Monocytes # (A) 0.41 X 10*3/uL (0.20-1.00); Monocytes % (A) 7.4 %; NRBC Per 100 WBC 0 X 10*3/uL (0.00-0.01); Neutrophils # (A) 4.13 X 10*3/uL (1.80-7.70); Platelet Count 111 X 10*3/uL (140-440); RBC 2.49 X 10*6/uL (4.10-5.20); WBC 5.51 X 10*3/uL (4.50-10.00)
[2023-04-17] MEDS: LETROZOLE 2.5 MG TAB PO SCH (10:07)
[2023-04-17] MEDS: INSULIN DETEMIR (LEVEMIR) 100 UNIT/ML SYR SQ SCH (10:07)
[2023-04-17] MEDS: PANTOPRAZOLE 40 MG/10 ML VIAL IV SCH (10:07)
[2023-04-17] MEDS: PREGABALIN 75 MG CAP PO SCH (10:08)
[2023-04-17] MEDS: NEBIVOLOL 5 MG TAB PO SCH (10:08)
[2023-04-17] MEDS: buPROPion XL 150 MG TAB.ER.24H PO SCH (10:08)
[2023-04-17 12:55] LABS: Glucose,Whole Blood 124 mg/dL (70-110)
[2023-04-17] MEDS ORDERED: FUROSEMIDE 10 MG/ML 2 ML VIAL IV ONE (13:22)
--- NOTE | 2023-04-17 13:41 | P.DS ---
Providers Date of admission: 04/15/23 23:38 Expected date of discharge: 04/17/23 Attending physician: Michael Balderrama Primary care physician: Michael Balderrama Hospital Course: Final Diagnoses: Multiple falls, increased weakness, recently discharged from subacute rehab Dehydration Lactic acidosis, resolved with IV fluid hydration Chronic hypoxic respiratory failure COPD Acute on Chronic kidney disease stage IV Chronic anemia related to the above, recent EGD on 03/25/2023 reporting duodenitis, small polyps, gastritis, gastric polyps, status post 1 unit of packed RBCs. Diabetes mellitus type 2 Essential hypertension Hyperlipidemia History of malignant neoplasm of colon Depression Hospital course:This is a pleasant 78-year-old female resident of [facility], morbidly obese, female recently hospitalized with syncope, anemia, GI bleed status post EGD reporting duodenitis small polyps gastritis and gastric polyps and multiple other medical issues discharged to [facility] rehab. And reports she was discharged home from [facility] on Friday, presented to the ER status post fall with complaints of increased weakness. Patient denies syncope, denies hitting head. States minor fall after slipping on her oxygen tubing but reports multiple falls since arriving back home. Complains of new onset right shoulder pain-limited range of motion. Denies cough, congestion, fever or chills. Denies nausea vomiting or diarrhea. Denies abdominal pain. EKG re Denies chest pain, palpitations or shortness of breath. Afebrile, normal WBC. Chronic O2 dependent, maintaining O2 sats in the high 90s on 3 L nasal cannula. Respiratory rate 16-20. No tachycardia.Hemoglobin 8, platelets 110, INR 1. Bicarbonate 34, BUN 43, creatinine 2.19 him a glucose 101. Lactic acid 2.8, received IV fluid hydration, resolved currently at 1.6. Electrolytes within normal limits. Hemoglobin 7.4, asymptomatic. Vital signs stable, no tachycardia, maintaining O2 sats in the 90s on 3 L nasal cannula. Denies chest pain, palpitations or increased shortness of breath. No signs or symptoms of bleeding. As previously mentioned patient's anemia worked up on 03/25/2023. Patient will receive 1 unit of packed RBCs followed by Lasix 20 mg IV push 1 and then proceed to [facility] subacute rehab today in a stable condition with guarded prognosis. The impression and plan of care has been dictated as directed. : I performed a history and examination of this patient, discussed the same with the dictator. I agree with the dictator's note ,documented as a scribe. Any additional findings or plans will be noted. Patient Condition at Discharge: Stable Plan - Discharge Summary Discharge Rx Participant: No New Discharge Prescriptions: New Acetaminophen Tab [Tylenol] 650 mg PO Q6HR PRN tab PRN Reason: Mild Pain Or Fever > 100.5 Ipratropium-Albuterol Nebulize [Duoneb 0.5 mg-3 mg/3 ml Soln] 3 ml INHALATION RT-QID each Pantoprazole [Protonix] 40 mg PO DAILY #30 tab Ipratropium-Albuterol Nebulize [Duoneb 0.5 mg-3 mg/3 ml Soln] 3 ml INHALATION Q4H PRN each PRN Reason: Shortness Of Breath Or Wheezing Continue buPROPion XL [Wellbutrin XL] 150 mg PO DAILY Simvastatin [Zocor] 40 mg PO HS Insulin Glargine,Hum.rec.anlog [Lantus Solostar Pen] 69 unit SQ HS Multivit-Min/Iron/Folic/Lutein [Centrum Silver Women Tablet] 1 tab PO DAILY Letrozole [Femara] 2.5 mg PO DAILY Magnesium Oxide [Mag-Ox] 500 mg PO HS Ubidecarenone [Coenzyme Q10] 200 mg PO DAILY Nebivolol HCl [Bystolic] 10 mg PO DAILY Loratadine 10 mg PO HS Dulaglutide [Trulicity] 1.5 mg SQ WE INSULIN LISPRO (HumaLOG) [humaLOG] See Protocol SQ ACHS Pregabalin [Lyrica] 75 mg PO BID 3 Days #6 cap Discontinued metFORMIN HCL [Glucophage] 500 mg PO DAILY Losartan Potassium 100 mg PO DAILY hydroCHLOROthiazide [Hydrodiuril] 25 mg PO DAILY Discharge Medication List Simvastatin [Zocor] 40 mg PO HS 04/08/14 [History] buPROPion XL [Wellbutrin XL] 150 mg PO DAILY 04/08/14 [History] Insulin Glargine,Hum.rec.anlog [Lantus Solostar Pen] 69 unit SQ HS 03/07/16 [History] Multivit-Min/Iron/Folic/Lutein [Centrum Silver Women Tablet] 1 tab PO DAILY 06/28/16 [History] Letrozole [Femara] 2.5 mg PO DAILY 03/22/23 [History] Magnesium Oxide [Mag-Ox] 500 mg PO HS 03/22/23 [History] Ubidecarenone [Coenzyme Q10] 200 mg PO DAILY 03/22/23 [History] Acetaminophen Tab [Tylenol] 650 mg PO Q6HR PRN tab 04/16/23 [Rx] Dulaglutide [Trulicity] 1.5 mg SQ WE 04/16/23 [History] INSULIN LISPRO (HumaLOG) [humaLOG] See Protocol SQ ACHS 04/16/23 [History] Loratadine 10 mg PO HS 04/16/23 [History] Nebivolol HCl [Bystolic] 10 mg PO DAILY 04/16/23 [History] Pregabalin [Lyrica] 75 mg PO BID 3 Days #6 cap 04/16/23 [Rx] Ipratropium-Albuterol Nebulize [Duoneb 0.5 mg-3 mg/3 ml Soln] 3 ml INHALATION Q4H PRN each 04/17/23 [Rx] Ipratropium-Albuterol Nebulize [Duoneb 0.5 mg-3 mg/3 ml Soln] 3 ml INHALATION RT-QID each 04/17/23 [Rx] Pantoprazole [Protonix] 40 mg PO DAILY #30 tab 04/17/23 [Rx] Follow up Appointment(s)/Referral(s): Michael Balderrama MD [Primary Care Provider] - 1-2 days Activity/Diet/Wound Care/Special Instructions: Anahi LUCY: CBC,BMP in 2 days * Patient will require a nebulizer machine upon discharge from subacute rehab.* Discharge Disposition: TRANSFER TO SNF/ECF
[2023-04-17 17:36] VITALS: PULSE 68
[2023-04-17 17:39] LABS: Glucose,Whole Blood 134 mg/dL (70-110)
[2023-04-17 17:59] VITALS: TEMP 98.3
[2023-04-17 18:22] VITALS: BP 132/69; RESP 12
== END 2023-04-17 18:50 ==
LOC: EC 21:15 → 6NMEDSUR 23:38
PROVIDERS: ADMIT Family Medicine; ATTEND Family Medicine
DX: R53.1 Weakness (principal); R29.6 Repeated falls; E86.0 Dehydration; E87.20 Acidosis, unspecified; J96.11 Chronic respiratory failure with hypoxia; N17.9 Acute kidney failure, unspecified; I12.9 Hypertensive chronic kidney disease with stage 1 through stage 4 chronic kidney disease, or unspecified chronic kidney disease; N18.4 Chronic kidney disease, stage 4 (severe); E11.22 Type 2 diabetes mellitus with diabetic chronic kidney disease; D63.1 Anemia in chronic kidney disease; J44.9 Chronic obstructive pulmonary disease, unspecified; E78.5 Hyperlipidemia, unspecified; G47.30 Sleep apnea, unspecified; E11.40 Type 2 diabetes mellitus with diabetic neuropathy, unspecified; F32.A Depression, unspecified; E66.01 Morbid (severe) obesity due to excess calories; Z68.43 Body mass index [BMI] 50.0-59.9, adult; Z85.038 Personal history of other malignant neoplasm of large intestine; Z85.820 Personal history of malignant melanoma of skin; Z87.891 Personal history of nicotine dependence; Z99.81 Dependence on supplemental oxygen; Z79.899 Other long term (current) drug therapy; Z79.84 Long term (current) use of oral hypoglycemic drugs; Z79.811 Long term (current) use of aromatase inhibitors; Z79.4 Long term (current) use of insulin; Z88.0 Allergy status to penicillin; Z88.5 Allergy status to narcotic agent
CPT/HCPCS: 96376; 36430; 96360; 96361 ×2; 96372 ×2; 96374; 96375; 99285; 36415; 94640 ×4; 94760 ×2; 93005; 97530; 97162; 97535; 97166; 86900; 86901; 80053; 80048; 83605 ×2; 83735; 85025 ×2; 85610; 85730; 86850; 86920; 81001; 87086; 83036; 73030; G0378 ×3; P9016; J1940; C9113 ×2